=== PATIENT | male | born 1990 | race Caucasian/White ===

== ENCOUNTER 2021-10-02 22:54 | Inpatient (IN) | payer OTHER, SELFPAY ==
[2021-10-02 23:11] VITALS: BMI 27.4
--- NOTE | 2021-10-02 23:13 | ED_ITS ---
HPI - Psych General Chief Complaint: Psychiatric Symptoms <Soraida Nunez NP - Last Filed: 10/03/21 01:59> Stated Complaint: crisis/SI with plan <Soraida Nunez NP - Last Filed: 10/03/21 01:59> Time Seen by Provider: 10/03/21 07:53 <Soraida Nunez NP - Last Filed: 10/03/21 01:59> Source: patient <Soraida Nunez NP - Last Filed: 10/03/21 01:59> Mode of arrival: ambulatory <Soraida Nunez NP - Last Filed: 10/03/21 01:59> Limitations: altered mental status <Soraida Nunez NP - Last Filed: 10/03/21 01:59> History of Present Illness HPI Narrative: 31-year-old male presents for crisis evaluation. Patient is delusional, religiously preoccupied, and is not answering any questions appropriately. <Soraida Nunez NP - Last Filed: 10/03/21 01:59> MD complaint: other (Acute psychosis) <Soraida Nunez NP - Last Filed: 10/03/21 01:59> Onset (ago): unknown <Soraida Nunez NP - Last Filed: 10/03/21 01:59> History of same: Yes <Soraida Nunez NP - Last Filed: 10/03/21 01:59> Context: not taking psychiatric medications <Soraida Nunez NP - Last Filed: 09/08 12/28 01:59> Associated psychiatric symptoms: suicidal ideation, auditory hallucinations, visual hallucinations and delusions <Soradia Nunez NP - Last Filed: 10/03/21 01:59> Treatments prior to arrival: none <Soraida Nunez NP - Last Filed: 10/03/21 01:59> Related Data Home Medications: Home Medications Medication Instructions Recorded Confirmed atenolol 100 mg tablet 1 tab PO DAILY 10/03/21 10/03/21 <Soraida Nunez NP - Last Filed: 10/03/21 01:59> Allergies/Adverse Reactions: Allergies Allergy/AdvReac Type Severity Reaction Status Date / Time Sulfa (Sulfonamide Allergy Unknown RASH Verified 10/03/21 06:12 Antibiotics) tomato [TOMATO] Allergy Unknown MIGRAINS Verified 10/03/21 06:13 <Soraida Nunez NP - Last Filed: 10/03/21 01:59> Review of Systems Review of Systems: Yes Unobtainable due to mental status <Soraida Nunez NP - Last Filed: 10/03/21 01:59> [facility] Past Medical History Attestation statement: The following information was validated with the patient. <Soraida Nunez NP - Last Filed: 10/03/21 01:59> Source: old records reviewed <Soraida Nunez NP - Last Filed: 10/03/21 01:59> Social History Social History: Social History Advance Directives: No Healthcare Proxy: No Guardian: No <Soraida Nunez NP - Last Filed: 10/03/21 01:59> Physical Exam Vital Signs: Vital Signs: Last Vital Signs Temp 99.0 F 10/02/21 23:20 Pulse 79 10/03/21 02:05 Resp 16 10/03/21 02:05 BP 135/85 10/03/21 02:05 Pulse Ox 96 10/03/21 02:05 BMI result Body Mass Index 27.4 <Soraida Nunez NP - Last Filed: 10/03/21 01:59> Vital Signs: Last Vital Signs Temp 99.0 F 10/02/21 23:20 Pulse 79 10/03/21 02:05 Resp 16 10/03/21 02:05 BP 135/85 10/03/21 02:05 Pulse Ox 96 10/03/21 02:05 BMI result Body Mass Index 27.4 <SARAI Chew - Last Filed: 10/03/21 09:26> Appearance: Alert. Severe emotional distress. Paranoid. Eyes: Pupils equal, round and reactive to light. Sclera nonicteric. ENT: Pharynx normal. Neck: Normal inspection. Neck supple. CVS: Normal heart rate and rhythm. Pulses normal. Respiratory: No respiratory distress. Breath sounds normal. Abdomen: Soft and nontender. Skin: Skin warm and dry. Normal skin color. Normal skin turgor. Extremities: Feet are braced and excoriated, discoloration due to the dye in his shoes. Neuro: No motor deficit. No sensory deficit. <Soraida Nunez NP - Last Filed: 10/03/21 01:59> Course Course Course Narrative: 31-year-old male, acutely psychotic, not able to answer any questions appropriately. Stated that he is trying to keep ?a badness inside?. Patient is screaming, jumping on his bed trying to punch people in the face. Patient is non redirectable. Chemical and physical restraints required to keep this patient safe. Feet were noted to be black due to the dye in his shoes, has multiple abrasions to his toes and soles of his feet. Will update Tdap vaccine at this time. Section 12. Patient has not picked up any psychiatric medications since December of 2020. 23:58 patient continues to pull at his restraints, yelling, not making any l ogical statements. 00:15 restraints removed, patient asleep, brisk circulation to all extremities. Tox screen positive for marijuana. observation started at this time. <Soraida Nunez NP - Last Filed: 10/03/21 01:59> Reevaluation(s) Reevaluation #1: Physician observation continued. Patient is an inpatient bed search. Speech not making sense at times, exhibiting paranoia and psychosis. Atenolol only medication on med rec. BP 130/80 today, will continue atenolol and add zypr exa 5 mg BID PRN for now. Will continue to monitor. <SARAI Chew - Last Filed: 10/03/21 09:26> MDM - Psych MDM Narrative Medical decision making narrative: <Soraida Nunez NP - Last Filed: 10/03/21 01:59> Differential Diagnosis Differential diagnosis: Likely acute psychosis, suicidal ideation, bipolar disorder, depression and drug-induced psychotic disorder <Soraida Nunez NP - Last Filed: 10/03/21 01:59> Medical Records Attestation: I reviewed the patient's medical records. <JULIAN Low Last Filed: 10/03/21 01:59> Lab Data Attestation: I reviewed the patient's lab results. <Soraida Nunez NP - Last Filed: 10/03/21 01:59> Result diagrams: : 10/02/21 23:32 10/02/21 23:32 <Franchescashelly Enrique [employer]ER - Last Filed: 10/03/21 01:59> Labs: Lab Results 10/02/21 10/02/21 10/02/21 Range/Units 23:32 23:32 23:32 WBC 14.5 H (4.8-10.8) X10*3/uL RBC 4.95 (4.60-5.80) X10*6/uL Hgb 15.6 (14.0-18.0) g/dl Hct 44.4 (42.0-52.0) % MCV 89.7 (80.0-98.0) fL MCH 31.5 (27.0-33.0) pg MCHC 35.1 (31.0-36.0) g/dl RDW 13.0 (11.0-16.0) % Plt Count 292 (160-400) X10*3/uL MPV 11.4 (9.4-12.4) fL Immature Gran % (Auto) 0.3 (0.0-0.4) % Neut % (Auto) 56.9 (45-73) % Lymph % (Auto) 32.6 (20-40) % Gulf % (Auto) 8.4 (2-11) % Eos % (Auto) 1.4 (0-4) % Baso % (Auto) 0.4 (0-2) % Lymph # (Auto) 4.7 (1.2-4.9) X10*3/uL Gulf # (Auto) 1.2 (0.1-1.2) X10*3/uL Eos # (Auto) 0.2 (0.0-0.4) X10*3/uL Baso # (Auto) 0.1 (0.0-0.2) X10*3/uL Abs Immat Gran (auto) 0.05 H (0.00-0.03) X10*3/uL Absolute Neuts (auto) 8.2 (2.0-8.3) x10*3/uL Absolute Nucleated RBC 0.000 (0.0-0.012) X10*3/uL Nucleated RBC % (auto) 0.0 (0.0-0.2) /100WBC Sodium 140 (135-145) mmol/L Potassium 3.3 (3.3-5.1) mmol/L Chloride 104 (96-108) mmol/L Carbon Dioxide 17 L (22-29) mmol/L Anion Gap 22 H (12-20) BUN 10 (9-16) mg/dL Creatinine 1.33 (0.5-1.4) mg/dL Estim Creat Clear Calc 79.4 Estimated GFR > 60 Random Glucose 123 H (60-115) mg/dL Calcium 9.9 (8.4-10.2) mg/dL Total Bilirubin 0.4 (0.0-1.0) mg/dL AST 59 H (5-37) U/L ALT 43 H (0-40) U/L Alkaline Phosphatase 85 (39-117) U/L Total Protein 7.5 (6.5-8.0) g/dL Albumin 4.7 (3.5-5.0) g/dL Urine Color Urine Appearance Urine pH (5.0-8.0) Ur Specific Kelley (1.005-1.025) Urine Protein (NEG-TRACE) MG/DL Urine Glucose (UA) (NEG) MG/DL Urine Ketones (NEG) MG/DL Urine Blood (NEG) Urine Nitrite (NEG) Ur Leukocyte Esterase (NEG) Salicylates 18.5 (15-30) mg/dL Urine Opiates Screen (Not Detect) Urine Fentanyl Screen (Not Detect) Acetaminophen 21 (<30) mcg/mL Ur Barbiturates Screen (Not Detect) Ur Phencyclidine Scrn (Not Detect) Ur Amphetamines Screen (Not Detect) U Benzodiazepines Scrn (Not Detect) Urine Cocaine Screen (Not Detect) U Marijuana (THC) Screen (Not Detect) Ethyl Alcohol mg/dL COVID-19 (CORY) Negative (Negative) COVID-19 Clin Com See Note 10/02/21 10/02/21 10/02/21 Range/Units 23:32 23:32 23:36 WBC (4.8-10.8) X10*3/uL RBC (4.60-5.80) X10*6/uL Hgb (14.0-18.0) g/dl Hct (42.0-52.0) % MCV (80.0-98.0) fL MCH (27.0-33.0) pg MCHC (31.0-36.0) g/dl RDW (11.0-16.0) % Plt Count (160-400) X10*3/uL MPV (9.4-12.4) fL Immature Gran % (Auto) (0.0-0.4) % Neut % (Auto) (45-73) % Lymph % (Auto) (20-40) % Gulf % (Auto) (2-11) % Eos % (Auto) (0-4) % Baso % (Auto) (0-2) % Lymph # (Auto) (1.2-4.9) X10*3/uL Gulf # (Auto) (0.1-1.2) X10*3/uL Eos # (Auto) (0.0-0.4) X10*3/uL Baso # (Auto) (0.0-0.2) X10*3/uL Abs Immat Gran (auto) (0.00-0.03) X10*3/uL Absolute Neuts (auto) (2.0-8.3) x10*3/uL Absolute Nucleated RBC (0.0-0.012) X10*3/uL Nucleated RBC % (auto) (0.0-0.2) /100WBC Sodium (135-145) mmol/L Potassium (3.3-5.1) mmol/L Chloride (96-108) mmol/L Carbon Dioxide (22-29) mmol/L Anion Gap (12-20) BUN (9-16) mg/dL Creatinine (0.5-1.4) mg/dL Estim Creat Clear Calc Estimated GFR Random Glucose (60-115) mg/dL Calcium (8.4-10.2) mg/dL Total Bilirubin (0.0-1.0) mg/dL AST (5-37) U/L ALT (0-40) U/L Alkaline Phosphatase (39-117) U/L Total Protein (6.5-8.0) g/dL Albumin (3.5-5.0) g/dL Urine Color YELLOW Urine Appearance CLEAR Urine pH 6.0 (5.0-8.0) Ur Specific Kelley 1.020 (1.005-1.025) Urine Protein NEG (NEG-TRACE) MG/DL Urine Glucose (UA) NEG (NEG) MG/DL Urine Ketones 5 (NEG) MG/DL Urine Blood NEG (NEG) Urine Nitrite NEG (NEG) Ur Leukocyte Esterase NEG (NEG) Salicylates (15-30) mg/dL Urine Opiates Screen Not Detected (Not Detect) Urine Fentanyl Screen Not Detected (Not Detect) Acetaminophen (<30) mcg/mL Ur Barbiturates Screen Not Detected (Not Detect) Ur Phencyclidine Scrn Not Detected (Not Detect) Ur Amphetamines Screen Not Detected (Not Detect) U Benzodiazepines Scrn Not Detected (Not Detect) Urine Cocaine Screen Not Detected (Not Detect) U Marijuana (THC) Screen POSITIVE H (Not Detect) Ethyl Alcohol < 10 mg/dL COVID-19 (CORY) (Negative) COVID-19 Clin Com <Soraida Nunez NP - Last Filed: 10/03/21 01:59> Lab Results 10/02/21 10/02/21 10/02/21 Range/Units 23:32 23:32 23:32 WBC 14.5 H (4.8-10.8) X10*3/uL RBC 4.95 (4.60-5.80) X10*6/uL Hgb 15.6 (14.0-18.0) g/dl Hct 44.4 (42.0-52.0) % MCV 89.7 (80.0-98.0) fL MCH 31.5 (27.0-33.0) pg MCHC 35.1 (31.0-36.0) g/dl RDW 13.0 (11.0-16.0) % Plt Count 292 (160-400) X10*3/uL MPV 11.4 (9.4-12.4) fL Immature Gran % (Auto) 0.3 (0.0-0.4) % Neut % (Auto) 56.9 (45-73) % Lymph % (Auto) 32.6 (20-40) % Gulf % (Auto) 8.4 (2-11) % Eos % (Auto) 1.4 (0-4) % Baso % (Auto) 0.4 (0-2) % Lymph # (Auto) 4.7 (1.2-4.9) X10*3/uL Gulf # (Auto) 1.2 (0.1-1.2) X10*3/uL Eos # (Auto) 0.2 (0.0-0.4) X10*3/uL Baso # (Auto) 0.1 (0.0-0.2) X10*3/uL Abs Immat Gran (auto) 0.05 H (0.00-0.03) X10*3/uL Absolute Neuts (auto) 8.2 (2.0-8.3) x10*3/uL Absolute Nucleated RBC 0.000 (0.0-0.012) X10*3/uL Nucleated RBC % (auto) 0.0 (0.0-0.2) /100WBC Sodium 140 (135-145) mmol/L Potassium 3.3 (3.3-5.1) mmol/L Chloride 104 (96-108) mmol/L Carbon Dioxide 17 L (22-29) mmol/L Anion Gap 22 H (12-20) BUN 10 (9-16) mg/dL Creatinine 1.33 (0.5-1.4) mg/dL Estim Creat Clear Calc 79.4 Estimated GFR > 60 Random Glucose 123 H (60-115) mg/dL Calcium 9.9 (8.4-10.2) mg/dL Total Bilirubin 0.4 (0.0-1.0) mg/dL AST 59 H (5-37) U/L ALT 43 H (0-40) U/L Alkaline Phosphatase 85 (39-117) U/L Total Protein 7.5 (6.5-8.0) g/dL Albumin 4.7 (3.5-5.0) g/dL Urine Color Urine Appearance Urine pH (5.0-8.0) Ur Specific Kelley (1.005-1.025) Urine Protein (NEG-TRACE) MG/DL Urine Glucose (UA) (NEG) MG/DL Urine Ketones (NEG) MG/DL Urine Blood (NEG) Urine Nitrite (NEG) Ur Leukocyte Esterase (NEG) Salicylates 18.5 (15-30) mg/dL Urine Opiates Screen (Not Detect) Urine Fentanyl Screen (Not Detect) Acetaminophen 21 (<30) mcg/mL Ur Barbiturates Screen (Not Detect) Ur Phencyclidine Scrn (Not Detect) Ur Amphetamines Screen (Not Detect) U Benzodiazepines Scrn (Not Detect) Urine Cocaine Screen (Not Detect) U Marijuana (THC) Screen (Not Detect) Ethyl Alcohol mg/dL COVID-19 (CORY) Negative (Negative) COVID-19 Clin Com See Note 10/02/21 10/02/21 10/02/21 Range/Units 23:32 23:32 23:36 WBC (4.8-10.8) X10*3/uL RBC (4.60-5.80) X10*6/uL Hgb (14.0-18.0) g/dl Hct (42.0-52.0) % MCV (80.0-98.0) fL MCH (27.0-33.0) pg MCHC (31.0-36.0) g/dl RDW (11.0-16.0) % Plt Count (160-400) X10*3/uL MPV (9.4-12.4) fL Immature Gran % (Auto) (0.0-0.4) % Neut % (Auto) (45-73) % Lymph % (Auto) (20-40) % Gulf % (Auto) (2-11) % Eos % (Auto) (0-4) % Baso % (Auto) (0-2) % Lymph # (Auto) (1.2-4.9) X10*3/uL Gulf # (Auto) (0.1-1.2) X10*3/uL Eos # (Auto) (0.0-0.4) X10*3/uL Baso # (Auto) (0.0-0.2) X10*3/uL Abs Immat Gran (auto) (0.00-0.03) X10*3/uL Absolute Neuts (auto) (2.0-8.3) x10*3/uL Absolute Nucleated RBC (0.0-0.012) X10*3/uL Nucleated RBC % (auto) (0.0-0.2) /100WBC Sodium (135-145) mmol/L Potassium (3.3-5.1) mmol/L Chloride (96-108) mmol/L Carbon Dioxide (22-29) mmol/L Anion Gap (12-20) BUN (9-16) mg/dL Creatinine (0.5-1.4) mg/dL Estim Creat Clear Calc Estimated GFR Random Glucose (60-115) mg/dL Calcium (8.4-10.2) mg/dL Total Bilirubin (0.0-1.0) mg/dL AST (5-37) U/L ALT (0-40) U/L Alkaline Phosphatase (39-117) U/L Total Protein (6.5-8.0) g/dL Albumin (3.5-5.0) g/dL Urine Color YELLOW Urine Appearance CLEAR Urine pH 6.0 (5.0-8.0) Ur Specific Kelley 1.020 (1.005-1.025) Urine Protein NEG (NEG-TRACE) MG/DL Urine Glucose (UA) NEG (NEG) MG/DL Urine Ketones 5 (NEG) MG/DL Urine Blood NEG (NEG) Urine Nitrite NEG (NEG) Ur Leukocyte Esterase NEG (NEG) Salicylates (15-30) mg/dL Urine Opiates Screen Not Detected (Not Detect) Urine Fentanyl Screen Not Detected (Not Detect) Acetaminophen (<30) mcg/mL Ur Barbiturates Screen Not Detected (Not Detect) Ur Phencyclidine Scrn Not Detected (Not Detect) Ur Amphetamines Screen Not Detected (Not Detect) U Benzodiazepines Scrn Not Detected (Not Detect) Urine Cocaine Screen Not Detected (Not Detect) U Marijuana (THC) Screen POSITIVE H (Not Detect) Ethyl Alcohol < 10 mg/dL COVID-19 (CORY) (Negative) COVID-19 Clin Com <SARAI Chew - Last Filed: 10/03/21 09:26> Discharge Plan Discharge Clinical Impression: Acute psychosis <Soraida Nunez NP - Last Filed: 10/03/21 01:59> Patient Disposition: Still a Patient <Soraida Nunez NP - Last Filed: 10/03/21 01:59> Prescriptions: No Action atenolol 100 mg tablet 1 tab PO DAILY 0RF <Soraida Nunez NP - Last Filed: 10/03/21 01:59>
[2021-10-02 23:20] VITALS: BP 141/96; PULSE 115; RESP 22; TEMP 37.2; O2SAT 98
[2021-10-02 23:30] VITALS: RESP 20
[2021-10-02] MEDS: diphenhydrAMINE HCL 50 MG/ML VIAL IM (23:30)
[2021-10-02] MEDS: LORazepam 2 MG/ML VIAL IM (23:30)
[2021-10-02] MEDS: Haloperidol Lactate 5 MG/ML VIAL IM (23:30)
[2021-10-02 23:45] VITALS: RESP 20
[2021-10-02 23:46] LABS: MANUAL DIFF FLAG NO
[2021-10-02 23:48] LABS: Appearance Urine CLEAR; Color Urine YELLOW; Glucose Urine UA NEG (NEG); Leukocyte Esterase Urine NEG (NEG); Nitrite Urine NEG (NEG); Urine Blood NEG (NEG); Urine Ketones 5 MG/DL (NEG); Urine Protein NEG (NEG-TRACE)
[2021-10-02 23:48] LABS: Basophils Absolute Auto 0.1 X10*3/uL (0.0-0.2); Basophils Percent Auto 0.4 % (0-2); Eosinophils Absolute Auto 0.2 X10*3/uL (0.0-0.4); Eosinophils Percent Auto 1.4 % (0-4); Hematocrit 44.4 % (42.0-52.0); Hemoglobin 15.6 g/dl (14.0-18.0); Imm Gran Abs Auto 0.05 X10*3/uL (0.00-0.03); Imm Gran Pct Auto 0.3 % (0.0-0.4); Lymphocytes Absolute Auto 4.7 X10*3/uL (1.2-4.9); Lymphocytes Percent Auto 32.6 % (20-40); Mean Corpuscular HGB Conc 35.1 g/dl (31.0-36.0); Mean Corpuscular Hemoglobin 31.5 pg (27.0-33.0); Mean Corpuscular Volume 89.7 fL (80.0-98.0); Mean Platelet Volume 11.4 fL (9.4-12.4); Monocytes Absolute Auto 1.2 X10*3/uL (0.1-1.2); Monocytes Percent Auto 8.4 % (2-11); Neutrophils Absolute Auto 8.2 x10*3/uL (2.0-8.3); Neutrophils Percent Auto 56.9 % (45-73); Platelet Count 292 X10*3/uL (160-400); Red Blood Count 4.95 X10*6/uL (4.60-5.80); White Blood Count 14.5 X10*3/uL (4.8-10.8)
[2021-10-02] MEDS: Diphth,Pertus(ACell),Tet Adult 0.5 ML SYRINGE IM (23:48)
[2021-10-03] VITALS (7 sets, daily range): BP systolic 114–135; BP diastolic 63–85; PULSE 51–79; RESP 16–20; TEMP 37.2; O2SAT 96–99
--- NOTE | 2021-10-03 | ECG_ITS ---
Test Reason : cp Blood Pressure : / mmHG Vent. Rate : 051 BPM Atrial Rate : 051 BPM P-R Int : 138 ms QRS Dur : 096 ms QT Int : 432 ms P-R-T Axes : 025 058 043 degrees QTc Int : 398 ms Sinus bradycardia with sinus arrhythmia Otherwise normal ECG When compared with ECG of 15-OCT-2017 21:03, Vent. rate has decreased BY 38 BPM QT has shortened Referred By: Yesica Douglass Electronically Signed By:BEATRIZ LOWE
[2021-10-03 00:04] LABS: Amphetamine Screen Urine Not Detected (Not Detect); Barbiturates, Urine Not Detected (Not Detect); Benzodiazepines Screen Urine Not Detected (Not Detect); Cannabinoid Screen Urine POSITIVE (Not Detect); Cocaine Screen Urine Not Detected (Not Detect); Fentanyl, urine Not Detected (Not Detect); Opiate Screen Urine Not Detected (Not Detect); Phencyclidine Screen Urine Not Detected (Not Detect)
[2021-10-03 00:10] LABS: COVID-19 Test Negative (Negative); Ethanol < 10 mg/dL; IDNOW Serial# 55D5AD1C
[2021-10-03 00:16] LABS: Alanine Aminotransferase 43 U/L (0-40); Albumin Level 4.7 g/dL (3.5-5.0); Alkaline Phosphatase 85 U/L (39-117); Anion Gap 22 (12-20); Aspartate Amino Transferase 59 U/L (5-37); Bilirubin Total 0.4 mg/dL (0.0-1.0); Blood Urea Nitrogen 10 mg/dL (9-16); Calcium 9.9 mg/dL (8.4-10.2); Carbon Dioxide 17 mmol/L (22-29); Chloride 104 mmol/L (96-108); Creatinine Clr Calc Pharmacy 79.4; Estimated Glomerular Filt Rate > 60; Glucose Random 123 mg/dL (60-115); Potassium 3.3 mmol/L (3.3-5.1); Sodium 140 mmol/L (135-145); Total Protein 7.5 g/dL (6.5-8.0)
--- NOTE | 2021-10-03 00:40 | PC.NURSE ---
Patient was extremely psychotic, loud and disruptive, when security tried to intervene patient stood up on his bed and made defensive posture, verbally abusive towards staff member and threatening, unable to redirect, no safety awareness, become combative towards staff member, provider ordered mechanical and chemical restrain at 2330, Ativan 2 mg IM + Haldol 5 mg IM + Benadryl 50 mg administered at 2330 as ordered, Tdap was administered for sore on bilateral feet from excessive walking as reported by the patient, Mechanical restraint was discontinued at 0015, ROM intact, one to one observation discontinued at 0030, patient is currently in bed appears sleeping, will continue to monitor.
[2021-10-03 00:59] LABS: Acetaminophen LAB 21 mcg/mL (<30); Salicylate 18.5 mg/dL (15-30)
--- NOTE | 2021-10-03 06:32 | PC.NURSE ---
Patient is s/p restraint, slept through the night, [facility] referral completed/confirmed/pending ETA, care team made aware, patient's thought content is delusional and paranoid, religiously preoccupied, behavior unpredictable, VSS, patient is off his medication since 2020, patient's feet requires attention when awake, will continue to monitor.
--- NOTE | 2021-10-03 07:05 | PC.NURSE ---
patient appears to remain asleep at present respirations are even and unlabored patient appears in no distress
[2021-10-03] MEDS: OLANZapine 5 MG TABLET PO ×2 (10:50→22:00)
[2021-10-03] MEDS: Ibuprofen 600 MG TABLET PO ×2 (10:50→22:07)
[2021-10-03] MEDS: atenoloL 100 MG TABLET PO (10:50)
[2021-10-04] MEDS: traZODone HCL 100 MG TABLET PO ×2 (00:25→21:25)
[2021-10-04] MEDS: LORazepam 1 MG TABLET PO ×3 (00:25→21:20)
[2021-10-04] MEDS: risperiDONE 1 MG TABLET PO ×3 (00:26→20:23)
--- NOTE | 2021-10-04 01:45 | PC.ADMIT ---
Nnamdi is a 31 year old male, Japanese speaking who presented to [facility] ED with SI with a plan to slit his throat. Patient was demonstrating bizarre behavior, amish preoccupation and delusion thoughts. Patient was placed in 4 point restraints and given IM medication in the ED pod for threatening behavior. On arrival to [facility], patient was polite and cooperative with admission process. Patient stated elevated anxiety and depression. Patient currently denies SI/HI. Patient reports AH but states its not really voices I hear but more of thoughts being directly implanted into my mind . Patient has a hx of hypertension and asthma. Patient has contracted for safety on the unit. UTOX + for marijuana. Covid - Patient has some wounds on the bottom of his feet from walking lomg distances. He wished to go to bed and asked if he could show them to this nurse and the MD in the morning.
[2021-10-04 07:00] VITALS: BMI 27.4
[2021-10-04 08:00] VITALS: BP 131/101; PULSE 100; RESP 17; TEMP 36.4; O2SAT 98
[2021-10-04] MEDS: atenoloL 100 MG TABLET PO (08:31)
[2021-10-04 08:55] LABS: MANUAL DIFF FLAG NO
[2021-10-04] MEDS: Nicotine 21 MG PATCH.TD24 TRANSDERMA (08:55)
[2021-10-04 09:12] LABS: Estimated Average Glucose 103 mg/dL; Hemoglobin A1c % 5.2 %
[2021-10-04 09:13] LABS: Basophils Percent Auto 0.3 % (0-2); Eosinophils Absolute Auto 0.3 X10*3/uL (0.0-0.4); Eosinophils Percent Auto 4.5 % (0-4); Hematocrit 46.5 % (42.0-52.0); Hemoglobin 15.6 g/dl (14.0-18.0); Imm Gran Abs Auto 0.02 X10*3/uL (0.00-0.03); Imm Gran Pct Auto 0.3 % (0.0-0.4); Lymphocytes Absolute Auto 2.9 X10*3/uL (1.2-4.9); Lymphocytes Percent Auto 42.1 % (20-40); Mean Corpuscular HGB Conc 33.5 g/dl (31.0-36.0); Mean Corpuscular Hemoglobin 31.1 pg (27.0-33.0); Mean Corpuscular Volume 92.8 fL (80.0-98.0); Mean Platelet Volume 11.7 fL (9.4-12.4); Monocytes Absolute Auto 0.6 X10*3/uL (0.1-1.2); Neutrophils Absolute Auto 3.1 x10*3/uL (2.0-8.3); Neutrophils Percent Auto 44.8 % (45-73); Platelet Count 257 X10*3/uL (160-400); Red Blood Count 5.01 X10*6/uL (4.60-5.80); Red Cell Distribution Width 13.4 % (11.0-16.0); White Blood Count 6.9 X10*3/uL (4.8-10.8)
[2021-10-04] MEDS: Ibuprofen 600 MG TABLET PO ×2 (09:14→20:33)
[2021-10-04 10:15] LABS: Folate 8.4 ng/mL (> or = 4.0); Vitamin B12 552 pg/mL (200-900)
[2021-10-04 10:33] LABS: Alanine Aminotransferase 32 U/L (0-40); Albumin Level 4.2 g/dL (3.5-5.0); Alkaline Phosphatase 85 U/L (39-117); Anion Gap 12 (12-20); Aspartate Amino Transferase 40 U/L (5-37); Bilirubin Total 0.4 mg/dL (0.0-1.0); Blood Urea Nitrogen 15 mg/dL (9-16); Calcium 9.7 mg/dL (8.4-10.2); Carbon Dioxide 27 mmol/L (22-29); Chloride 104 mmol/L (96-108); Cholesterol 173 mg/dL; Estimated Glomerular Filt Rate > 60; Glucose Fasting 108 mg/dL (60-99); HDL Cholesterol 55 mg/dL; LDL Cholesterol Calculated 83 mg/dl; Potassium 4.4 mmol/L (3.3-5.1); Sodium 139 mmol/L (135-145); Total Protein 6.7 g/dL (6.5-8.0); Triglycerides 175 mg/dL
[2021-10-04 10:36] LABS: Thyroid Stimulating Hormone 1.31 uIU/mL (0.32-4.0)
[2021-10-04] MEDS: carBAMazepine ER 200 MG TAB.ER.12H PO ×2 (12:27→20:23)
--- NOTE | 2021-10-04 14:38 | HO.PSYADMNOT ---
HPI Date of Service: 10/04/21 Chief Complaint: psychosis HPI Narrative: pt self-presented to the ED with c/o SI with plan to slit his throat. he was noted to display prominent psychotic symptoms including bizarre behavior, disorganization, mormon preoccupation, delusions, and labile mood. he was reported to be homeless and not taking psychiatric medications. on interview with psych MD, pt was pleasant and cooperative, if pressured and somewhat disorganized. described a bad experience with [facility] in [place], feeling not well-served by them. they would only see him virtually and he wanted F2F mtgs, so he stopped attending sessions and then his scripts lapsed. he had been staying at a sober house at the time, but then left after he got off of his medications. he is eager to restart meds, asking to remain on risperidone at the moment. asks for ativan, MD agrees to give him 1 BID for now with taper prior to discharge. MD also suggests sisi and that he should take mood stabilizer. pt declines lithium or VPA but agrees to take tegretol, which he has been on in the past. Past Psychiatric History: h/o numerous psych hosps including one on [facility] in 2011 (pt estimates 8 or 9 admissions). Dx of bipolar D/O. h/o care through [facility] and [facility]. h/o SI and SA via overdose. h/o superficial cutting and punching lewis during adolescence. Medical Evaluation Reviewed: Yes PMFSH Family History: maternal side: anxiety, depression, alcohol dependence paternal side: schizoaffective disorder Social History: pt has one older brother and a younger brother and younger sister. all children have h/o having been removed from home by DCF at some point and having lived in foster care. relationship with family members described as strained. 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 h/o CSS/TSS sober living programs. he states he has not used barbiturates for 6 years and benzos or opioids for 4 years. he states he drank alcohol 1 day only about 2 days ago, but does not drink regularly. he reports regular use of cannabis, and his tox screen was positive for cannabis only. Trauma History: none noted Diagnostics Vital Signs (24Hr): Vital Signs - 24 hr 10/03/21 16:12 10/04/21 08:00 Temperature 98.9 F 97.6 F Pulse Rate 51 100 Respiratory Rate 16 17 Blood Pressure 114/63 131/101 H Pulse Oximetry 99 98 BMI result Body Mass Index 27.4 Labs Results: 10/04/21 08:45 10/04/21 08:45 Labs: Laboratory Results - last 48 hr 10/02/21 10/02/21 10/02/21 23:32 23:32 23:32 WBC 14.5 H RBC 4.95 Hgb 15.6 Hct 44.4 MCV 89.7 MCH 31.5 MCHC 35.1 RDW 13.0 Plt Count 292 MPV 11.4 Immature Gran % (Auto) 0.3 Neut % (Auto) 56.9 Lymph % (Auto) 32.6 [place] % (Auto) 8.4 Eos % (Auto) 1.4 Baso % (Auto) 0.4 Lymph # (Auto) 4.7 [place] # (Auto) 1.2 Eos # (Auto) 0.2 Baso # (Auto) 0.1 Abs Immat Gran (auto) 0.05 H Absolute Neuts (auto) 8.2 Absolute Nucleated RBC 0.000 Nucleated RBC % (auto) 0.0 Sodium 140 Potassium 3.3 Chloride 104 Carbon Dioxide 17 L Anion Gap 22 H BUN 10 Creatinine 1.33 Estim Creat Clear Calc 79.4 Estimated GFR > 60 Random Glucose 123 H Fasting Glucose Estimat Average Glucose Hemoglobin A1c % Calcium 9.9 Total Bilirubin 0.4 AST 59 H ALT 43 H Alkaline Phosphatase 85 Total Protein 7.5 Albumin 4.7 Triglycerides Cholesterol LDL Cholesterol, Calc HDL Cholesterol Vitamin B12 Folate TSH Urine Color Urine Appearance Urine pH Ur Specific [place] Urine Protein Urine Glucose (UA) Urine Ketones Urine Blood Urine Nitrite Ur Leukocyte Esterase Salicylates 18.5 Urine Opiates Screen Urine Fentanyl Screen Acetaminophen 21 Ur Barbiturates Screen Ur Phencyclidine Scrn Ur Amphetamines Screen U Benzodiazepines Scrn Urine Cocaine Screen U Marijuana (THC) Screen Ethyl Alcohol COVID-19 (CORY) Negative COVID-19 Clin Com See Note 10/02/21 10/02/21 10/02/21 23:32 23:32 23:36 WBC RBC Hgb Hct MCV MCH MCHC RDW Plt Count MPV Immature Gran % (Auto) Neut % (Auto) Lymph % (Auto) [place] % (Auto) Eos % (Auto) Baso % (Auto) Lymph # (Auto) [place] # (Auto) Eos # (Auto) Baso # (Auto) Abs Immat Gran (auto) Absolute Neuts (auto) Absolute Nucleated RBC Nucleated RBC % (auto) Sodium Potassium Chloride Carbon Dioxide Anion Gap BUN Creatinine Estim Creat Clear Calc Estimated GFR Random Glucose Fasting Glucose Estimat Average Glucose Hemoglobin A1c % Calcium Total Bilirubin AST ALT Alkaline Phosphatase Total Protein Albumin Triglycerides Cholesterol LDL Cholesterol, Calc HDL Cholesterol Vitamin B12 Folate TSH Urine Color YELLOW Urine Appearance CLEAR Urine pH 6.0 Ur Specific [place] 1.020 Urine Protein NEG Urine Glucose (UA) NEG Urine Ketones 5 Urine Blood NEG Urine Nitrite NEG Ur Leukocyte Esterase NEG Salicylates Urine Opiates Screen Not Detected Urine Fentanyl Screen Not Detected Acetaminophen Ur Barbiturates Screen Not Detected Ur Phencyclidine Scrn Not Detected Ur Amphetamines Screen Not Detected U Benzodiazepines Scrn Not Detected Urine Cocaine Screen Not Detected U Marijuana (THC) Screen POSITIVE H Ethyl Alcohol < 10 COVID-19 (CORY) COVID-19 Why Not Give Back 10/04/21 10/04/21 10/04/21 08:45 08:45 08:45 WBC RBC Hgb Hct MCV MCH MCHC RDW Plt Count MPV Immature Gran % (Auto) Neut % (Auto) Lymph % (Auto) [place] % (Auto) Eos % (Auto) Baso % (Auto) Lymph # (Auto) [place] # (Auto) Eos # (Auto) Baso # (Auto) Abs Immat Gran (auto) Absolute Neuts (auto) Absolute Nucleated RBC Nucleated RBC % (auto) Sodium 139 Potassium 4.4 D Chloride 104 Carbon Dioxide 27 Anion Gap 12 BUN 15 Creatinine 1.20 Estim Creat Clear Calc 88.0 Estimated GFR > 60 Random Glucose Fasting Glucose 108 H Estimat Average Glucose 103 Hemoglobin A1c % 5.2 Calcium 9.7 Total Bilirubin 0.4 AST 40 H ALT 32 Alkaline Phosphatase 85 Total Protein 6.7 Albumin 4.2 Triglycerides 175 Cholesterol 173 LDL Cholesterol, Calc 83 HDL Cholesterol 55 Vitamin B12 552 Folate 8.4 TSH 1.31 Urine Color Urine Appearance Urine pH Ur Specific [place] Urine Protein Urine Glucose (UA) Urine Ketones Urine Blood Urine Nitrite Ur Leukocyte Esterase Salicylates Urine Opiates Screen Urine Fentanyl Screen Acetaminophen Ur Barbiturates Screen Ur Phencyclidine Scrn Ur Amphetamines Screen U Benzodiazepines Scrn Urine Cocaine Screen U Marijuana (THC) Screen Ethyl Alcohol COVID-19 (CORY) COVID-19 [employer] Com 10/04/21 08:45 WBC 6.9 RBC 5.01 Hgb 15.6 Hct 46.5 MCV 92.8 MCH 31.1 MCHC 33.5 RDW 13.4 Plt Count 257 MPV 11.7 Immature Gran % (Auto) 0.3 Neut % (Auto) 44.8 L Lymph % (Auto) 42.1 H [place] % (Auto) 8.0 Eos % (Auto) 4.5 H Baso % (Auto) 0.3 Lymph # (Auto) 2.9 [place] # (Auto) 0.6 Eos # (Auto) 0.3 Baso # (Auto) 0.0 Abs Immat Gran (auto) 0.02 Absolute Neuts (auto) 3.1 Absolute Nucleated RBC 0.000 Nucleated RBC % (auto) 0.0 Sodium Potassium Chloride Carbon Dioxide Anion Gap BUN Creatinine Estim Creat Clear Calc Estimated GFR Random Glucose Fasting Glucose Estimat Average Glucose Hemoglobin A1c % Calcium Total Bilirubin AST ALT Alkaline Phosphatase Total Protein Albumin Triglycerides Cholesterol LDL Cholesterol, Calc HDL Cholesterol Vitamin B12 Folate TSH Urine Color Urine Appearance Urine pH Ur Specific [place] Urine Protein Urine Glucose (UA) Urine Ketones Urine Blood Urine Nitrite Ur Leukocyte Esterase Salicylates Urine Opiates Screen Urine Fentanyl Screen Acetaminophen Ur Barbiturates Screen Ur Phencyclidine Scrn Ur Amphetamines Screen U Benzodiazepines Scrn Urine Cocaine Screen U Marijuana (THC) Screen Ethyl Alcohol COVID-19 (CORY) COVID-19 Clin Com Meds/Allergies Meds Home Medications Acetaminophen (Acetaminophen 325 Mg Tablet) 650 mg PO Q6H PRN PRN Reason: Headache/Pain Mild Scale (1-3) Al Hydroxide/Mg Hydroxide (Magnesium Hydrox/Alum Hydrox 30 Ml Oral.Susp) 30 ml PO Q6H PRN PRN Reason: Heartburn/Nausea Atenolol (Atenolol 100 Mg Tablet) 100 mg PO DAILY [facility]; Protocol Last Admin: 10/04/21 08:31 Dose: 100 mg Documented by: Carbamazepine (Carbamazepine Er 200 Mg Tab.Er.12h) 200 mg PO BID [facility] Last Admin: 10/04/21 12:27 Dose: 200 mg Documented by: Hydroxyzine HCl (Hydroxyzine Hcl 50 Mg Tablet) 50 mg PO Q6H PRN PRN Reason: Anxiety Ibuprofen (Ibuprofen 600 Mg Tablet) 600 mg PO Q8H PRN PRN Reason: moderate pain Last Admin: 10/04/21 09:14 Dose: 600 mg Documented by: Lorazepam (Lorazepam 1 Mg Tablet) 1 mg PO Q4H PRN PRN Reason: anxiety/agitation Last Admin: 10/04/21 00:25 Dose: 1 mg Documented by: Lorazepam (Lorazepam 1 Mg Tablet) 1 mg PO BID [facility] Last Admin: 10/04/21 12:27 Dose: 1 mg Documented by: Magnesium Hydroxide (Milk Of Magnesia 30 Ml Oral.Susp) 30 ml PO DAILY PRN PRN Reason: Constipation Nicotine (Nicotine 21 Mg Patch.Td24) 21 mg TRANSDERMA DAILY [facility] Last Admin: 10/04/21 08:55 Dose: 21 mg Documented by: Nicotine Polacrilex (Nicotine Polacrilex 2 Mg Gum) 2 mg BUCCAL Q1H PRN PRN Reason: Nicotine Cravings Olanzapine (Olanzapine Odt 10 Mg Tab.Rapdis) 10 mg TRANSLINGU Q6H PRN PRN Reason: agitation Risperidone (Risperidone 1 Mg Tablet) 1 mg PO BID [facility] Last Admin: 10/04/21 08:31 Dose: 1 mg Documented by: Trazodone HCl (Trazodone Hcl 100 Mg Tablet) 100 mg PO BEDTIME PRN PRN Reason: Insomnia Last Admin: 10/04/21 00:25 Dose: 100 mg Documented by: Allergies Allergies Allergy/AdvReac Type Severity Reaction Status Date / Time Sulfa (Sulfonamide Allergy Unknown RASH Verified 10/03/21 06:12 Antibiotics) tomato [TOMATO] Allergy Unknown MIGRAINS Verified 10/03/21 06:13 Mental Status Exam Mental Status Exam Narrative: pt cooperative, pleasant. moderately pressured speech, wandering thoughts. appropriately dressed and groomed. mild PMA of switching positions and seats regularly. affect full range, hyper-intense, non-labile. mood downcast. sad. upset. mood not consistent with affect. denies SI currently, [facility]RE was in the ED yesterday. denies HI/AVH. Assessment & Plan Assessment & Plan (1) Bipolar I disorder with sisi: Status: Acute Code(s): F31.10 - Bipolar disorder, current episode manic without psychotic features, unspecified Plan start tegretol 200 BID. pt states he cannot take lithium or depakote. ativan 1 BID for now, taper prior to discharge. pt aware. continue risperidone 1 BID at pt request. Patient educated on: diagnosis, medication risk/benefits and substance abuse Reason for continued inpatient stay Substantial Risk for: inability to function
[2021-10-04] MEDS: OLANZapine ODT 10 MG TAB.RAPDIS TRANSLINGU (17:43)
[2021-10-04] MEDS: Acetaminophen 325 MG TABLET 650 MG PO (17:43)
[2021-10-04 20:34] VITALS: BP 128/74; PULSE 85; TEMP 36.4; O2SAT 95
--- NOTE | 2021-10-05 06:20 | PC.NURSE ---
FEET-patient OOB at 0620 and allowed for assessment. feet are blackened from dye of slippers worn in the rain. both plantar aspect of feet are red raw with a mix of tough skin. both large toes have small open areas from wear. allowed for petroleum based ointment to be applied. does endorse pain when walking.
[2021-10-05] MEDS: atenoloL 100 MG TABLET PO (08:08)
[2021-10-05] MEDS: carBAMazepine ER 200 MG TAB.ER.12H PO ×2 (08:08→20:22)
[2021-10-05] MEDS: LORazepam 1 MG TABLET PO ×2 (08:09→22:32)
[2021-10-05] MEDS: risperiDONE 1 MG TABLET PO (08:09)
[2021-10-05] MEDS: Nicotine 21 MG PATCH.TD24 TRANSDERMA (08:11)
[2021-10-05 08:17] VITALS: BP 131/87; PULSE 78; TEMP 36.4; O2SAT 99
[2021-10-05] MEDS: OLANZapine ODT 10 MG TAB.RAPDIS TRANSLINGU ×2 (12:40→20:23)
[2021-10-05] MEDS: Acetaminophen 325 MG TABLET 650 MG PO (12:40)
--- NOTE | 2021-10-05 13:48 | P.PNPSI_ITS ---
Subjective Subjective Date of Service: 10/05/21 Reason For Visit: psychosis Interim History: pt found at nursing station chatting with nurses. calm, cooperative, well- related. disorganized and delusional, but appears to trust MD's judgment. he reports the zyprexa 10 mg PRN he gets works very well for him and he would like to DC risperidone and use zyprexa exclusively. agrees to 10 BID and 5 PRN. also asks to DC ativan, as he believes it will help him get discharged sooner. per staff, religiously preoccupied and delusional. good appetite. pain in feet from excessive walking [employer]. Mental Status Exam Mental Status Exam Narrative: pt cooperative, pleasant. moderately pressured speech, wandering thoughts. appropriately dressed and groomed. mild PMA of switching positions and seats regularly. affect full range, hyper-intense, non-labile. mood not assessed. no SI/HI/AVH expressed. Diagnostics Vital Signs (24Hr): Vital Signs - 24 hr 10/04/21 20:34 10/05/21 08:17 Temperature 97.5 F 97.6 F Pulse Rate 85 78 Blood Pressure 128/74 131/87 Pulse Oximetry 95 99 BMI result Body Mass Index 27.4 Labs Results: 10/04/21 08:45 10/04/21 08:45 Labs: Laboratory Results - last 48 hr 10/04/21 10/04/21 10/04/21 08:45 08:45 08:45 WBC RBC Hgb Hct MCV MCH MCHC RDW Plt Count MPV Immature Gran % (Auto) Neut % (Auto) Lymph % (Auto) [place] % (Auto) Eos % (Auto) Baso % (Auto) Lymph # (Auto) [place] # (Auto) Eos # (Auto) Baso # (Auto) Abs Immat Gran (auto) Absolute Neuts (auto) Absolute Nucleated RBC Nucleated RBC % (auto) Sodium 139 Potassium 4.4 D Chloride 104 Carbon Dioxide 27 Anion Gap 12 BUN 15 Creatinine 1.20 Estim Creat Clear Calc 88.0 Estimated GFR > 60 Fasting Glucose 108 H Estimat Average Glucose 103 Hemoglobin A1c % 5.2 Calcium 9.7 Total Bilirubin 0.4 AST 40 H ALT 32 Alkaline Phosphatase 85 Total Protein 6.7 Albumin 4.2 Triglycerides 175 Cholesterol 173 LDL Cholesterol, Calc 83 HDL Cholesterol 55 Vitamin B12 552 Folate 8.4 TSH 1.31 10/04/21 08:45 WBC 6.9 RBC 5.01 Hgb 15.6 Hct 46.5 MCV 92.8 MCH 31.1 MCHC 33.5 RDW 13.4 Plt Count 257 MPV 11.7 Immature Gran % (Auto) 0.3 Neut % (Auto) 44.8 L Lymph % (Auto) 42.1 H [place] % (Auto) 8.0 Eos % (Auto) 4.5 H Baso % (Auto) 0.3 Lymph # (Auto) 2.9 [place] # (Auto) 0.6 Eos # (Auto) 0.3 Baso # (Auto) 0.0 Abs Immat Gran (auto) 0.02 Absolute Neuts (auto) 3.1 Absolute Nucleated RBC 0.000 Nucleated RBC % (auto) 0.0 Sodium Potassium Chloride Carbon Dioxide Anion Gap BUN Creatinine Estim Creat Clear Calc Estimated GFR Fasting Glucose Estimat Average Glucose Hemoglobin A1c % Calcium Total Bilirubin AST ALT Alkaline Phosphatase Total Protein Albumin Triglycerides Cholesterol LDL Cholesterol, Calc HDL Cholesterol Vitamin B12 Folate TSH Medications Medications Current Medications Acetaminophen (Acetaminophen 325 Mg Tablet) 650 mg PO Q6H PRN PRN Reason: Headache/Pain Mild Scale (1-3) Last Admin: 10/05/21 12:40 Dose: 650 mg Documented by: Al Hydroxide/Mg Hydroxide (Magnesium Hydrox/Alum Hydrox 30 Ml Oral.Susp) 30 ml PO Q6H PRN PRN Reason: Heartburn/Nausea Albuterol Sulfate (Albuterol Sulfate 90 Mcg 8 Gm Inhaler) 2 puff INHALE RQ6H PRN PRN Reason: Shortness of Breath Atenolol (Atenolol 100 Mg Tablet) 100 mg PO DAILY [facility]; Protocol Last Admin: 10/05/21 08:08 Dose: 100 mg Documented by: Bacitracin (Bacitracin Oint 14 Gm Tube) 1 appl TOPICAL BID [facility]; Protocol Carbamazepine (Carbamazepine Er 200 Mg Tab.Er.12h) 200 mg PO BID [facility] Last Admin: 10/05/21 08:08 Dose: 200 mg Documented by: Hydroxyzine HCl (Hydroxyzine Hcl 50 Mg Tablet) 50 mg PO Q6H PRN PRN Reason: Anxiety Ibuprofen (Ibuprofen 600 Mg Tablet) 600 mg PO Q8H PRN PRN Reason: moderate pain Last Admin: 10/04/21 20:33 Dose: 600 mg Documented by: Lorazepam (Lorazepam 1 Mg Tablet) 1 mg PO Q4H PRN PRN Reason: anxiety/agitation Last Admin: 10/04/21 00:25 Dose: 1 mg Documented by: Magnesium Hydroxide (Milk Of Magnesia 30 Ml Oral.Susp) 30 ml PO DAILY PRN PRN Reason: Constipation Nicotine (Nicotine 21 Mg Patch.Td24) 21 mg TRANSDERMA DAILY [facility] Last Admin: 10/05/21 08:11 Dose: 21 mg Documented by: Nicotine Polacrilex (Nicotine Polacrilex 2 Mg Gum) 2 mg BUCCAL Q1H PRN PRN Reason: Nicotine Cravings Olanzapine (Olanzapine Odt 10 Mg Tab.Rapdis) 10 mg TRANSLINGU Q6H PRN PRN Reason: agitation Last Admin: 10/05/21 12:40 Dose: 10 mg Documented by: Risperidone (Risperidone 1 Mg Tablet) 1 mg PO BID [facility] Last Admin: 10/05/21 08:09 Dose: 1 mg Documented by: Trazodone HCl (Trazodone Hcl 100 Mg Tablet) 100 mg PO BEDTIME PRN PRN Reason: Insomnia Last Admin: 10/04/21 21:25 Dose: 100 mg Documented by: Allergies Allergies Allergy/AdvReac Type Severity Reaction Status Date / Time Sulfa (Sulfonamide Allergy Unknown RASH Verified 10/03/21 06:12 Antibiotics) tomato [TOMATO] Allergy Unknown MIGRAINS Verified 10/03/21 06:13 Assessment & Plan Assessment & Plan (1) Bipolar I disorder with sisi: Status: Acute Code(s): F31.10 - Bipolar disorder, current episode manic without psychotic features, unspecified Plan started tegretol 200 BID 10/04. pt states he cannot take lithium or depakote. scheduled ativan DCed 10/05 at pt request. DC risperidone 1 BID at pt request 10/05 and start zyprexa 10 BID and 5 mg PRNs. I spent ___25___ minutes with the patient and/or on the patient floor today, greater than?50% of which was spent counseling/coordinating care. Reason for contiued inpatient stay Substantial Risk for: inability to function and rapid decompensation
[2021-10-05 20:20] VITALS: BP 137/86; PULSE 77; RESP 18; TEMP 36.7; O2SAT 97
[2021-10-05] MEDS: traZODone HCL 100 MG TABLET PO ×2 (20:22→21:59)
[2021-10-05] MEDS: Ibuprofen 600 MG TABLET PO (20:22)
[2021-10-05] MEDS: hydrOXYzine HCL 50 MG TABLET PO (21:59)
[2021-10-06] MEDS: LORazepam 1 MG TABLET PO ×3 (03:26→20:50)
[2021-10-06] MEDS: OLANZapine ODT 10 MG TAB.RAPDIS 5 MG TRANSLINGU ×3 (04:43→20:49)
[2021-10-06] MEDS: Acetaminophen 325 MG TABLET 650 MG PO ×3 (04:44→18:19)
[2021-10-06] MEDS: hydrOXYzine HCL 50 MG TABLET PO ×2 (05:50→18:19)
[2021-10-06 06:00] VITALS: BP 127/73; PULSE 74; RESP 18; TEMP 36.7; O2SAT 97
[2021-10-06] MEDS: Ibuprofen 600 MG TABLET PO ×2 (07:28→20:52)
[2021-10-06] MEDS: Nicotine 21 MG PATCH.TD24 TRANSDERMA (08:41)
[2021-10-06] MEDS: atenoloL 100 MG TABLET PO (08:42)
[2021-10-06] MEDS: carBAMazepine ER 200 MG TAB.ER.12H PO ×2 (08:43→20:49)
[2021-10-06] MEDS: Bacitracin Oint 14 GM TUBE 1 APPL TOPICAL (11:26)
--- NOTE | 2021-10-06 14:38 | HO.PSYCHPN ---
Subjective Subjective Date of Service: 10/06/21 Reason For Visit: psychosis Subjective Notes: Conditional Voluntary Interim History: met with patient. Discussed with nursing. Has been largely noncompliant with medications. Hyper shinto. Today was talking about the blood of the devil being in people's shoes. Was making many shinto references, talking about hell and heaven, talking about exultation and being [employer]. Wanted to pray for employees and then talked about having hallucinations of the [place]- Unclear if these recurrent or when he was younger and difficulty to clarify. Was ambivalent around medications. Reports his sleep and appetite are okay. Denies feeling depressed or suicidal. Medication Compliance: No Side effects from medications: No Attending Groups: No Review of Systems Acute medical concerns: No Review of Systems Review of Systems unremarkable Mental Status Exam Mental Status Exam Narrative: casually dressed. Fair hygiene. Intense affect at times and does appear to be internally preoccupied at times. Guarded. Denies depression. No SI. No HI. Hyper shinto. Does appear internally preoccupied. Insight judgment poor Diagnostics Vital Signs (24Hr): Vital Signs - 24 hr 10/05/21 20:20 10/06/21 06:00 Temperature 98.0 F 98.1 F Pulse Rate 77 74 Respiratory Rate 18 18 Blood Pressure 137/86 127/73 Pulse Oximetry 97 97 BMI result Body Mass Index 27.4 Labs Results: 10/04/21 08:45 10/04/21 08:45 Medications Medications Current Medications Acetaminophen (Acetaminophen 325 Mg Tablet) 650 mg PO Q6H PRN PRN Reason: Headache/Pain Mild Scale (1-3) Last Admin: 10/06/21 13:12 Dose: 650 mg Documented by: Al Hydroxide/Mg Hydroxide (Magnesium Hydrox/Alum Hydrox 30 Ml Oral.Susp) 30 ml PO Q6H PRN PRN Reason: Heartburn/Nausea Albuterol Sulfate (Albuterol Sulfate 90 Mcg 8 Gm Inhaler) 2 puff INHALE RQ6H PRN PRN Reason: Shortness of Breath Atenolol (Atenolol 100 Mg Tablet) 100 mg PO DAILY [facility]; Protocol Last Admin: 10/06/21 08:42 Dose: 100 mg Documented by: Bacitracin (Bacitracin Oint 14 Gm Tube) 1 appl TOPICAL BID [facility]; Protocol Last Admin: 10/06/21 11:26 Dose: 1 appl Documented by: Carbamazepine (Carbamazepine Er 200 Mg Tab.Er.12h) 200 mg PO BID [facility] Last Admin: 10/06/21 08:43 Dose: 200 mg Documented by: Hydroxyzine HCl (Hydroxyzine Hcl 50 Mg Tablet) 50 mg PO Q6H PRN PRN Reason: Anxiety Last Admin: 10/06/21 05:50 Dose: 50 mg Documented by: Ibuprofen (Ibuprofen 600 Mg Tablet) 600 mg PO Q8H PRN PRN Reason: moderate pain Last Admin: 10/06/21 07:28 Dose: 600 mg Documented by: Lorazepam (Lorazepam 1 Mg Tablet) 1 mg PO Q4H PRN PRN Reason: anxiety/agitation Last Admin: 10/06/21 13:13 Dose: 1 mg Documented by: Magnesium Hydroxide (Milk Of Magnesia 30 Ml Oral.Susp) 30 ml PO DAILY PRN PRN Reason: Constipation Nicotine (Nicotine 21 Mg Patch.Td24) 21 mg TRANSDERMA DAILY [facility] Last Admin: 10/06/21 08:41 Dose: 21 mg Documented by: Nicotine Polacrilex (Nicotine Polacrilex 2 Mg Gum) 2 mg BUCCAL Q1H PRN PRN Reason: Nicotine Cravings Olanzapine (Olanzapine Odt 10 Mg Tab.Rapdis) 5 mg TRANSLINGU Q4H PRN PRN Reason: agitation Last Admin: 10/06/21 04:43 Dose: 5 mg Documented by: Olanzapine (Olanzapine Odt 10 Mg Tab.Rapdis) 10 mg TRANSLINGU BID [facility] Last Admin: 10/06/21 08:56 Dose: Not Given Documented by: Trazodone HCl (Trazodone Hcl 100 Mg Tablet) 100 mg PO BEDTIME PRN PRN Reason: Insomnia Last Admin: 10/05/21 21:59 Dose: 100 mg Documented by: Allergies Allergies Allergy/AdvReac Type Severity Reaction Status Date / Time Sulfa (Sulfonamide Allergy Unknown RASH Verified 10/03/21 06:12 Antibiotics) tomato [TOMATO] Allergy Unknown MIGRAINS Verified 10/03/21 06:13 Assessment & Plan Assessment & Plan (1) Bipolar I disorder with sisi: Status: Acute Code(s): F31.10 - Bipolar disorder, current episode manic without psychotic features, unspecified Plan started tegretol 200 BID 10/04. pt states he cannot take lithium or depakote. scheduled ativan DCed 10/05 at pt request. DC risperidone 1 BID at pt request 10/05 and start zyprexa 10 BID and 5 mg PRNs. 10/06/2021: Continue to encourage medication as per primary team's recommendations I spent minutes with the patient and/or on the patient floor today, greater than?50% of which was spent counseling/coordinating care. Reason for contiued inpatient stay Substantial Risk for: inability to function and rapid decompensation
[2021-10-06] MEDS: OLANZapine ODT 10 MG TAB.RAPDIS TRANSLINGU ×2 (20:49→23:18)
[2021-10-06] MEDS: Nicotine Polacrilex 2 MG GUM BUCCAL (21:02)
[2021-10-06 21:33] VITALS: BP 126/77; PULSE 70; RESP 18; TEMP 36.6; O2SAT 99
[2021-10-06] MEDS: traZODone HCL 100 MG TABLET PO (22:54)
[2021-10-07] MEDS: hydrOXYzine HCL 50 MG TABLET PO ×3 (00:19→16:01)
[2021-10-07] MEDS: LORazepam 1 MG TABLET PO ×4 (00:47→21:55)
[2021-10-07] MEDS: traZODone HCL 100 MG TABLET PO ×3 (00:47→21:55)
[2021-10-07 08:30] VITALS: BP 131/75; PULSE 80; RESP 16; TEMP 36.7; O2SAT 97
[2021-10-07] MEDS: Nicotine 21 MG PATCH.TD24 TRANSDERMA (08:34)
[2021-10-07] MEDS: OLANZapine ODT 10 MG TAB.RAPDIS TRANSLINGU (08:35)
[2021-10-07] MEDS: carBAMazepine ER 200 MG TAB.ER.12H PO ×2 (08:35→21:55)
[2021-10-07] MEDS: atenoloL 100 MG TABLET PO (08:35)
[2021-10-07] MEDS: Nicotine Polacrilex 2 MG GUM BUCCAL ×3 (08:58→17:26)
[2021-10-07] MEDS: Acetaminophen 325 MG TABLET 650 MG PO ×2 (09:14→16:01)
[2021-10-07] MEDS: Albuterol Sulfate 90 MCG 8 GM INHALER 2 PUFF INHALE (09:47)
[2021-10-07] MEDS: OLANZapine ODT 10 MG TAB.RAPDIS 5 MG TRANSLINGU ×2 (12:03→17:28)
[2021-10-07] MEDS: Ibuprofen 600 MG TABLET PO ×2 (12:07→21:55)
--- NOTE | 2021-10-07 12:25 | P.PNPSI_ITS ---
Subjective Subjective Date of Service: 10/07/21 Reason For Visit: psychosis Interim History: Met with patient. Discussed with nursing. Frusrtared and paranoid yesterday- calling police, security provided support, delusional and paranoid. Better med adherence. Sleep poor. Remains Hyper alevism. Paranoid and internally preoccupied. Was ambivalent around medications but open to ativan and trazodone being scheduled as he has been using as needed. Denies feeling depressed or suicidal. Medication Compliance: Yes Side effects from medications: No Attending Groups: No Review of Systems Acute medical concerns: No Review of Systems Review of Systems unremarkable Mental Status Exam Mental Status Exam Narrative: casually dressed. Fair hygiene. Intense affect at times and does appear to be internally preoccupied at times. Guarded. Denies depression. No SI. No HI. Hyper alevism. Does appear internally preoccupied. Insight judgment poor Diagnostics Vital Signs (24Hr): Vital Signs - 24 hr 10/06/21 21:33 10/07/21 08:30 Temperature 97.8 F 98.0 F Pulse Rate 70 80 Respiratory Rate 18 16 Blood Pressure 126/77 131/75 Pulse Oximetry 99 97 BMI result Body Mass Index 27.4 Labs Results: 10/04/21 08:45 10/04/21 08:45 Medications Medications Current Medications Acetaminophen (Acetaminophen 325 Mg Tablet) 650 mg PO Q6H PRN PRN Reason: Headache/Pain Mild Scale (1-3) Last Admin: 10/07/21 09:14 Dose: 650 mg Documented by: Al Hydroxide/Mg Hydroxide (Magnesium Hydrox/Alum Hydrox 30 Ml Oral.Susp) 30 ml PO Q6H PRN PRN Reason: Heartburn/Nausea Albuterol Sulfate (Albuterol Sulfate 90 Mcg 8 Gm Inhaler) 2 puff INHALE Q6H PRN PRN Reason: Shortness of Breath Last Admin: 10/07/21 09:47 Dose: 2 puff Documented by: Atenolol (Atenolol 100 Mg Tablet) 100 mg PO DAILY [facility]; Protocol Last Admin: 10/07/21 08:35 Dose: 100 mg Documented by: Bacitracin (Bacitracin Oint 14 Gm Tube) 1 appl TOPICAL BID [facility]; Protocol Last Admin: 10/07/21 06:47 Dose: Not Given Documented by: Carbamazepine (Carbamazepine Er 200 Mg Tab.Er.12h) 200 mg PO BID [facility] Last Admin: 10/07/21 08:35 Dose: 200 mg Documented by: Hydroxyzine HCl (Hydroxyzine Hcl 50 Mg Tablet) 50 mg PO Q6H PRN PRN Reason: Anxiety Last Admin: 10/07/21 08:35 Dose: 50 mg Documented by: Ibuprofen (Ibuprofen 600 Mg Tablet) 600 mg PO Q8H PRN PRN Reason: moderate pain Last Admin: 10/07/21 12:07 Dose: 600 mg Documented by: Lorazepam (Lorazepam 1 Mg Tablet) 1 mg PO Q4H PRN PRN Reason: anxiety/agitation Last Admin: 10/07/21 10:21 Dose: 1 mg Documented by: Magnesium Hydroxide (Milk Of Magnesia 30 Ml Oral.Susp) 30 ml PO DAILY PRN PRN Reason: Constipation Nicotine (Nicotine 21 Mg Patch.Td24) 21 mg TRANSDERMA DAILY [facility] Last Admin: 10/07/21 08:34 Dose: 21 mg Documented by: Nicotine Polacrilex (Nicotine Polacrilex 2 Mg Gum) 2 mg BUCCAL Q1H PRN PRN Reason: Nicotine Cravings Last Admin: 10/07/21 12:09 Dose: 2 mg Documented by: Olanzapine (Olanzapine Odt 10 Mg Tab.Rapdis) 5 mg TRANSLINGU Q4H PRN PRN Reason: agitation Last Admin: 10/07/21 12:03 Dose: 5 mg Documented by: Olanzapine (Olanzapine Odt 10 Mg Tab.Rapdis) 20 mg TRANSLINGU BEDTIME DEE DEE Olanzapine (Olanzapine Odt 10 Mg Tab.Rapdis) 10 mg TRANSLINGU DAILY [facility] Last Admin: 10/07/21 08:35 Dose: 10 mg Documented by: Trazodone HCl (Trazodone Hcl 100 Mg Tablet) 100 mg PO BEDTIME PRN PRN Reason: Insomnia Last Admin: 10/07/21 00:47 Dose: 100 mg Documented by: Allergies Allergies Allergy/AdvReac Type Severity Reaction Status Date / Time Sulfa (Sulfonamide Allergy Unknown RASH Verified 10/03/21 06:12 Antibiotics) tomato [TOMATO] Allergy Unknown MIGRAINS Verified 10/03/21 06:13 Assessment & Plan Assessment & Plan (1) Bipolar I disorder with sisi: Status: Acute Code(s): F31.10 - Bipolar disorder, current episode manic without psychotic features, unspecified Plan started tegretol 200 BID 10/04. pt states he cannot take lithium or depakote. scheduled ativan DCed 10/05 at pt request. DC risperidone 1 BID at pt request 10/05 and start zyprexa 10 BID and 5 mg PRNs. 10/07/2021: Increase olanzapine to 10 am and 20 hs. Schedule ativan and trazodone ie using prn consistently. I spent minutes with the patient and/or on the patient floor today, greater than?50% of which was spent counseling/coordinating care. Reason for contiued inpatient stay Substantial Risk for: inability to function
[2021-10-07] MEDS: Bacitracin Oint 14 GM TUBE 1 APPL TOPICAL (13:23)
[2021-10-07 18:00] VITALS: BP 130/74; PULSE 65; RESP 18; TEMP 36.7; O2SAT 97
[2021-10-07] MEDS: OLANZapine ODT 10 MG TAB.RAPDIS 20 MG TRANSLINGU (21:55)
[2021-10-08 07:54] VITALS: BP 115/62; PULSE 81; RESP 16; TEMP 36.6; O2SAT 97
[2021-10-08] MEDS: LORazepam 1 MG TABLET PO ×3 (08:04→20:24)
[2021-10-08] MEDS: atenoloL 100 MG TABLET PO (08:04)
[2021-10-08] MEDS: OLANZapine ODT 10 MG TAB.RAPDIS TRANSLINGU (08:05)
[2021-10-08] MEDS: carBAMazepine ER 200 MG TAB.ER.12H PO ×2 (08:05→09:49)
[2021-10-08] MEDS: Nicotine 21 MG PATCH.TD24 TRANSDERMA (08:06)
[2021-10-08] MEDS: Ibuprofen 600 MG TABLET PO (09:49)
[2021-10-08] MEDS: OLANZapine ODT 10 MG TAB.RAPDIS 5 MG TRANSLINGU ×2 (09:49→15:16)
[2021-10-08] MEDS: Nicotine Polacrilex 2 MG GUM BUCCAL ×3 (10:02→20:39)
[2021-10-08] MEDS: hydrOXYzine HCL 50 MG TABLET PO ×2 (10:02→18:06)
--- NOTE | 2021-10-08 10:30 | P.PNPSI_ITS ---
Subjective Subjective Date of Service: 10/08/21 Reason For Visit: psychosis Interim History: pt seen chatting with operations staff specialist security at RN station. amenable to interview. somewhat labile and disorganized. states he does not really wish to discharge and he has only bee saying he does out of fear. wants to stay for stabilization. agreeable to increase tegretol dosing to 400 BID. no other complaints or requests. per staff, alert, pacing, delusional. verbal altercations x2 with manic peer. hugging another, had to be reminded of boundarties. hyper- gnosticist, labile, tearful, agitated. Mental Status Exam Mental Status Exam Narrative: pt cooperative, pleasant. less pressured speech, wandering/disorganized thoughts. appropriately dressed and groomed. no PMA/PMR. affect full range, hyper-intense, mod-labile. mood anxious. no SI/HI/AVH expressed. Diagnostics Vital Signs (24Hr): Vital Signs - 24 hr 10/07/21 18:00 10/08/21 07:54 Temperature 98.0 F 98 F Pulse Rate 65 81 Respiratory Rate 18 16 Blood Pressure 130/74 115/62 Pulse Oximetry 97 97 BMI result Body Mass Index 27.4 Labs Results: 10/04/21 08:45 10/04/21 08:45 Medications Medications Current Medications Acetaminophen (Acetaminophen 325 Mg Tablet) 650 mg PO Q6H PRN PRN Reason: Headache/Pain Mild Scale (1-3) Last Admin: 10/07/21 16:01 Dose: 650 mg Documented by: Al Hydroxide/Mg Hydroxide (Magnesium Hydrox/Alum Hydrox 30 Ml Oral.Susp) 30 ml PO Q6H PRN PRN Reason: Heartburn/Nausea Albuterol Sulfate (Albuterol Sulfate 90 Mcg 8 Gm Inhaler) 2 puff INHALE Q6H PRN PRN Reason: Shortness of Breath Last Admin: 10/07/21 09:47 Dose: 2 puff Documented by: Atenolol (Atenolol 100 Mg Tablet) 100 mg PO DAILY [facility]; Protocol Last Admin: 10/08/21 08:04 Dose: 100 mg Documented by: Bacitracin (Bacitracin Oint 14 Gm Tube) 1 appl TOPICAL BID [facility]; Protocol Last Admin: 10/08/21 08:13 Dose: Not Given Documented by: Carbamazepine (Carbamazepine Er 200 Mg Tab.Er.12h) 400 mg PO BID DEE DEE Hydroxyzine HCl (Hydroxyzine Hcl 50 Mg Tablet) 50 mg PO Q6H PRN PRN Reason: Anxiety Last Admin: 10/08/21 10:02 Dose: 50 mg Documented by: Ibuprofen (Ibuprofen 600 Mg Tablet) 600 mg PO Q8H PRN PRN Reason: moderate pain Last Admin: 10/08/21 09:49 Dose: 600 mg Documented by: Lorazepam (Lorazepam 1 Mg Tablet) 1 mg PO Q4H PRN PRN Reason: anxiety/agitation Last Admin: 10/07/21 10:21 Dose: 1 mg Documented by: Lorazepam (Lorazepam 1 Mg Tablet) 1 mg PO TID [facility] Last Admin: 10/08/21 08:04 Dose: 1 mg Documented by: Magnesium Hydroxide (Milk Of Magnesia 30 Ml Oral.Susp) 30 ml PO DAILY PRN PRN Reason: Constipation Nicotine (Nicotine 21 Mg Patch.Td24) 21 mg TRANSDERMA DAILY [facility] Last Admin: 10/08/21 08:06 Dose: 21 mg Documented by: Nicotine Polacrilex (Nicotine Polacrilex 2 Mg Gum) 2 mg BUCCAL Q1H PRN PRN Reason: Nicotine Cravings Last Admin: 10/08/21 10:02 Dose: 2 mg Documented by: Olanzapine (Olanzapine Odt 10 Mg Tab.Rapdis) 5 mg TRANSLINGU Q4H PRN PRN Reason: agitation Last Admin: 10/08/21 09:49 Dose: 5 mg Documented by: Olanzapine (Olanzapine Odt 10 Mg Tab.Rapdis) 20 mg TRANSLINGU BEDTIME [facility] Last Admin: 10/07/21 21:55 Dose: 20 mg Documented by: Olanzapine (Olanzapine Odt 10 Mg Tab.Rapdis) 10 mg TRANSLINGU DAILY [facility] Last Admin: 10/08/21 08:05 Dose: 10 mg Documented by: Trazodone HCl (Trazodone Hcl 100 Mg Tablet) 100 mg PO BEDTIME PRN PRN Reason: Insomnia Last Admin: 10/07/21 21:55 Dose: 100 mg Documented by: Trazodone HCl (Trazodone Hcl 100 Mg Tablet) 100 mg PO BEDTIME [facility] Last Admin: 10/07/21 21:55 Dose: 100 mg Documented by: Allergies Allergies Allergy/AdvReac Type Severity Reaction Status Date / Time Sulfa (Sulfonamide Allergy Unknown RASH Verified 10/03/21 06:12 Antibiotics) tomato [TOMATO] Allergy Unknown MIGRAINS Verified 10/03/21 06:13 Assessment & Plan Assessment & Plan (1) Bipolar I disorder with sisi: Status: Acute Code(s): F31.10 - Bipolar disorder, current episode manic without psychotic features, unspecified Plan started tegretol 200 BID 10/04. pt states he cannot take lithium or depakote. scheduled ativan DCed 10/05 at pt request. DC risperidone 1 BID at pt request 10/05 and start zyprexa 10 BID and 5 mg PRNs. 10/07/2021: Increase olanzapine to 10 am and 20 hs. Schedule ativan and trazodone ie using prn consistently. 10/08: increase tegretol from 200 BID to 400 BID. remains labile and disorganized. I spent __25____ minutes with the patient and/or on the patient floor today, greater than?50% of which was spent counseling/coordinating care. Reason for contiued inpatient stay Substantial Risk for: inability to function and rapid decompensation
[2021-10-08] MEDS: Acetaminophen 325 MG TABLET 650 MG PO ×2 (12:53→22:00)
[2021-10-08] MEDS: Albuterol Sulfate 90 MCG 8 GM INHALER 2 PUFF INHALE (15:16)
[2021-10-08 18:00] VITALS: BP 125/72; PULSE 77; RESP 18; TEMP 36.6; O2SAT 98
[2021-10-08] MEDS: Bacitracin Oint 14 GM TUBE 1 APPL TOPICAL (20:24)
[2021-10-08] MEDS: OLANZapine ODT 10 MG TAB.RAPDIS 20 MG TRANSLINGU (20:24)
[2021-10-08] MEDS: carBAMazepine ER 200 MG TAB.ER.12H 400 MG PO (20:24)
[2021-10-08] MEDS: traZODone HCL 100 MG TABLET PO (21:59)
[2021-10-09] MEDS: carBAMazepine ER 200 MG TAB.ER.12H 400 MG PO (08:37)
[2021-10-09] MEDS: OLANZapine ODT 10 MG TAB.RAPDIS TRANSLINGU (08:37)
[2021-10-09] MEDS: atenoloL 100 MG TABLET PO (08:37)
[2021-10-09] MEDS: Nicotine 21 MG PATCH.TD24 TRANSDERMA (08:41)
[2021-10-09 08:54] VITALS: BP 112/67; PULSE 66; RESP 16; TEMP 36.6; O2SAT 98
[2021-10-09] MEDS: Acetaminophen 325 MG TABLET 650 MG PO (09:18)
[2021-10-09] MEDS: LORazepam 1 MG TABLET PO (09:18)
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
== END 2021-10-09 11:55 | disposition home or self-care (01) | DRG 753 ==
LOC: HO.ED 10-03 15:52 → HO.PADLT16 10-03 23:44
PROVIDERS: Nurse Practitioner Family; Admitting Provider Social Worker; Emergency Provider Internal Medicine; Visit Provider Psychiatry & Neurology Psychiatry
DX: F31.10 Bipolar disorder, current episode manic without psychotic features, unspecified (principal); R45.851 Suicidal ideations; F17.210 Nicotine dependence, cigarettes, uncomplicated; Z59.02 Unsheltered homelessness; Z71.6 Tobacco abuse counseling; Z88.2 Allergy status to sulfonamides; Z79.899 Other long term (current) drug therapy
CPT/HCPCS: 36415; 80053; 80061; 80143; 80179; 80307; 81003; 82077; 82607; 82746; 83036; 84443; 85025; 87635; 90715; 93005; 99285; J1200; J2060

== ENCOUNTER 2021-10-09 20:21 | Emergency (ER) | payer OTHER, SELFPAY ==
[2021-10-09 20:34] VITALS: BP 118/68; PULSE 100; RESP 18; TEMP 36.9; O2SAT 96; BMI 26.6
== END 2021-10-09 21:11 | disposition left against medical advice (07) ==
PROVIDERS: Emergency Provider Emergency Medicine
DX: Z76.0 Encounter for issue of repeat prescription (principal)
CPT/HCPCS: 99282

== ENCOUNTER 2021-10-10 00:24 | Inpatient (IN) | payer OTHER, SELFPAY ==
--- NOTE | ~2021-10-10 | CT_ITS ---
EXAMINATION: CT HEAD WITHOUT CONTRAST CLINICAL INFORMATION: Psychosis COMPARISON: 10/15/2017 TECHNIQUE: Contiguous axial imaging was performed from the skull base to vertex without intravenous administration of contrast. This CT examination was performed using dose optimization techniques as appropriate, variously including the following: *Automated exposure control *Adjustment of mA and/or kV according to patient size (this includes techniques or standardized protocols for targeted exams where dose is matched to indication/reason for exam; i.e. extremities or head) *Use of iterative reconstruction technique DLP: 687 mGy-cm FINDINGS: There is no evidence of acute intracranial hemorrhage or territorial infarction. No abnormal mass effect or midline shift is seen. Ortiz to white matter differentiation is well preserved. No extra-axial fluid collections are identified. The ventricles are normal in size. There is no abnormal attenuation within the brain parenchyma. The osseous structures and soft tissues are normal. The mastoid air cells and visualized portions of the paranasal sinuses are well aerated. CT/CT head/brain wo con IMPRESSION: No acute intracranial pathology.
[2021-10-10 00:44] VITALS: BP 100/69; PULSE 78; PULSE 79; RESP 16; TEMP 36.6; O2SAT 99; BMI 25.8
--- NOTE | 2021-10-10 00:51 | ED_ITS ---
HPI - Overdose General Chief Complaint: Overdose Stated Complaint: overdose Time Seen by Provider: 10/10/21 00:51 Source: patient Mode of arrival: EMS History of Present Illness HPI Narrative: 31-year-old male who is brought in by EMS when they were called for ?unresponsive sign on the sidewalk?. EMS states the patient had pinpoint pupils and received 4 mg of Narcan intranasal. Patient arrives and is answering questions but is still somewhat sleepy. Collateral information from the care team is that patient was discharged today and will likely need to be readmitted after a re-evaluation. Related Data Previous Rx's Medication Instructions Recorded albuterol sulfate 90 mcg/actuation 2 puff INHALATION Q4H PRN 30 Days 10/09/21 aerosol inhaler (ProAir HFA) #1 inhaler atenolol 100 mg tablet 100 mg PO DAILY 30 Days #30 tab 10/09/21 carbamazepine 200 mg 400 mg PO BID 30 Days #120 tab 10/09/21 tablet,extended release,12 hr nicotine (polacrilex) 2 mg gum 4 mg BUCCAL Q1H PRN 30 Days #180 ea 10/09/21 nicotine 21 mg/24 hr daily 21 mg TRANSDERMAL DAILY 28 Days 10/09/21 transdermal patch #28 ea olanzapine 10 mg tablet (Zyprexa) 10 mg PO DAILY 30 Days #30 tab 10/09/21 olanzapine 20 mg tablet (Zyprexa) 20 mg PO BEDTIME 30 Days #30 tab 10/09/21 trazodone 100 mg tablet 100 mg PO BEDTIME 30 Days #30 tab 10/09/21 Allergies Allergy/AdvReac Type Severity Reaction Status Date / Time Sulfa (Sulfonamide Allergy Unknown RASH Verified 10/09/21 20:33 Antibiotics) tomato [TOMATO] Allergy Unknown MIGRAINS Verified 10/09/21 20:33 Review of Systems Review of Systems: Pertinent positives and negatives as stated in HPI. PENDING SALE TO [facility] Past Medical History Source: nursing notes reviewed Social History Social History Household Members: None Housing: Homeless Do you presently have visiting nurse or other home services: No Patient Tobacco Use Status: Current everyday Tobacco user Tobacco use type: Cigarette Cigarette Packs Per Day: 0.5 Cigarettes Per Day: 10.0 e-Cigarette/Vaping Use: Never Used Second Hand Smoke Exposure: Yes Substance Use Type: Marijuana Advance Directives: No service: No Sexual orientation: Did not discuss. Physical Exam Vital Signs: Vital Signs: Last Vital Signs Temp 97.8 F 10/10/21 00:44 Pulse 79 10/10/21 00:44 Resp 16 10/10/21 00:44 BP 100/69 10/10/21 00:44 Pulse Ox 99 10/10/21 00:44 BMI result Body Mass Index 25.8 VITAL SIGNS: Reviewed. GENERAL: Well developed, well nourished, in no acute distress. HEAD: Normocephalic/atraumatic EYES: PERRLA, EOMI EARS: Ext canals without abnormality OROPHARYNX: no oral lesions noted, posterior pharynx clear LUNGS: Normal breath sounds. No adventitious sounds or accessory muscle use. SpO2<99> CARDIOVASCULAR: Regular rate and rhythm without noted murmurs ABDOMEN: Soft, non-tender, non-distended with bowel sounds. MUSCULOSKELETAL: No tenderness, deformities, or effusions noted on gross inspection. EXTREMITIES: No cyanosis, clubbing or edema. SKIN: Inspection of the skin reveals no rashes NEUROLOGIC: Easily aroused and oriented x 3. Strength and sensation to light touch were grossly intact x 4. Course Course Course Narrative: 31-year-old male with history and clinical presentation consistent with substance use and will keep under physician observation with valuation by the care team in the morning. Reevaluation(s) Reevaluation #1: Patient placed in physician observation because the patient needed more time for recovery from substance and evaluation by the care team. At the time observation was started the patient's vital signs were stable, patient is alert and oriented, neuro: Nonfocal, CV RRR, lungs clear Time: 02:30 MDM - Overdose Lab Data Labs: Lab Results 10/10/21 Range/Units 02:22 COVID-19 ([facility]) Negative (Negative) COVID-19 Clin Com See Note Discharge Plan Discharge Clinical Impression: Drug overdose, Bipolar I disorder with sisi Patient Disposition: Still a Patient Prescriptions: No Action nicotine (polacrilex) 2 mg Gum 4 mg buccal Q1H PRN (Reason: Nicotine Cravings) 30 Days Qty: 180 0RF trazodone 100 mg Tablet 100 mg PO BEDTIME 30 Days Qty: 30 0RF carbamazepine 200 mg Tablet Extended Release 12 Hr 400 mg PO BID 30 Days Qty: 120 0RF nicotine 21 mg/24 hr Patch 24 Hour 21 mg transdermal DAILY 28 Days Qty: 28 0RF olanzapine [Zyprexa] 20 mg tablet 20 mg PO BEDTIME 30 Days Qty: 30 0RF olanzapine [Zyprexa] 10 mg tablet 10 mg PO DAILY 30 Days Qty: 30 0RF atenolol 100 mg tablet 100 mg PO DAILY 30 Days Qty: 30 0RF albuterol sulfate [ProAir HFA] 90 mcg/actuation HFA aerosol inhaler 2 puff inhalation Q4H PRN (Reason: wheezing) 30 Days Qty: 1 0RF
[2021-10-10] MEDS: Naloxone HCl Nasal TAKE HOME 4 MG SPRAY NOSTRILALT (02:24)
[2021-10-10 02:41] LABS: COVID-19 Test Negative (Negative)
[2021-10-10 06:14] VITALS: BP 132/76; PULSE 66; RESP 16; O2SAT 99
--- NOTE | 2021-10-10 06:15 | PC.NURSE ---
I assumed nursing care of Nnamdi upon his arrival to the ED via EMS s/p unresponsiveness with Narcan administration and an increase in LOC. Since he arrived Nnamdi has been sleeping. he wakes to verbal stimuli. His respirations have remained non-labored, RR WNL, no cyanosis, room air sat's 95% or better. We have been wathcing Nnamdi throughout the night and will continue to do so until discharge.
--- NOTE | 2021-10-10 06:53 | MHC.CARE ---
[facility] smart sheet submitted
[2021-10-10 06:57] LABS: Amphetamine Screen Urine Not Detected (Not Detect); Barbiturates, Urine Not Detected (Not Detect); Benzodiazepines Screen Urine Not Detected (Not Detect); Cannabinoid Screen Urine POSITIVE (Not Detect); Cocaine Screen Urine Not Detected (Not Detect); Fentanyl, urine Not Detected (Not Detect); Opiate Screen Urine Not Detected (Not Detect); Phencyclidine Screen Urine Not Detected (Not Detect)
[2021-10-10 10:00] VITALS: RESP 18
[2021-10-10 10:00] LABS: MANUAL DIFF FLAG NO
[2021-10-10 10:04] LABS: Basophils Percent Auto 0.3 % (0-2); Eosinophils Absolute Auto 0.1 X10*3/uL (0.0-0.4); Eosinophils Percent Auto 1.5 % (0-4); Hematocrit 45.1 % (42.0-52.0); Hemoglobin 15.5 g/dl (14.0-18.0); Imm Gran Abs Auto 0.03 X10*3/uL (0.00-0.03); Imm Gran Pct Auto 0.3 % (0.0-0.4); Lymphocytes Percent Auto 21.2 % (20-40); Mean Corpuscular HGB Conc 34.4 g/dl (31.0-36.0); Mean Corpuscular Hemoglobin 31.6 pg (27.0-33.0); Monocytes Absolute Auto 0.7 X10*3/uL (0.1-1.2); Monocytes Percent Auto 6.9 % (2-11); Neutrophils Absolute Auto 6.7 x10*3/uL (2.0-8.3); Neutrophils Percent Auto 69.8 % (45-73); Platelet Count 277 X10*3/uL (160-400); White Blood Count 9.5 X10*3/uL (4.8-10.8)
[2021-10-10 10:20] LABS: Alanine Aminotransferase 27 U/L (0-40); Albumin Level 4.3 g/dL (3.5-5.0); Alkaline Phosphatase 79 U/L (39-117); Anion Gap 14 (12-20); Aspartate Amino Transferase 20 U/L (5-37); Bilirubin Direct < 0.2 mg/dL (0.0-0.5); Bilirubin Total 0.3 mg/dL (0.0-1.0); Blood Urea Nitrogen 19 mg/dL (9-16); Calcium 9.3 mg/dL (8.4-10.2); Carbon Dioxide 22 mmol/L (22-29); Chloride 108 mmol/L (96-108); Creatinine Clr Calc Pharmacy 96.7; Estimated Glomerular Filt Rate > 60; Glucose Random 151 mg/dL (60-115); Sodium 140 mmol/L (135-145)
--- NOTE | 2021-10-10 13:10 | PHA.MEDREC ---
Pharmacy Consult ? Medication Reconciliation Pharmacy has completed the medication reconciliation. Pt discharged yesterday, medications from discharge summary. Whit RodriguezD
[2021-10-10] MEDS: OLANZapine 10 MG TABLET PO (14:07)
[2021-10-10] MEDS: Nicotine 21 MG PATCH.TD24 TRANSDERMA (14:07)
--- NOTE | 2021-10-10 15:01 | ECG_ITS ---
Test Reason : MED CLEAREANCE Blood Pressure : / mmHG Vent. Rate : 068 BPM Atrial Rate : 068 BPM P-R Int : 152 ms QRS Dur : 092 ms QT Int : 376 ms P-R-T Axes : 059 058 042 degrees QTc Int : 399 ms Normal sinus rhythm Normal ECG When compared with ECG of 03-OCT-2021 23:45, No significant change was found Referred By: Linda Martin Electronically Signed By:LLUVIA MCKINNEY MD
[2021-10-10 15:55] LABS: Carbamazepine Tegretol 6.4 mcg/mL (5.0-12.0)
[2021-10-10] MEDS: OLANZapine ODT 10 MG TAB.RAPDIS 5 MG TRANSLINGU (18:59)
[2021-10-10] MEDS: hydrOXYzine HCL 50 MG TABLET PO (19:00)
--- NOTE | 2021-10-10 19:03 | PC.NURSE ---
Nnamdi Dawkins is readmitted to M3 today on CV from [facility] [place] pod for exacerbation of psychosis. He was discharged from yesterday on a 3 day notice. He reports that he went to [facility] to picker packer his prescriptions. He was told his prescriptions were transferred to [facility]. When [facility] arrived at [facility] they told him they only had 3 scripts and the rest must be at [facility] In fact, [facility] only had three of his meds in stock and the rest were on order. Patient described walking back and forth between pharmacies 4 times (no cell phone) trying to get his prescriptions filled.He said that [facility] closed the gate on him and then he remembers beginning to panic. He bought 2 nips at the [employer] store next door. He believes he had a panic attack and remembers nothing until he was in the POD. Per Crisis Eval patient was found unconscious on the sidewalk. He was Narcan'd and brought to ED. [facility] and both confirm patient's story. On admission Ayaz is calm. He has asked for a room change and used a racial slur regarding his roommate. He displays paranoia, hyperreligiosity and delusions. He denies ideation, plan or intent to harm self or others. He denies current physical complaint.
[2021-10-10 20:40] VITALS: BP 126/79; PULSE 82; RESP 18; TEMP 36.4; O2SAT 99
[2021-10-10] MEDS: carBAMazepine ER 200 MG TAB.ER.12H 400 MG PO (20:40)
[2021-10-10] MEDS: OLANZapine 10 MG TABLET 20 MG PO (20:41)
[2021-10-10] MEDS: traZODone HCL 100 MG TABLET PO (20:41)
[2021-10-11] MEDS: Nicotine Polacrilex 2 MG GUM 4 MG BUCCAL ×3 (06:39→16:37)
[2021-10-11 07:00] VITALS: BMI 26.9
[2021-10-11] MEDS: Nicotine 21 MG PATCH.TD24 TRANSDERMA (08:16)
[2021-10-11] MEDS: atenoloL 100 MG TABLET PO (08:17)
[2021-10-11] MEDS: carBAMazepine ER 200 MG TAB.ER.12H 400 MG PO ×2 (08:17→21:47)
[2021-10-11] MEDS: OLANZapine 10 MG TABLET PO (08:17)
[2021-10-11] MEDS: hydrOXYzine HCL 50 MG TABLET PO ×2 (08:57→17:27)
[2021-10-11 09:00] VITALS: BP 118/71; PULSE 91; RESP 16; TEMP 36.6; O2SAT 97
[2021-10-11] MEDS: Acetaminophen 325 MG TABLET 650 MG PO (09:39)
[2021-10-11] MEDS: OLANZapine ODT 10 MG TAB.RAPDIS 5 MG TRANSLINGU (11:19)
[2021-10-11] MEDS: LORazepam 1 MG TABLET PO (11:21)
[2021-10-11] MEDS: Ibuprofen 600 MG TABLET PO (12:58)
--- NOTE | 2021-10-11 14:46 | P.HPPS_ITS ---
HPI Date of Service: 10/11/21 Chief Complaint: Psychosis HPI Subjective Notes: Thomas Warning Narrative: pt left the hospital 2 days ago, had difficulty obtaining his prescriptions from the pharmacy, coped by buying some nips and magnesium supplement, then was found lying on the sidewalk in front of the pharmacy with no recollection of what had happened to get him there. meds restarted at admission to the hospital. pt appears to be in roughly the same clinical state as he was at discharge. Past Psychiatric History: h/o numerous psych hosps including one on M[facility] in 2011, M3 until 2 days [facility] (pt estimates 9 or 10 admissions). Dx of bipolar D/O. h/o care through [facility]. h/o SI and SA via overdose. h/o superficial cutting and punching lewis during adolescence. Medical Evaluation Reviewed: Yes [facility] Family History: maternal side: anxiety, depression, alcohol dependence paternal side: schizoaffective disorder Social History: pt has one older brother and a younger brother and younger sister. all children have h/o having been removed from home by DCF at some point and having lived in foster care. relationship with family members described as strained. 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 h/o CSS/TSS sober living programs. he states he has not used barbiturates for 6 years and benzos or opioids for 4 years. he states he drank alcohol 1 day only about 2 days ago as well as the day [facility], but does not drink regularly. he reports regular use of cannabis, and his tox screen was positive for cannabis only. Trauma History: none noted Diagnostics Vital Signs (24Hr): Vital Signs - 24 hr 10/10/21 20:40 10/11/21 09:00 Temperature 97.6 F 97.8 F Pulse Rate 82 91 Respiratory Rate 18 16 Blood Pressure 126/79 118/71 Pulse Oximetry 99 97 BMI result Body Mass Index 25.8 Labs Results: 10/10/21 09:53 10/10/21 09:53 Labs: Laboratory Results - last 48 hr 10/10/21 10/10/21 10/10/21 02:22 06:37 09:53 WBC 9.5 RBC 4.90 Hgb 15.5 Hct 45.1 MCV 92.0 MCH 31.6 MCHC 34.4 RDW 13.0 Plt Count 277 MPV 11.0 Immature Gran % (Auto) 0.3 Neut % (Auto) 69.8 Lymph % (Auto) 21.2 [place]ac[place] % (Auto) 6.9 Eos % (Auto) 1.5 Baso % (Auto) 0.3 Lymph # (Auto) 2.0 [place] # (Auto) 0.7 Eos # (Auto) 0.1 Baso # (Auto) 0.0 Abs Immat Gran (auto) 0.03 Absolute Neuts (auto) 6.7 Absolute Nucleated RBC 0.000 Nucleated RBC % (auto) 0.0 Sodium Potassium Chloride Carbon Dioxide Anion Gap BUN Creatinine Estim Creat Clear Calc Estimated GFR Random Glucose Calcium Total Bilirubin Direct Bilirubin AST ALT Alkaline Phosphatase Total Protein Albumin Urine Opiates Screen Not Detected Urine Fentanyl Screen Not Detected Ur Barbiturates Screen Not Detected Carbamazepine Ur Phencyclidine Scrn Not Detected Ur Amphetamines Screen Not Detected U Benzodiazepines Scrn Not Detected Urine Cocaine Screen Not Detected U Marijuana (THC) Screen POSITIVE H COVID-19 ([facility]) Negative COVID-19 Clin Com See Note 10/10/21 10/10/21 09:53 15:23 WBC RBC Hgb Hct MCV MCH MCHC RDW Plt Count MPV Immature Gran % (Auto) Neut % (Auto) Lymph % (Auto) [place] % (Auto) Eos % (Auto) Baso % (Auto) Lymph # (Auto) [place] # (Auto) Eos # (Auto) Baso # (Auto) Abs Immat Gran (auto) Absolute Neuts (auto) Absolute Nucleated RBC Nucleated RBC % (auto) Sodium 140 Potassium 4.0 Chloride 108 Carbon Dioxide 22 Anion Gap 14 BUN 19 H Creatinine 1.08 Estim Creat Clear Calc 96.7 Estimated GFR > 60 Random Glucose 151 H Calcium 9.3 Total Bilirubin 0.3 Direct Bilirubin < 0.2 AST 20 D ALT 27 Alkaline Phosphatase 79 Total Protein 7.0 Albumin 4.3 Urine Opiates Screen Urine Fentanyl Screen Ur Barbiturates Screen Carbamazepine 6.4 Ur Phencyclidine Scrn Ur Amphetamines Screen U Benzodiazepines Scrn Urine Cocaine Screen U Marijuana (THC) Screen COVID-19 ([facility]) COVID-19 Clin Com Imaging Radiology Impressions: ITS Impressions Head CT 10/10/21 15:55 IMPRESSION: No acute intracranial pathology. Meds/Allergies Meds Home Medications Acetaminophen (Acetaminophen 325 Mg Tablet) 650 mg PO Q6H PRN PRN Reason: Headache/Pain Mild Scale (1-3) Last Admin: 10/11/21 09:39 Dose: 650 mg Documented by: Al Hydroxide/Mg Hydroxide (Magnesium Hydrox/Alum Hydrox 30 Ml Oral.Susp) 30 ml PO Q6H PRN PRN Reason: Heartburn/Nausea Albuterol Sulfate (Albuterol Sulfate 90 Mcg 8 Gm Inhaler) 2 puff INHALE Q4H PRN PRN Reason: wheezing Atenolol (Atenolol 100 Mg Tablet) 100 mg PO DAILY [facility]; Protocol Last Admin: 10/11/21 08:17 Dose: 100 mg Documented by: Carbamazepine (Carbamazepine Er 200 Mg Tab.Er.12h) 400 mg PO BID [facility] Last Admin: 10/11/21 08:17 Dose: 400 mg Documented by: Hydroxyzine HCl (Hydroxyzine Hcl 50 Mg Tablet) 50 mg PO Q6H PRN PRN Reason: Anxiety Last Admin: 10/11/21 08:57 Dose: 50 mg Documented by: Magnesium Hydroxide (Milk Of Magnesia 30 Ml Oral.Susp) 30 ml PO DAILY PRN PRN Reason: Constipation Nicotine (Nicotine 21 Mg Patch.Td24) 21 mg TRANSDERMA DAILY [facility] Last Admin: 10/11/21 08:16 Dose: 21 mg Documented by: Nicotine Polacrilex (Nicotine Polacrilex 2 Mg Gum) 4 mg BUCCAL Q1H PRN PRN Reason: Nicotine Cravings Last Admin: 10/11/21 11:05 Dose: 4 mg Documented by: Olanzapine (Olanzapine 10 Mg Tablet) 10 mg PO DAILY [facility] Last Admin: 10/11/21 08:17 Dose: 10 mg Documented by: Olanzapine (Olanzapine 10 Mg Tablet) 20 mg PO BEDTIME [facility] Last Admin: 10/10/21 20:41 Dose: 20 mg Documented by: Olanzapine (Olanzapine Odt 10 Mg Tab.Rapdis) 5 mg TRANSLINGU DAILY PRN PRN Reason: Psychosis Last Admin: 10/11/21 11:19 Dose: 5 mg Documented by: Trazodone HCl (Trazodone Hcl 100 Mg Tablet) 100 mg PO BEDTIME [facility] Last Admin: 10/10/21 20:41 Dose: 100 mg Documented by: Trazodone HCl (Trazodone Hcl 50 Mg Tablet) 50 mg PO BEDTIME PRN PRN Reason: Insomnia Allergies Allergies Allergy/AdvReac Type Severity Reaction Status Date / Time Sulfa (Sulfonamide Allergy Unknown RASH Verified 10/09/21 20:33 Antibiotics) tomato [TOMATO] Allergy Unknown MIGRAINS Verified 10/09/21 20:33 Mental Status Exam Mental Status Exam Narrative: pt cooperative, pleasant. non-pressured speech, fairly organized thoughts. appropriately dressed and groomed. no PMA/PMR. affect constricted, normo- intense, non-labile. mood not assessed. no SI/HI/AVH expressed. Assessment & Plan Assessment & Plan (1) Bipolar I disorder with sisi: Status: Acute Code(s): F31.10 - Bipolar disorder, current episode manic without psychotic features, unspecified Plan started tegretol 200 BID 10/04.? pt states he cannot take lithium or depakote. scheduled ativan DCed 10/05 at pt request. DCed risperidone 1 BID at pt request 10/05 and started zyprexa 10 BID and 5 mg PRNs. 10/07/2021: Increased olanzapine to 10 am and 20 hs. 10/08: increased tegretol from 200 BID to 400 BID.? remains labile and disorganized. 10/11: meds restated/continued. observe for stabilization. Patient educated on: diagnosis and medication risk/benefits Reason for continued inpatient stay Substantial Risk for: harm to self, inability to function and rapid decompensation
[2021-10-11] MEDS: OLANZapine 10 MG TABLET 20 MG PO (21:46)
[2021-10-11 21:47] VITALS: BP 105/57; PULSE 85; RESP 18; TEMP 36.7; O2SAT 97
[2021-10-11] MEDS: traZODone HCL 50 MG TABLET PO (21:47)
[2021-10-11] MEDS: traZODone HCL 100 MG TABLET PO (21:47)
[2021-10-11] MEDS: Albuterol Sulfate 90 MCG 8 GM INHALER 2 PUFF INHALE (22:26)
[2021-10-12] MEDS: Nicotine Polacrilex 2 MG GUM 4 MG BUCCAL ×2 (03:36→10:33)
[2021-10-12 08:11] VITALS: BP 130/69; PULSE 79; RESP 16; O2SAT 97
[2021-10-12] MEDS: carBAMazepine ER 200 MG TAB.ER.12H 400 MG PO ×2 (08:16→20:26)
[2021-10-12] MEDS: OLANZapine 10 MG TABLET PO (08:18)
[2021-10-12] MEDS: atenoloL 100 MG TABLET PO (08:19)
[2021-10-12] MEDS: Nicotine 21 MG PATCH.TD24 TRANSDERMA (09:05)
--- NOTE | 2021-10-12 12:07 | HO.PSYCHPN ---
Subjective Subjective Date of Service: 10/12/21 Reason For Visit: Psychosis Interim History: pt more calm and less labile than in recent memory. sits through interview, no crying or intense facial expressions. reports he is feeling less sedated, more settled, less labile. states he is getting feedback from brother and female friend on the phone to the same effect. per staff, disruptive, irritable early on in the day yesterday. eating and sleeping well. attended art therapy. up at 0250, satanists are up at this hour. i'm beating them to it. Mental Status Exam Mental Status Exam Narrative: pt cooperative, pleasant. non-pressured speech, organized thoughts. appropriately dressed and groomed. no PMA/PMR. affect constricted, normo-intense, non-labile. mood not assessed. no SI/HI/AVH expressed. Diagnostics Vital Signs (24Hr): Vital Signs - 24 hr 10/11/21 21:47 10/12/21 08:11 Temperature 98.0 F Pulse Rate 85 79 Respiratory Rate 18 16 Blood Pressure 105/57 L 130/69 Pulse Oximetry 97 97 BMI result Body Mass Index 26.9 Labs Results: 10/10/21 09:53 10/10/21 09:53 Labs: Laboratory Results - last 48 hr 10/10/21 15:23 Carbamazepine 6.4 Imaging Radiology Impressions: ITS Impressions Head CT 10/10/21 15:55 IMPRESSION: No acute intracranial pathology. Medications Medications Current Medications Acetaminophen (Acetaminophen 325 Mg Tablet) 650 mg PO Q6H PRN PRN Reason: Headache/Pain Mild Scale (1-3) Last Admin: 10/11/21 09:39 Dose: 650 mg Documented by: Al Hydroxide/Mg Hydroxide (Magnesium Hydrox/Alum Hydrox 30 Ml Oral.Susp) 30 ml PO Q6H PRN PRN Reason: Heartburn/Nausea Albuterol Sulfate (Albuterol Sulfate 90 Mcg 8 Gm Inhaler) 2 puff INHALE Q4H PRN PRN Reason: wheezing Last Admin: 10/11/21 22:26 Dose: 2 puff Documented by: Atenolol (Atenolol 100 Mg Tablet) 100 mg PO DAILY [facility]EE [facility]EE; Protocol Last Admin: 10/12/21 08:19 Dose: 100 mg Documented by: Carbamazepine (Carbamazepine Er 200 Mg Tab.Er.12h) 400 mg PO BID DEE DEE Last Admin: 10/12/21 08:16 Dose: 400 mg Documented by: Hydroxyzine HCl (Hydroxyzine Hcl 50 Mg Tablet) 50 mg PO Q6H PRN PRN Reason: Anxiety Last Admin: 10/11/21 17:27 Dose: 50 mg Documented by: Magnesium Hydroxide (Milk Of Magnesia 30 Ml Oral.Susp) 30 ml PO DAILY PRN PRN Reason: Constipation Nicotine (Nicotine 21 Mg Patch.Td24) 21 mg TRANSDERMA DAILY [facility] Last Admin: 10/12/21 09:05 Dose: 21 mg Documented by: Nicotine Polacrilex (Nicotine Polacrilex 2 Mg Gum) 4 mg BUCCAL Q1H PRN PRN Reason: Nicotine Cravings Last Admin: 10/12/21 10:33 Dose: 4 mg Documented by: Olanzapine (Olanzapine 10 Mg Tablet) 10 mg PO DAILY [facility] Last Admin: 10/12/21 08:18 Dose: 10 mg Documented by: Olanzapine (Olanzapine 10 Mg Tablet) 20 mg PO BEDTIME [facility] Last Admin: 10/11/21 21:46 Dose: 20 mg Documented by: Olanzapine (Olanzapine Odt 10 Mg Tab.Rapdis) 5 mg TRANSLINGU DAILY PRN PRN Reason: Psychosis Last Admin: 10/11/21 11:19 Dose: 5 mg Documented by: Trazodone HCl (Trazodone Hcl 100 Mg Tablet) 100 mg PO BEDTIME [facility] Last Admin: 10/11/21 21:47 Dose: 100 mg Documented by: Trazodone HCl (Trazodone Hcl 50 Mg Tablet) 50 mg PO BEDTIME PRN PRN Reason: Insomnia Last Admin: 10/11/21 21:47 Dose: 50 mg Documented by: Allergies Allergies Allergy/AdvReac Type Severity Reaction Status Date / Time Sulfa (Sulfonamide Allergy Unknown RASH Verified 10/09/21 20:33 Antibiotics) tomato [TOMATO] Allergy Unknown MIGRAINS Verified 10/09/21 20:33 Assessment & Plan Assessment & Plan (1) Bipolar I disorder with sisi: Status: Acute Code(s): F31.10 - Bipolar disorder, current episode manic without psychotic features, unspecified Plan started tegretol 200 BID 10/04.? pt states he cannot take lithium or depakote. scheduled ativan DCed 10/05 at pt request. DCed risperidone 1 BID at pt request 10/05 and started zyprexa 10 BID and 5 mg PRNs. 10/07/2021: Increased olanzapine to 10 am and 20 hs. 10/08: increased tegretol from 200 BID to 400 BID.? remains labile and disorganized. discharged 10/09 on 30-day notice, readmitted 10/10 after being found unconscious on sidewalk in front of pharmacy where he had been unable to get his medications. 10/11: meds restated/continued. observe for stabilization. 10/12: appears more settled, less labile. I spent ___25___ minutes with the patient and/or on the patient floor today, greater than?50% of which was spent counseling/coordinating care. Reason for contiued inpatient stay Substantial Risk for: inability to function and rapid decompensation
[2021-10-12] MEDS: hydrOXYzine HCL 50 MG TABLET PO ×2 (12:25→23:43)
[2021-10-12] MEDS: Acetaminophen 325 MG TABLET 650 MG PO ×2 (12:25→23:43)
[2021-10-12] MEDS: OLANZapine ODT 10 MG TAB.RAPDIS 5 MG TRANSLINGU (13:30)
[2021-10-12] MEDS: Ibuprofen 600 MG TABLET PO (16:03)
[2021-10-12 18:00] VITALS: BP 136/82; PULSE 81; RESP 16; TEMP 36.7; O2SAT 96
[2021-10-12] MEDS: OLANZapine 10 MG TABLET 20 MG PO (20:26)
[2021-10-12] MEDS: traZODone HCL 100 MG TABLET PO (20:27)
[2021-10-12] MEDS: traZODone HCL 50 MG TABLET PO (20:27)
[2021-10-13] MEDS: Nicotine Polacrilex 2 MG GUM 4 MG BUCCAL ×2 (04:38→19:31)
[2021-10-13 08:22] VITALS: BP 117/75; PULSE 85; TEMP 36.6; O2SAT 97
[2021-10-13] MEDS: OLANZapine 10 MG TABLET PO (08:25)
[2021-10-13] MEDS: carBAMazepine ER 200 MG TAB.ER.12H 400 MG PO ×2 (08:25→20:21)
[2021-10-13] MEDS: Nicotine 21 MG PATCH.TD24 TRANSDERMA (08:26)
[2021-10-13] MEDS: atenoloL 100 MG TABLET PO (08:26)
[2021-10-13] MEDS: OLANZapine ODT 10 MG TAB.RAPDIS 5 MG TRANSLINGU (11:41)
[2021-10-13] MEDS: Acetaminophen 325 MG TABLET 650 MG PO ×2 (11:41→19:55)
[2021-10-13] MEDS: hydrOXYzine HCL 50 MG TABLET PO (14:21)
[2021-10-13] MEDS: Ibuprofen 600 MG TABLET PO (16:36)
[2021-10-13 20:07] VITALS: BP 128/63; PULSE 76; RESP 16; TEMP 36.3; O2SAT 97
[2021-10-13] MEDS: traZODone HCL 100 MG TABLET PO (20:21)
[2021-10-13] MEDS: OLANZapine 10 MG TABLET 20 MG PO (20:21)
--- NOTE | 2021-10-13 20:50 | P.PNPSI_ITS ---
Subjective Subjective Date of Service: 10/13/21 Reason For Visit: Psychosis Interim History: pt more calm and less labile than in recent memory. He reports he feels improved. He is starting to process how he went off his medications causing his girlfriend saw the part that isn't me . He seems regretful about that. Patient is not manic. He denies SI. Says that he didn't hear voices before but rather those were thoughts Adherent to meds. Review of Systems Review of Systems Pertinent positives and negatives as stated in HPI. Mental Status Exam Mental Status Exam Narrative: pt cooperative, pleasant. non-pressured speech, organized thoughts. appropriately dressed and groomed. no PMA/PMR. affect constricted, normo- intense, non-labile. mood not assessed. no SI/HI/AVH expressed. Diagnostics Vital Signs (24Hr): Vital Signs - 24 hr 10/13/21 08:22 10/13/21 20:07 Temperature 97.8 F 97.3 F Pulse Rate 85 76 Respiratory Rate 16 Blood Pressure 117/75 128/63 Pulse Oximetry 97 97 BMI result Body Mass Index 26.9 Labs Results: 10/10/21 09:53 10/10/21 09:53 Imaging Radiology Impressions: ITS Impressions Head CT 10/10/21 15:55 IMPRESSION: No acute intracranial pathology. Medications Medications Current Medications Acetaminophen (Acetaminophen 325 Mg Tablet) 650 mg PO Q6H PRN PRN Reason: Headache/Pain Mild Scale (1-3) Last Admin: 10/13/21 19:55 Dose: 650 mg Documented by: Al Hydroxide/Mg Hydroxide (Magnesium Hydrox/Alum Hydrox 30 Ml Oral.Susp) 30 ml PO Q6H PRN PRN Reason: Heartburn/Nausea Albuterol Sulfate (Albuterol Sulfate 90 Mcg 8 Gm Inhaler) 2 puff INHALE Q4H PRN PRN Reason: wheezing Last Admin: 10/11/21 22:26 Dose: 2 puff Documented by: Atenolol (Atenolol 100 Mg Tablet) 100 mg PO DAILY DEE DEE; Protocol Last Admin: 10/13/21 08:26 Dose: 100 mg Documented by: Carbamazepine (Carbamazepine Er 200 Mg Tab.Er.12h) 400 mg PO BID DEE DEE Last Admin: 10/13/21 20:21 Dose: 400 mg Documented by: Hydroxyzine HCl (Hydroxyzine Hcl 50 Mg Tablet) 50 mg PO Q6H PRN PRN Reason: Anxiety Last Admin: 10/13/21 14:21 Dose: 50 mg Documented by: Ibuprofen (Ibuprofen 600 Mg Tablet) 600 mg PO Q6H PRN PRN Reason: Pain, Moderate (Pain Scale 4-6 Last Admin: 10/13/21 16:36 Dose: 600 mg Documented by: Magnesium Hydroxide (Milk Of Magnesia 30 Ml Oral.Susp) 30 ml PO DAILY PRN PRN Reason: Constipation Nicotine (Nicotine 21 Mg Patch.Td24) 21 mg TRANSDERMA DAILY [facility] Last Admin: 10/13/21 08:26 Dose: 21 mg Documented by: Nicotine Polacrilex (Nicotine Polacrilex 2 Mg Gum) 4 mg BUCCAL Q1H PRN PRN Reason: Nicotine Cravings Last Admin: 10/13/21 19:31 Dose: 4 mg Documented by: Olanzapine (Olanzapine 10 Mg Tablet) 10 mg PO DAILY [facility] Last Admin: 10/13/21 08:25 Dose: 10 mg Documented by: Olanzapine (Olanzapine 10 Mg Tablet) 20 mg PO BEDTIME [facility] Last Admin: 10/13/21 20:21 Dose: 20 mg Documented by: Olanzapine (Olanzapine Odt 10 Mg Tab.Rapdis) 5 mg TRANSLINGU DAILY PRN PRN Reason: Psychosis Last Admin: 10/13/21 11:41 Dose: 5 mg Documented by: Trazodone HCl (Trazodone Hcl 100 Mg Tablet) 100 mg PO BEDTIME [facility] Last Admin: 10/13/21 20:21 Dose: 100 mg Documented by: Trazodone HCl (Trazodone Hcl 50 Mg Tablet) 50 mg PO BEDTIME PRN PRN Reason: Insomnia Last Admin: 10/12/21 20:27 Dose: 50 mg Documented by: Allergies Allergies Allergy/AdvReac Type Severity Reaction Status Date / Time Sulfa (Sulfonamide Allergy Unknown RASH Verified 10/09/21 20:33 Antibiotics) tomato [TOMATO] Allergy Unknown MIGRAINS Verified 10/09/21 20:33 Assessment & Plan Assessment & Plan (1) Bipolar I disorder with sisi: Status: Acute Code(s): F31.10 - Bipolar disorder, current episode manic without psychotic features, u nspecified Plan started tegretol 200 BID 10/04.? pt states he cannot take lithium or depakote. scheduled ativan DCed 10/05 at pt request. DCed risperidone 1 BID at pt request 10/05 and started zyprexa 10 BID and 5 mg PRNs. 10/07/2021: Increased olanzapine to 10 am and 20 hs. 10/08: increased tegretol from 200 BID to 400 BID.? remains labile and disorganized. discharged 10/09 on 30-day notice, readmitted 10/10 after being found unconscious on sidewalk in front of pharmacy where he had been unable to get his medications. 10/11: meds restated/continued. observe for stabilization. 10/12: appears more settled, less labile. 10/13 No change in medications I spent minutes with the patient and/or on the patient floor today, greater than?50% of which was spent counseling/coordinating care. Reason for contiued inpatient stay Substantial Risk for: harm to others and rapid decompensation
[2021-10-14] MEDS: traZODone HCL 50 MG TABLET PO ×3 (02:25→23:34)
[2021-10-14] MEDS: Ibuprofen 600 MG TABLET PO (02:25)
[2021-10-14] MEDS: Nicotine Polacrilex 2 MG GUM 4 MG BUCCAL (06:05)
[2021-10-14 07:44] VITALS: BP 120/82; PULSE 80; RESP 16; TEMP 36.6; O2SAT 97
[2021-10-14] MEDS: atenoloL 100 MG TABLET PO (08:24)
[2021-10-14] MEDS: carBAMazepine ER 200 MG TAB.ER.12H 400 MG PO ×2 (08:24→20:07)
[2021-10-14] MEDS: Nicotine 21 MG PATCH.TD24 TRANSDERMA (08:26)
[2021-10-14] MEDS: Acetaminophen 325 MG TABLET 650 MG PO ×2 (09:41→15:39)
[2021-10-14] MEDS: Ibuprofen 800 MG TABLET PO (11:01)
[2021-10-14] MEDS: hydrOXYzine HCL 50 MG TABLET PO ×2 (12:27→20:07)
[2021-10-14] MEDS: OLANZapine ODT 10 MG TAB.RAPDIS 5 MG TRANSLINGU (13:05)
[2021-10-14 18:00] VITALS: BP 120/76; PULSE 73; RESP 16; TEMP 36.6; O2SAT 98
--- NOTE | 2021-10-14 18:36 | HO.PSYCHPN ---
Subjective Subjective Date of Service: 10/14/21 Reason For Visit: Psychosis Interim History: pt more calm and less labile. Refused AM Zyprexa because he felt it made him tired. He agrees to switch the dose to HS. Says he thinks only tegretol is needed for his treatment. Educated about synergistic effects of both. He reports he feels improved. He says he won't be homeless and has his brother. He is also eager to start a job in [employer]. 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 Patient is not manic. He denies SI. CO sciatica pain Review of Systems Review of Systems Pertinent positives and negatives as stated in HPI. Mental Status Exam Mental Status Exam Narrative: pt cooperative, pleasant. non-pressured speech, organized thoughts. appropriately dressed and groomed. no PMA/PMR. affect constricted, normo-intense, non-labile. mood not assessed. no SI/HI/AVH expressed. Diagnostics Vital Signs (24Hr): Vital Signs - 24 hr 10/13/21 20:07 10/14/21 07:44 Temperature 97.3 F 97.9 F Pulse Rate 76 80 Respiratory Rate 16 16 Blood Pressure 128/63 120/82 Pulse Oximetry 97 97 BMI result Body Mass Index 26.9 Labs Results: 10/10/21 09:53 10/10/21 09:53 Imaging Radiology Impressions: ITS Impressions Head CT 10/10/21 15:55 IMPRESSION: No acute intracranial pathology. Medications Medications Current Medications Acetaminophen (Acetaminophen 325 Mg Tablet) 650 mg PO Q6H PRN PRN Reason: Headache/Pain Mild Scale (1-3) Last Admin: 10/14/21 15:39 Dose: 650 mg Documented by: Al Hydroxide/Mg Hydroxide (Magnesium Hydrox/Alum Hydrox 30 Ml Oral.Susp) 30 ml PO Q6H PRN PRN Reason: Heartburn/Nausea Albuterol Sulfate (Albuterol Sulfate 90 Mcg 8 Gm Inhaler) 2 puff INHALE Q4H PRN PRN Reason: wheezing Last Admin: 10/11/21 22:26 Dose: 2 puff Documented by: Atenolol (Atenolol 100 Mg Tablet) 100 mg PO DAILY DEE DEE; Protocol Last Admin: 10/14/21 08:24 Dose: 100 mg Documented by: Carbamazepine (Carbamazepine Er 200 Mg Tab.Er.12h) 400 mg PO BID ON LICENSE OF [facility] Last Admin: 10/14/21 08:24 Dose: 400 mg Documented by: Hydroxyzine HCl (Hydroxyzine Hcl 50 Mg Tablet) 50 mg PO Q6H PRN PRN Reason: Anxiety Last Admin: 10/14/21 12:27 Dose: 50 mg Documented by: Ibuprofen (Ibuprofen 800 Mg Tablet) 800 mg PO Q6H PRN PRN Reason: Pain, Moderate (Pain Scale 4-6 Last Admin: 10/14/21 11:01 Dose: 800 mg Documented by: Magnesium Hydroxide (Milk Of Magnesia 30 Ml Oral.Susp) 30 ml PO DAILY PRN PRN Reason: Constipation Nicotine (Nicotine 21 Mg Patch.Td24) 21 mg TRANSDERMA DAILY ON LICENSE OF [facility] Last Admin: 10/14/21 08:26 Dose: 21 mg Documented by: Nicotine Polacrilex (Nicotine Polacrilex 2 Mg Gum) 4 mg BUCCAL Q1H PRN PRN Reason: Nicotine Cravings Last Admin: 10/14/21 06:05 Dose: 4 mg Documented by: Olanzapine (Olanzapine Odt 10 Mg Tab.Rapdis) 5 mg TRANSLINGU DAILY PRN PRN Reason: Psychosis Last Admin: 10/14/21 13:05 Dose: 5 mg Documented by: Olanzapine (Olanzapine 10 Mg Tablet) 30 mg PO BEDTIME ON LICENSE OF [facility] Trazodone HCl (Trazodone Hcl 100 Mg Tablet) 100 mg PO BEDTIME ON LICENSE OF [facility] Last Admin: 10/13/21 20:21 Dose: 100 mg Documented by: Trazodone HCl (Trazodone Hcl 50 Mg Tablet) 50 mg PO BEDTIME PRN PRN Reason: Insomnia Last Admin: 10/14/21 02:25 Dose: 50 mg Documented by: Allergies Allergies Allergy/AdvReac Type Severity Reaction Status Date / Time Sulfa (Sulfonamide Allergy Unknown RASH Verified 10/09/21 20:33 Antibiotics) tomato [TOMATO] Allergy Unknown MIGRAINS Verified 10/09/21 20:33 Assessment & Plan Assessment & Plan (1) Bipolar I disorder with sisi: Status: Acute Code(s): F31.10 - Bipolar disorder, current episode manic without psychotic features, unspecified Plan started tegretol 200 BID 10/04.? pt states he cannot take lithium or depakote. scheduled ativan DCed 10/05 at pt request. DCed risperidone 1 BID at pt request 10/05 and started zyprexa 10 BID and 5 mg PRNs. 10/07/2021: Increased olanzapine to 10 am and 20 hs. 10/08: increased tegretol from 200 BID to 400 BID.? remains labile and disorganized. discharged 10/09 on 30-day notice, readmitted 10/10 after being found unconscious on sidewalk in front of pharmacy where he had been unable to get his medications. 10/11: meds restated/continued. observe for stabilization. 10/12: appears more settled, less labile. 10/13 No change in medications 10/14 Switch Zyprexa to HS 30 mg. Increase Ibuprofen to 800 mg PRN for sciatica I spent minutes with the patient and/or on the patient floor today, greater than?50% of which was spent counseling/coordinating care. Reason for contiued inpatient stay Substantial Risk for: inability to function and rapid decompensation
[2021-10-14] MEDS: traZODone HCL 100 MG TABLET PO (20:06)
[2021-10-14] MEDS: OLANZapine 10 MG TABLET 30 MG PO (20:07)
[2021-10-15] MEDS: Nicotine Polacrilex 2 MG GUM 4 MG BUCCAL (04:55)
[2021-10-15] MEDS: Ibuprofen 800 MG TABLET PO ×2 (05:33→16:15)
[2021-10-15] MEDS: OLANZapine ODT 10 MG TAB.RAPDIS 5 MG TRANSLINGU (05:54)
[2021-10-15] MEDS: Acetaminophen 325 MG TABLET 650 MG PO ×2 (05:54→20:18)
[2021-10-15 08:15] VITALS: BP 127/68; PULSE 65; RESP 16; TEMP 36.6; O2SAT 96
[2021-10-15] MEDS: Nicotine 21 MG PATCH.TD24 TRANSDERMA (08:20)
[2021-10-15] MEDS: carBAMazepine ER 200 MG TAB.ER.12H 400 MG PO ×2 (08:21→20:07)
[2021-10-15] MEDS: atenoloL 100 MG TABLET PO (08:22)
[2021-10-15] MEDS: hydrOXYzine HCL 50 MG TABLET PO (10:47)
--- NOTE | 2021-10-15 14:44 | HO.PSYCHPN ---
Subjective Subjective Date of Service: 10/15/21 Reason For Visit: Psychosis Interim History: pt seen twice. first time pt demanding discharge, then second time pt finds MD and tells him he would like to stay. he observes his brother also told him he should stay, even if he doesn't like it. he reports it was his boss who was telling him he needed to discharge today or he wouldn't be able to work the [employer] gig he had been promised. per staff, refused morning zyprexa yesterday only to take the PRN dose in early afternoon. denying AVH. pacing. poor sleep. slept about 6 hours overnight. agreeable to have labs drawn . Mental Status Exam Mental Status Exam Narrative: pt cooperative, pleasant. non-pressured speech, fairly organized thoughts. appropriately dressed and groomed. no PMA/PMR. affect constricted, normo-intense, non-labile. mood not assessed. no SI/HI/AVH expressed. Diagnostics Vital Signs (24Hr): Vital Signs - 24 hr 10/14/21 18:00 10/15/21 08:15 Temperature 97.9 F 97.8 F Pulse Rate 73 65 Respiratory Rate 16 16 Blood Pressure 120/76 127/68 Pulse Oximetry 98 96 BMI result Body Mass Index 26.9 Labs Results: 10/10/21 09:53 10/10/21 09:53 Imaging Radiology Impressions: ITS Impressions Head CT 10/10/21 15:55 IMPRESSION: No acute intracranial pathology. Medications Medications Current Medications Acetaminophen (Acetaminophen 325 Mg Tablet) 650 mg PO Q6H PRN PRN Reason: Headache/Pain Mild Scale (1-3) Last Admin: 10/15/21 05:54 Dose: 650 mg Documented by: Al Hydroxide/Mg Hydroxide (Magnesium Hydrox/Alum Hydrox 30 Ml Oral.Susp) 30 ml PO Q6H PRN PRN Reason: Heartburn/Nausea Albuterol Sulfate (Albuterol Sulfate 90 Mcg 8 Gm Inhaler) 2 puff INHALE Q4H PRN PRN Reason: wheezing Last Admin: 10/11/21 22:26 Dose: 2 puff Documented by: Atenolol (Atenolol 100 Mg Tablet) 100 mg PO DAILY DEE DEE; Protocol Last Admin: 10/15/21 08:22 Dose: 100 mg Documented by: Carbamazepine (Carbamazepine Er 200 Mg Tab.Er.12h) 400 mg PO BID COUNT [facility]CLUD[facility] Last Admin: 10/15/21 08:21 Dose: 400 mg Documented by: Hydroxyzine HCl (Hydroxyzine Hcl 50 Mg Tablet) 50 mg PO Q6H PRN PRN Reason: Anxiety Last Admin: 10/15/21 10:47 Dose: 50 mg Documented by: Ibuprofen (Ibuprofen 800 Mg Tablet) 800 mg PO Q6H PRN PRN Reason: Pain, Moderate (Pain Scale 4-6 Last Admin: 10/15/21 05:33 Dose: 800 mg Documented by: Magnesium Hydroxide (Milk Of Magnesia 30 Ml Oral.Susp) 30 ml PO DAILY PRN PRN Reason: Constipation Nicotine (Nicotine 21 Mg Patch.Td24) 21 mg TRANSDERMA DAILY [facility] Last Admin: 10/15/21 08:20 Dose: 21 mg Documented by: Nicotine Polacrilex (Nicotine Polacrilex 2 Mg Gum) 4 mg BUCCAL Q1H PRN PRN Reason: Nicotine Cravings Last Admin: 10/15/21 04:55 Dose: 4 mg Documented by: Olanzapine (Olanzapine Odt 10 Mg Tab.Rapdis) 5 mg TRANSLINGU DAILY PRN PRN Reason: Psychosis Last Admin: 10/15/21 05:54 Dose: 5 mg Documented by: Olanzapine (Olanzapine 10 Mg Tablet) 30 mg PO BEDTIME [facility] Last Admin: 10/14/21 20:07 Dose: 30 mg Documented by: Trazodone HCl (Trazodone Hcl 100 Mg Tablet) 100 mg PO BEDTIME [facility]CLUD[facility] Last Admin: 10/14/21 20:06 Dose: 100 mg Documented by: Trazodone HCl (Trazodone Hcl 50 Mg Tablet) 50 mg PO BEDTIME PRN PRN Reason: Insomnia Last Admin: 10/14/21 23:34 Dose: 50 mg Documented by: Allergies Allergies Allergy/AdvReac Type Severity Reaction Status Date / Time Sulfa (Sulfonamide Allergy Unknown RASH Verified 10/09/21 20:33 Antibiotics) tomato [TOMATO] Allergy Unknown MIGRAINS Verified 10/09/21 20:33 Assessment & Plan Assessment & Plan (1) Bipolar I disorder with sisi: Status: Acute Code(s): F31.10 - Bipolar disorder, current episode manic without psychotic features, unspecified Plan started tegretol 200 BID 10/04.? pt states he cannot take lithium or depakote. scheduled ativan DCed 10/05 at pt request. DCed risperidone 1 BID at pt request 10/05 and started zyprexa 10 BID and 5 mg PRNs. 10/07/2021: Increased olanzapine to 10 am and 20 hs. 10/08: increased tegretol from 200 BID to 400 BID.? remains labile and disorganized. discharged 10/09 on 30-day notice, readmitted 10/10 after being found unconscious on sidewalk in front of pharmacy where he had been unable to get his medications. 10/11: meds restarted/continued. observe for stabilization. 10/12: appears more settled, less labile. 10/13 No change in medications 10/14 Switch Zyprexa to HS 30 mg. Increase Ibuprofen to 800 mg PRN for sciatica 10/15: no change. labs ordered for 10/17. I spent ___35___ minutes with the patient and/or on the patient floor today, greater than?50% of which was spent counseling/coordinating care. Reason for contiued inpatient stay Substantial Risk for: inability to function and rapid decompensation
[2021-10-15 18:00] VITALS: BP 109/65; PULSE 77; RESP 18; TEMP 36.7; O2SAT 98
[2021-10-15] MEDS: OLANZapine 10 MG TABLET 30 MG PO (20:07)
[2021-10-15] MEDS: traZODone HCL 100 MG TABLET PO (20:07)
[2021-10-15] MEDS: traZODone HCL 50 MG TABLET PO (21:17)
[2021-10-16] MEDS: Ibuprofen 800 MG TABLET PO ×3 (03:58→20:59)
[2021-10-16 08:35] VITALS: BP 129/59; PULSE 70; RESP 16; TEMP 36.4; O2SAT 96
[2021-10-16] MEDS: Nicotine 21 MG PATCH.TD24 TRANSDERMA (08:37)
[2021-10-16] MEDS: carBAMazepine ER 200 MG TAB.ER.12H 400 MG PO (08:37)
[2021-10-16] MEDS: atenoloL 100 MG TABLET PO (08:37)
[2021-10-16] MEDS: Nicotine Polacrilex 2 MG GUM 4 MG BUCCAL (08:52)
[2021-10-16] MEDS: OLANZapine ODT 10 MG TAB.RAPDIS 5 MG TRANSLINGU (09:56)
[2021-10-16] MEDS: OLANZapine 5 MG TABLET PO ×2 (10:46→17:24)
[2021-10-16] MEDS: Acetaminophen 325 MG TABLET 650 MG PO ×2 (11:13→17:57)
[2021-10-16] MEDS: Multivitamin TABLET 1 TAB PO (14:57)
--- NOTE | 2021-10-16 15:21 | P.PNPSI_ITS ---
Subjective Subjective Date of Service: 10/16/21 Reason For Visit: Psychosis Interim History: pt calm and cooperative. states he does not wish to leave even though he has a 3-day notice that matures that day. feels more medication would be helpful for him, agrees to increase both tegretol and zyprexa. got extra dose of zyprexa this morning and reports it helped with his mood/anxiety quite considerably. per staff, 3-day up on . c/o AH. 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 no groups. pacing, anxious, grandiose, hyper-sabianism. eating and sleeping well. Mental Status Exam Mental Status Exam Narrative: pt cooperative, pleasant. non-pressured speech, organized thoughts. approp riately dressed and groomed. no PMA/PMR. affect constricted, normo-intense, min-labile. mood anxious. no SI/HI/AVH expressed. Diagnostics Vital Signs (24Hr): Vital Signs - 24 hr 10/15/21 18:00 10/16/21 08:35 Temperature 98.1 F 97.6 F Pulse Rate 77 70 Respiratory Rate 18 16 Blood Pressure 109/65 129/59 L Pulse Oximetry 98 96 BMI result Body Mass Index 26.9 Labs Results: 10/10/21 09:53 10/10/21 09:53 Imaging Radiology Impressions: ITS Impressions Head CT 10/10/21 15:55 IMPRESSION: No acute intracranial pathology. Medications Medications Current Medications Acetaminophen (Acetaminophen 325 Mg Tablet) 650 mg PO Q6H PRN PRN Reason: Headache/Pain Mild Scale (1-3) Last Admin: 10/16/21 11:13 Dose: 650 mg Documented by: Al Hydroxide/Mg Hydroxide (Magnesium Hydrox/Alum Hydrox 30 Ml Oral.Susp) 30 ml PO Q6H PRN PRN Reason: Heartburn/Nausea Albuterol Sulfate (Albuterol Sulfate 90 Mcg 8 Gm Inhaler) 2 puff INHALE Q4H PRN PRN Reason: wheezing Last Admin: 10/11/21 22:26 Dose: 2 puff Documented by: Atenolol (Atenolol 100 Mg Tablet) 100 mg PO DAILY DEE DEE; Protocol Last Admin: 10/16/21 08:37 Dose: 100 mg Documented by: Carbamazepine (Carbamazepine Er 200 Mg Tab.Er.12h) 400 mg PO DAILY DEE DEE Carbamazepine (Carbamazepine Er 200 Mg Tab.Er.12h) 600 mg PO BEDTIME DEE DEE Hydroxyzine HCl (Hydroxyzine Hcl 50 Mg Tablet) 50 mg PO Q6H PRN PRN Reason: Anxiety Last Admin: 10/15/21 10:47 Dose: 50 mg Documented by: Ibuprofen (Ibuprofen 800 Mg Tablet) 800 mg PO Q6H PRN PRN Reason: Pain, Moderate (Pain Scale 4-6 Last Admin: 10/16/21 12:37 Dose: 800 mg Documented by: Magnesium Hydroxide (Milk Of Magnesia 30 Ml Oral.Susp) 30 ml PO DAILY PRN PRN Reason: Constipation Multivitamins/Vitamin C (Multivitamin Tablet) 1 tab PO DAILY [facility] Last Admin: 10/16/21 14:57 Dose: 1 tab Documented by: Nicotine (Nicotine 21 Mg Patch.Td24) 21 mg TRANSDERMA DAILY [facility] Last Admin: 10/16/21 08:37 Dose: 21 mg Documented by: Nicotine Polacrilex (Nicotine Polacrilex 2 Mg Gum) 4 mg BUCCAL Q1H PRN PRN Reason: Nicotine Cravings Last Admin: 10/16/21 08:52 Dose: 4 mg Documented by: Olanzapine (Olanzapine Odt 10 Mg Tab.Rapdis) 5 mg TRANSLINGU DAILY PRN PRN Reason: Psychosis Last Admin: 10/16/21 09:56 Dose: 5 mg Documented by: Olanzapine (Olanzapine 10 Mg Tablet) 30 mg PO BEDTIME [facility] Last Admin: 10/15/21 20:07 Dose: 30 mg Documented by: Olanzapine (Olanzapine 10 Mg Tablet) 10 mg PO DAILY [facility] Trazodone HCl (Trazodone Hcl 100 Mg Tablet) 100 mg PO BEDTIME [facility] Last Admin: 10/15/21 20:07 Dose: 100 mg Documented by: Trazodone HCl (Trazodone Hcl 50 Mg Tablet) 50 mg PO BEDTIME PRN PRN Reason: Insomnia Last Admin: 10/15/21 21:17 Dose: 50 mg Documented by: Allergies Allergies Allergy/AdvReac Type Severity Reaction Status Date / Time Sulfa (Sulfonamide Allergy Unknown RASH Verified 10/09/21 20:33 Antibiotics) tomato [TOMATO] Allergy Unknown MIGRAINS Verified 10/09/21 20:33 Assessment & Plan Assessment & Plan (1) Bipolar I disorder with sisi: Status: Acute Code(s): F31.10 - Bipolar disorder, current episode manic without psychotic features, unspecified Plan started tegretol 200 BID 10/04.? pt states he cannot take lithium or depakote. scheduled ativan DCed 10/05 at pt request. DCed risperidone 1 BID at pt request 10/05 and started zyprexa 10 BID and 5 mg PRNs. 10/07/2021: Increased olanzapine to 10 am and 20 hs. 10/08: increased tegretol from 200 BID to 400 BID.? remains labile and disorganized. discharged 10/09 on 30-day notice, readmitted 10/10 after being found unconscious on sidewalk in front of pharmacy where he had been unable to get his medications. 10/11: meds restarted/continued. observe for stabilization. 10/12: appears more settled, less labile. 10/13 No change in medications 10/14 Switch Zyprexa to HS 30 mg. Increase Ibuprofen to 800 mg PRN for sciatica 10/15: no change. labs ordered for 10/17. 10/16: increase tegretol to 400/600 and zyprexa to 04/07. I spent ___25___ minutes with the patient and/or on the patient floor today, greater than?50% of which was spent counseling/coordinating care. Reason for contiued inpatient stay Substantial Risk for: inability to function and rapid decompensation
[2021-10-16 18:00] VITALS: BP 108/55; PULSE 76; RESP 18; TEMP 36.6; O2SAT 96
[2021-10-16] MEDS: traZODone HCL 100 MG TABLET PO (20:56)
[2021-10-16] MEDS: carBAMazepine ER 200 MG TAB.ER.12H 600 MG PO (20:56)
[2021-10-16] MEDS: OLANZapine 10 MG TABLET 30 MG PO (20:56)
[2021-10-16] MEDS: hydrOXYzine HCL 50 MG TABLET PO (23:42)
[2021-10-16] MEDS: traZODone HCL 50 MG TABLET PO (23:42)
[2021-10-17] MEDS: Multivitamin TABLET 1 TAB PO (08:15)
[2021-10-17] MEDS: atenoloL 100 MG TABLET PO (08:15)
[2021-10-17] MEDS: carBAMazepine ER 200 MG TAB.ER.12H 400 MG PO (08:15)
[2021-10-17] MEDS: OLANZapine 10 MG TABLET PO (08:15)
[2021-10-17] MEDS: Nicotine 21 MG PATCH.TD24 TRANSDERMA (08:16)
[2021-10-17] MEDS: Acetaminophen 325 MG TABLET 650 MG PO (08:20)
[2021-10-17 08:35] VITALS: BP 121/77; PULSE 76; RESP 16; TEMP 36.6; O2SAT 96
[2021-10-17 08:54] LABS: MANUAL DIFF FLAG NO
[2021-10-17] MEDS: Magnesium Hydrox/Alum Hydrox 30 ML ORAL.SUSP PO (08:55)
[2021-10-17 08:57] LABS: Basophils Percent Auto 0.6 % (0-2); Eosinophils Absolute Auto 0.2 X10*3/uL (0.0-0.4); Eosinophils Percent Auto 2.5 % (0-4); Hematocrit 42.6 % (42.0-52.0); Hemoglobin 14.3 g/dl (14.0-18.0); Imm Gran Abs Auto 0.03 X10*3/uL (0.00-0.03); Imm Gran Pct Auto 0.5 % (0.0-0.4); Lymphocytes Absolute Auto 2.3 X10*3/uL (1.2-4.9); Lymphocytes Percent Auto 35.7 % (20-40); Mean Corpuscular HGB Conc 33.6 g/dl (31.0-36.0); Mean Corpuscular Volume 92.4 fL (80.0-98.0); Mean Platelet Volume 10.4 fL (9.4-12.4); Monocytes Absolute Auto 0.6 X10*3/uL (0.1-1.2); Monocytes Percent Auto 9.2 % (2-11); Neutrophils Absolute Auto 3.3 x10*3/uL (2.0-8.3); Neutrophils Percent Auto 51.5 % (45-73); Platelet Count 238 X10*3/uL (160-400); Red Blood Count 4.61 X10*6/uL (4.60-5.80); Red Cell Distribution Width 12.7 % (11.0-16.0); White Blood Count 6.5 X10*3/uL (4.8-10.8)
[2021-10-17 09:35] LABS: Alanine Aminotransferase 27 U/L (0-40); Albumin Level 4.2 g/dL (3.5-5.0); Alkaline Phosphatase 65 U/L (39-117); Anion Gap 13 (12-20); Aspartate Amino Transferase 21 U/L (5-37); Bilirubin Direct < 0.2 mg/dL (0.0-0.5); Bilirubin Total < 0.2 mg/dL (0.0-1.0); Blood Urea Nitrogen 20 mg/dL (9-16); Calcium 9.3 mg/dL (8.4-10.2); Carbon Dioxide 26 mmol/L (22-29); Chloride 103 mmol/L (96-108); Creatinine Clr Calc Pharmacy 106.6; Estimated Glomerular Filt Rate > 60; Glucose Random 104 mg/dL (60-115); Potassium 5.6 mmol/L (3.3-5.1); Sodium 136 mmol/L (135-145); Total Protein 6.9 g/dL (6.5-8.0)
[2021-10-17 10:23] LABS: Carbamazepine Tegretol 11.1 mcg/mL (5.0-12.0)
[2021-10-17] MEDS: OLANZapine ODT 10 MG TAB.RAPDIS 5 MG TRANSLINGU (10:28)
[2021-10-17] MEDS: hydrOXYzine HCL 50 MG TABLET PO ×2 (11:24→17:14)
[2021-10-17] MEDS: Ibuprofen 800 MG TABLET PO ×2 (11:47→20:22)
[2021-10-17] MEDS: LORazepam 1 MG TABLET PO ×2 (13:58→20:14)
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
[2021-10-17] MEDS: carBAMazepine ER 200 MG TAB.ER.12H 600 MG PO (20:14)
[2021-10-17] MEDS: OLANZapine 10 MG TABLET 30 MG PO (20:14)
[2021-10-17] MEDS: traZODone HCL 100 MG TABLET PO (20:15)
[2021-10-17] MEDS: Nicotine Polacrilex 2 MG GUM 4 MG BUCCAL (20:15)
[2021-10-17 20:30] VITALS: BP 149/79; PULSE 102; RESP 18; TEMP 36.3; O2SAT 96
[2021-10-17] MEDS: traZODone HCL 50 MG TABLET PO (22:45)
[2021-10-18] MEDS: traZODone HCL 50 MG TABLET PO (00:31)
[2021-10-18] MEDS: hydrOXYzine HCL 50 MG TABLET PO (06:26)
[2021-10-18 07:00] VITALS: BMI 27.8
[2021-10-18 08:12] VITALS: BP 130/67; PULSE 74; RESP 16; TEMP 36.3; O2SAT 97
[2021-10-18] MEDS: Nicotine 21 MG PATCH.TD24 TRANSDERMA (08:43)
[2021-10-18] MEDS: carBAMazepine ER 200 MG TAB.ER.12H 400 MG PO (08:45)
[2021-10-18] MEDS: Multivitamin TABLET 1 TAB PO (08:45)
[2021-10-18] MEDS: Ibuprofen 800 MG TABLET PO ×2 (08:45→15:50)
[2021-10-18] MEDS: OLANZapine 10 MG TABLET PO (08:45)
[2021-10-18] MEDS: atenoloL 100 MG TABLET PO (08:45)
[2021-10-18 09:06] LABS: Anion Gap 11 (12-20); Blood Urea Nitrogen 23 mg/dL (9-16); Calcium 9.8 mg/dL (8.4-10.2); Carbon Dioxide 24 mmol/L (22-29); Chloride 104 mmol/L (96-108); Estimated Glomerular Filt Rate > 60; Glucose Random 112 mg/dL (60-115); Potassium 5.2 mmol/L (3.3-5.1); Sodium 134 mmol/L (135-145)
[2021-10-18] MEDS: Acetaminophen 325 MG TABLET 650 MG PO (10:19)
[2021-10-18] MEDS: LORazepam 1 MG TABLET PO ×3 (11:08→20:36)
[2021-10-18] MEDS: OLANZapine ODT 10 MG TAB.RAPDIS 5 MG TRANSLINGU (12:13)
--- NOTE | 2021-10-18 13:07 | HO.PSYCHPN ---
Subjective Subjective Date of Service: 10/18/21 Reason For Visit: Psychosis Interim History: pt seen with MARGO Loredo. calm, cooperative. non-labile. somewhat paranoid about the reasons he might have been prescribed ativan - as a test of him by MD/Tx team somehow, of his addiction/character. MD reassured him it was meant only as a help but that MD was aware of his Hx and the concerns he has about that medication and that if he preferred not to take it that was fine. ultimately pt agreed to take it for now, as it was described as a bridge until tegretol working better and plan to DC the medication prior to discharge was explained. pt reports he feels slightly better still, better physically and therefore mentally in response. per staff, anxious, isolative, withdrawn. pacing, loose, grandiose. sleeping and eating well. having OCD thoughts in the afternoon, helped with ativan. angry outburst at peer whose behavior was deemed irritating. at that time was anxious, labile, tearful, yelling. had some insomnia last NOC and got trazodone twice. Mental Status Exam Mental Status Exam Narrative: pt cooperative, pleasant. non-pressured speech, organized thoughts. appropriately dressed and groomed. slight PMA of pacing the halls. affect moderately flexible, normo-intense, non-labile. mood anxious. no SI/HI/AVH expressed. Diagnostics Vital Signs (24Hr): Vital Signs - 24 hr 10/17/21 20:30 10/18/21 08:12 Temperature 97.4 F 97.4 F Pulse Rate 102 H 74 Respiratory Rate 18 16 Blood Pressure 149/79 H 130/67 Pulse Oximetry 96 97 BMI result Body Mass Index 27.8 Labs Results: 10/17/21 08:37 10/18/21 08:41 Labs: Laboratory Results - last 48 hr 10/17/21 10/17/21 10/18/21 08:37 08:37 08:41 WBC 6.5 RBC 4.61 Hgb 14.3 Hct 42.6 MCV 92.4 MCH 31.0 MCHC 33.6 RDW 12.7 Plt Count 238 MPV 10.4 Immature Gran % (Auto) 0.5 H Neut % (Auto) 51.5 Lymph % (Auto) 35.7 [place] % (Auto) 9.2 Eos % (Auto) 2.5 Baso % (Auto) 0.6 Lymph # (Auto) 2.3 [place] # (Auto) 0.6 Eos # (Auto) 0.2 Baso # (Auto) 0.0 Abs Immat Gran (auto) 0.03 Absolute Neuts (auto) 3.3 Absolute Nucleated RBC 0.000 Nucleated RBC % (auto) 0.0 Sodium 136 134 L Potassium 5.6 H D 5.2 H Chloride 103 104 Carbon Dioxide 26 24 Anion Gap 13 11 L BUN 20 H 23 H Creatinine 0.98 0.97 Estim Creat Clear Calc 106.6 117.0 Estimated GFR > 60 > 60 Random Glucose 104 112 Calcium 9.3 9.8 Total Bilirubin < 0.2 Direct Bilirubin < 0.2 AST 21 ALT 27 Alkaline Phosphatase 65 Total Protein 6.9 Albumin 4.2 Carbamazepine 11.1 Imaging Radiology Impressions: ITS Impressions Head CT 10/10/21 15:55 IMPRESSION: No acute intracranial pathology. Medications Medications Current Medications Acetaminophen (Acetaminophen 325 Mg Tablet) 650 mg PO Q6H PRN PRN Reason: Headache/Pain Mild Scale (1-3) Last Admin: 10/18/21 10:19 Dose: 650 mg Documented by: Al Hydroxide/Mg Hydroxide (Magnesium Hydrox/Alum Hydrox 30 Ml Oral.Susp) 30 ml PO Q6H PRN PRN Reason: Heartburn/Nausea Last Admin: 10/17/21 08:55 Dose: 30 ml Documented by: Albuterol Sulfate (Albuterol Sulfate 90 Mcg 8 Gm Inhaler) 2 puff INHALE Q4H PRN PRN Reason: wheezing Last Admin: 10/11/21 22:26 Dose: 2 puff Documented by: Atenolol (Atenolol 100 Mg Tablet) 100 mg PO DAILY [facility]; Protocol Last Admin: 10/18/21 08:45 Dose: 100 mg Documented by: Carbamazepine (Carbamazepine Er 200 Mg Tab.Er.12h) 400 mg PO DAILY [facility] Last Admin: 10/18/21 08:45 Dose: 400 mg Documented by: Carbamazepine (Carbamazepine Er 200 Mg Tab.Er.12h) 600 mg PO BEDTIME [facility] Last Admin: 10/17/21 20:14 Dose: 600 mg Documented by: Hydroxyzine HCl (Hydroxyzine Hcl 50 Mg Tablet) 50 mg PO Q6H PRN PRN Reason: Anxiety Last Admin: 10/18/21 06:26 Dose: 50 mg Documented by: Ibuprofen (Ibuprofen 800 Mg Tablet) 800 mg PO Q6H PRN PRN Reason: Pain, Moderate (Pain Scale 4-6 Last Admin: 10/18/21 08:45 Dose: 800 mg Documented by: Lorazepam (Lorazepam 1 Mg Tablet) 1 mg PO TID [facility] Last Admin: 10/18/21 08:47 Dose: Not Given Documented by: Magnesium Hydroxide (Milk Of Magnesia 30 Ml Oral.Susp) 30 ml PO DAILY PRN PRN Reason: Constipation Multivitamins/Vitamin C (Multivitamin Tablet) 1 tab PO DAILY [facility] Last Admin: 10/18/21 08:45 Dose: 1 tab Documented by: Nicotine (Nicotine 21 Mg Patch.Td24) 21 mg TRANSDERMA DAILY [facility] Last Admin: 10/18/21 08:43 Dose: 21 mg Documented by: Nicotine Polacrilex (Nicotine Polacrilex 2 Mg Gum) 4 mg BUCCAL Q1H PRN PRN Reason: Nicotine Cravings Last Admin: 10/17/21 20:15 Dose: 4 mg Documented by: Olanzapine (Olanzapine Odt 10 Mg Tab.Rapdis) 5 mg TRANSLINGU DAILY PRN PRN Reason: Psychosis Last Admin: 10/18/21 12:13 Dose: 5 mg Documented by: Olanzapine (Olanzapine 10 Mg Tablet) 30 mg PO BEDTIME [facility] Last Admin: 10/17/21 20:14 Dose: 30 mg Documented by: Olanzapine (Olanzapine 10 Mg Tablet) 10 mg PO DAILY [facility] Last Admin: 10/18/21 08:45 Dose: 10 mg Documented by: Trazodone HCl (Trazodone Hcl 100 Mg Tablet) 100 mg PO BEDTIME [facility] Last Admin: 10/17/21 20:15 Dose: 100 mg Documented by: Trazodone HCl (Trazodone Hcl 50 Mg Tablet) 50 mg PO BEDTIME PRN PRN Reason: Insomnia Last Admin: 10/18/21 00:31 Dose: 50 mg Documented by: Allergies Allergies Allergy/AdvReac Type Severity Reaction Status Date / Time Sulfa (Sulfonamide Allergy Unknown RASH Verified 10/09/21 20:33 Antibiotics) tomato [TOMATO] Allergy Unknown MIGRAINS Verified 10/09/21 20:33 Assessment & Plan Assessment & Plan (1) Bipolar I disorder with sisi: Status: Acute Code(s): F31.10 - Bipolar disorder, current episode manic without psychotic features, unspecified Plan started tegretol 200 BID 10/04.? pt states he cannot take lithium or depakote. scheduled ativan DCed 10/05 at pt request. DCed risperidone 1 BID at pt request 10/05 and started zyprexa 10 BID and 5 mg PRNs. 10/07/2021: Increased olanzapine to 10 am and 20 hs. 10/08: increased tegretol from 200 BID to 400 BID.? remains labile and disorganized. discharged 10/09 on 30-day notice, readmitted 10/10 after being found unconscious on sidewalk in front of pharmacy where he had been unable to get his medications. 10/11: meds restarted/continued. observe for stabilization. 10/12: appears more settled, less labile. 10/13 No change in medications 10/14 Switch Zyprexa to HS 30 mg. Increase Ibuprofen to 800 mg PRN for sciatica 10/15: no change. labs ordered for 10/17. 10/16: increase tegretol to 400/600 and zyprexa to 04/07. 10/17: labs nml aside from elevated K. recheck lytes tomorrow. started ativan 1 TID for now in hopes tegretol increase will bear fruit soon. 10/18: K trending down. continue current mgmt. I spent ___25___ minutes with the patient and/or on the patient floor today, greater than?50% of which was spent counseling/coordinating care. Reason for contiued inpatient stay Substantial Risk for: inability to function and rapid decompensation
[2021-10-18 20:15] VITALS: BP 121/59; PULSE 82; TEMP 36.6; O2SAT 96
[2021-10-18] MEDS: traZODone HCL 100 MG TABLET PO (20:36)
[2021-10-18] MEDS: OLANZapine 10 MG TABLET 30 MG PO (20:36)
[2021-10-18] MEDS: carBAMazepine ER 200 MG TAB.ER.12H 600 MG PO (20:36)
[2021-10-19] MEDS: hydrOXYzine HCL 50 MG TABLET PO ×3 (04:00→17:23)
[2021-10-19] MEDS: Ibuprofen 800 MG TABLET PO ×2 (04:00→17:23)
[2021-10-19] MEDS: Albuterol Sulfate 90 MCG 8 GM INHALER 2 PUFF INHALE (07:09)
[2021-10-19] MEDS: Milk of Magnesia 30 ML ORAL.SUSP PO (07:56)
[2021-10-19 08:43] VITALS: BP 122/71; PULSE 97; RESP 16; TEMP 36.3; O2SAT 97
[2021-10-19] MEDS: Multivitamin TABLET 1 TAB PO (09:29)
[2021-10-19] MEDS: carBAMazepine ER 200 MG TAB.ER.12H 400 MG PO (09:29)
[2021-10-19] MEDS: LORazepam 1 MG TABLET PO ×3 (09:29→23:04)
[2021-10-19] MEDS: atenoloL 100 MG TABLET PO (09:29)
[2021-10-19] MEDS: OLANZapine 10 MG TABLET PO (09:29)
[2021-10-19] MEDS: Nicotine 21 MG PATCH.TD24 TRANSDERMA (09:32)
[2021-10-19] MEDS: Acetaminophen 325 MG TABLET 650 MG PO (10:28)
[2021-10-19] MEDS: Butalb/Acetamin/Caff 50/325/40 TABLET 1 TAB PO (11:37)
[2021-10-19] MEDS: OLANZapine ODT 10 MG TAB.RAPDIS 5 MG TRANSLINGU (13:47)
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
[2021-10-19] MEDS: OLANZapine 10 MG TABLET 30 MG PO (23:04)
[2021-10-19] MEDS: carBAMazepine ER 200 MG TAB.ER.12H 600 MG PO (23:04)
[2021-10-19] MEDS: traZODone HCL 100 MG TABLET PO (23:05)
[2021-10-19 23:10] VITALS: BP 123/72; PULSE 74; RESP 16; TEMP 36.1; O2SAT 96
[2021-10-20] MEDS: Nicotine Polacrilex 2 MG GUM 4 MG BUCCAL ×2 (02:07→05:26)
[2021-10-20] MEDS: hydrOXYzine HCL 50 MG TABLET PO (02:27)
[2021-10-20] MEDS: traZODone HCL 50 MG TABLET PO (02:27)
[2021-10-20 06:00] VITALS: BP 120/63; PULSE 81; RESP 16; TEMP 36.6; O2SAT 94
[2021-10-20] MEDS: Ibuprofen 800 MG TABLET PO ×2 (06:09→10:17)
[2021-10-20] MEDS: Albuterol Sulfate 90 MCG 8 GM INHALER 2 PUFF INHALE (07:25)
[2021-10-20] MEDS: OLANZapine 10 MG TABLET PO (07:52)
[2021-10-20] MEDS: LORazepam 1 MG TABLET PO ×2 (07:52→14:51)
[2021-10-20] MEDS: Multivitamin TABLET 1 TAB PO (07:52)
[2021-10-20 07:53] LABS: Anion Gap 13 (12-20); Blood Urea Nitrogen 24 mg/dL (9-16); Calcium 9.6 mg/dL (8.4-10.2); Carbon Dioxide 24 mmol/L (22-29); Chloride 104 mmol/L (96-108); Creatinine Clr Calc Pharmacy 124.7; Estimated Glomerular Filt Rate > 60; Glucose Random 113 mg/dL (60-115); Potassium 5.5 mmol/L (3.3-5.1); Sodium 135 mmol/L (135-145)
[2021-10-20] MEDS: carBAMazepine ER 200 MG TAB.ER.12H 400 MG PO (07:53)
[2021-10-20] MEDS: atenoloL 100 MG TABLET PO (07:53)
[2021-10-20] MEDS: Acetaminophen 325 MG TABLET 650 MG PO ×2 (07:53→16:29)
[2021-10-20] MEDS: Nicotine 21 MG PATCH.TD24 TRANSDERMA (07:55)
[2021-10-20] MEDS: Milk of Magnesia 30 ML ORAL.SUSP PO (10:17)
--- NOTE | 2021-10-20 15:01 | HO.PSYCHPN ---
Subjective Subjective Date of Service: 10/20/21 Reason For Visit: Psychosis Interim History: pt pacing the halls reading aloud from the bible. calm, cooperative. states he has some trouble in the 3-8 pm interval, willing to continue with current regimen and use PRNs during that time for now. otherwise states he feels not too good due to some negative feedback from some peers re his pacing and recitation. per staff, moments of florid psychosis yesterday. agitated with peer yesterday. c/o migraine and got fiorocet, which was helpful. seeking medication of one sort or another from RN very frequently. calmer overnight, slept well. Mental Status Exam Mental Status Exam Narrative: pt cooperative, pleasant. non-pressured speech, organized thoughts. appropriately dressed and groomed. slight PMA of pacing the halls. affect constricted, normo-intense, non-labile. mood not too good. no SI/HI/AVH expressed. Diagnostics Vital Signs (24Hr): Vital Signs - 24 hr 10/19/21 23:10 10/20/21 06:00 Temperature 97.0 F 97.9 F Pulse Rate 74 81 Respiratory Rate 16 16 Blood Pressure 123/72 120/63 Pulse Oximetry 96 94 BMI result Body Mass Index 27.8 Labs Results: 10/17/21 08:37 10/20/21 07:20 Labs: Laboratory Results - last 48 hr 10/20/21 07:20 Sodium 135 Potassium 5.5 H Chloride 104 Carbon Dioxide 24 Anion Gap 13 BUN 24 H Creatinine 0.91 Estim Creat Clear Calc 124.7 Estimated GFR > 60 Random Glucose 113 Calcium 9.6 Imaging Radiology Impressions: ITS Impressions Head CT 10/10/21 15:55 IMPRESSION: No acute intracranial pathology. Medications Medications Current Medications Acetaminophen (Acetaminophen 325 Mg Tablet) 650 mg PO Q6H PRN PRN Reason: Headache/Pain Mild Scale (1-3) Last Admin: 10/20/21 07:53 Dose: 650 mg Documented by: Al Hydroxide/Mg Hydroxide (Magnesium Hydrox/Alum Hydrox 30 Ml Oral.Susp) 30 ml PO Q6H PRN PRN Reason: Heartburn/Nausea Last Admin: 10/17/21 08:55 Dose: 30 ml Documented by: Albuterol Sulfate (Albuterol Sulfate 90 Mcg 8 Gm Inhaler) 2 puff INHALE Q4H PRN PRN Reason: wheezing Last Admin: 10/20/21 07:25 Dose: 2 puff Documented by: Atenolol (Atenolol 100 Mg Tablet) 100 mg PO DAILY [facility]; Protocol Last Admin: 10/20/21 07:53 Dose: 100 mg Documented by: Carbamazepine (Carbamazepine Er 200 Mg Tab.Er.12h) 400 mg PO DAILY [facility] Last Admin: 10/20/21 07:53 Dose: 400 mg Documented by: Carbamazepine (Carbamazepine Er 200 Mg Tab.Er.12h) 600 mg PO BEDTIME [facility] Last Admin: 10/19/21 23:04 Dose: 600 mg Documented by: Hydroxyzine HCl (Hydroxyzine Hcl 50 Mg Tablet) 50 mg PO Q6H PRN PRN Reason: Anxiety Last Admin: 10/20/21 02:27 Dose: 50 mg Documented by: Ibuprofen (Ibuprofen 800 Mg Tablet) 800 mg PO Q6H PRN PRN Reason: Pain, Moderate (Pain Scale 4-6 Last Admin: 10/20/21 10:17 Dose: 800 mg Documented by: Lorazepam (Lorazepam 1 Mg Tablet) 1 mg PO TID [facility] Last Admin: 10/20/21 14:51 Dose: 1 mg Documented by: Magnesium Hydroxide (Milk Of Magnesia 30 Ml Oral.Susp) 30 ml PO DAILY PRN PRN Reason: Constipation Last Admin: 10/20/21 10:17 Dose: 30 ml Documented by: Multivitamins/Vitamin C (Multivitamin Tablet) 1 tab PO DAILY [facility] Last Admin: 10/20/21 07:52 Dose: 1 tab Documented by: Nicotine (Nicotine 21 Mg Patch.Td24) 21 mg TRANSDERMA DAILY [facility] Last Admin: 10/20/21 07:55 Dose: 21 mg Documented by: Nicotine Polacrilex (Nicotine Polacrilex 2 Mg Gum) 4 mg BUCCAL Q1H PRN PRN Reason: Nicotine Cravings Last Admin: 10/20/21 05:26 Dose: 4 mg Documented by: Olanzapine (Olanzapine Odt 10 Mg Tab.Rapdis) 5 mg TRANSLINGU DAILY PRN PRN Reason: Psychosis Last Admin: 10/19/21 13:47 Dose: 5 mg Documented by: Olanzapine (Olanzapine 10 Mg Tablet) 30 mg PO BEDTIME [facility] Last Admin: 10/19/21 23:04 Dose: 30 mg Documented by: Olanzapine (Olanzapine 10 Mg Tablet) 10 mg PO DAILY [facility] Last Admin: 10/20/21 07:52 Dose: 10 mg Documented by: Trazodone HCl (Trazodone Hcl 100 Mg Tablet) 100 mg PO BEDTIME [facility] Last Admin: 10/19/21 23:05 Dose: 100 mg Documented by: Trazodone HCl (Trazodone Hcl 50 Mg Tablet) 50 mg PO BEDTIME PRN PRN Reason: Insomnia Last Admin: 10/20/21 02:27 Dose: 50 mg Documented by: Allergies Allergies Allergy/AdvReac Type Severity Reaction Status Date / Time Sulfa (Sulfonamide Allergy Unknown RASH Verified 10/09/21 20:33 Antibiotics) tomato [TOMATO] Allergy Unknown MIGRAINS Verified 10/09/21 20:33 Assessment & Plan Assessment & Plan (1) Bipolar I disorder with sisi: Status: Acute Code(s): F31.10 - Bipolar disorder, current episode manic without psychotic features, unspecified Plan started tegretol 200 BID 10/04.? pt states he cannot take lithium or depakote. scheduled ativan DCed 10/05 at pt request. DCed risperidone 1 BID at pt request 10/05 and started zyprexa 10 BID and 5 mg PRNs. 10/07/2021: Increased olanzapine to 10 am and 20 hs. 10/08: increased tegretol from 200 BID to 400 BID.? remains labile and disorganized. discharged 10/09 on 30-day notice, readmitted 10/10 after being found unconscious on sidewalk in front of pharmacy where he had been unable to get his medications. 10/11: meds restarted/continued. observe for stabilization. 10/12: appears more settled, less labile. 10/13 No change in medications 10/14 Switch Zyprexa to HS 30 mg. Increase Ibuprofen to 800 mg PRN for sciatica 10/15: no change. labs ordered for 10/17. 10/16: increase tegretol to 400/600 and zyprexa to 04/07. 10/17: labs nml aside from elevated K. recheck lytes tomorrow. started ativan 1 TID for now in hopes tegretol increase will bear fruit soon. 10/18: K trending down. continue current mgmt. 10/19: check lytes tomorrow for down-trending potassium and up-trending BUN. concern tegretol is starting a hyponatremia. keep meds as they are pending repeat labs. 10/20: sodium normalized but potassium elevated. will recheck labs friday. stabilizing. I spent __25____ minutes with the patient and/or on the patient floor today, greater than?50% of which was spent counseling/coordinating care. Reason for contiued inpatient stay Substantial Risk for: inability to function and rapid decompensation
[2021-10-20] MEDS: OLANZapine ODT 10 MG TAB.RAPDIS 5 MG TRANSLINGU (16:28)
[2021-10-20 20:12] VITALS: BP 114/75; PULSE 88; RESP 16; TEMP 36.3; O2SAT 95
[2021-10-21] MEDS: OLANZapine 10 MG TABLET 30 MG PO ×2 (00:08→21:46)
[2021-10-21] MEDS: carBAMazepine ER 200 MG TAB.ER.12H 600 MG PO ×2 (00:08→21:46)
[2021-10-21] MEDS: traZODone HCL 100 MG TABLET PO ×2 (00:08→21:46)
[2021-10-21] MEDS: LORazepam 1 MG TABLET PO ×3 (00:08→21:47)
[2021-10-21] MEDS: Magnesium Hydrox/Alum Hydrox 30 ML ORAL.SUSP PO (06:39)
[2021-10-21 07:30] VITALS: BP 106/61; PULSE 97; RESP 16; TEMP 36.1; O2SAT 96
[2021-10-21] MEDS: atenoloL 100 MG TABLET PO (08:39)
[2021-10-21] MEDS: Multivitamin TABLET 1 TAB PO (08:39)
[2021-10-21] MEDS: carBAMazepine ER 200 MG TAB.ER.12H 400 MG PO (08:39)
[2021-10-21] MEDS: Nicotine 21 MG PATCH.TD24 TRANSDERMA (08:41)
[2021-10-21] MEDS: OLANZapine 10 MG TABLET PO (11:53)
[2021-10-21] MEDS: Nicotine Polacrilex 2 MG GUM 4 MG BUCCAL ×2 (11:54→17:27)
[2021-10-21] MEDS: Acetaminophen 325 MG TABLET 650 MG PO (12:16)
[2021-10-21] MEDS: hydrOXYzine HCL 50 MG TABLET PO (13:24)
[2021-10-21] MEDS: Ibuprofen 800 MG TABLET PO ×2 (13:24→22:15)
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
[2021-10-21] MEDS: Butalb/Acetamin/Caff 50/325/40 TABLET 1 TAB PO (14:10)
[2021-10-21 20:00] VITALS: BP 134/86; PULSE 89; RESP 18; TEMP 36.5; O2SAT 96
[2021-10-22] MEDS: Nicotine Polacrilex 2 MG GUM 4 MG BUCCAL ×2 (05:10→19:32)
[2021-10-22 08:00] VITALS: BP 125/74; PULSE 78; RESP 17; TEMP 36.6; O2SAT 97
[2021-10-22] MEDS: atenoloL 100 MG TABLET PO (08:10)
[2021-10-22] MEDS: Nicotine 21 MG PATCH.TD24 TRANSDERMA (08:11)
[2021-10-22] MEDS: carBAMazepine ER 200 MG TAB.ER.12H 400 MG PO (08:12)
[2021-10-22] MEDS: OLANZapine 10 MG TABLET PO (08:12)
[2021-10-22] MEDS: Multivitamin TABLET 1 TAB PO (08:12)
[2021-10-22] MEDS: LORazepam 1 MG TABLET PO ×3 (08:13→20:11)
[2021-10-22] MEDS: Albuterol Sulfate 90 MCG 8 GM INHALER 2 PUFF INHALE (10:37)
--- NOTE | 2021-10-22 11:02 | P.PNPSI_ITS ---
Subjective Subjective Date of Service: 10/22/21 Reason For Visit: Psychosis Subjective Notes: Conditional Voluntary Interim History: Pt reports doing better in that he is less depressed. He reports improved sleep. he denies VH/AH stating that has never been my problem, I usually have intrusive thoughts mostly positive ones. He describes mood as okay. He denies SI/HI. No behavioral concerns. Medication Compliance: Yes Side effects from medications: No Review of Systems Review of Systems Pertinent positives and negatives as stated in HPI. Mental Status Exam Mental Status Exam Narrative: pt cooperative, pleasant. non-pressured speech, organized thoughts. appropriately dressed and groomed. slight PMA of pacing the halls. Mood o hakan, affect congruent. no SI/HI/AVH expressed. Diagnostics Vital Signs (24Hr): Vital Signs - 24 hr 10/21/21 20:00 10/22/21 08:00 Temperature 97.7 F 97.8 F Pulse Rate 89 78 Respiratory Rate 18 17 Blood Pressure 134/86 125/74 Pulse Oximetry 96 97 BMI result Body Mass Index 27.8 Labs Results: 10/17/21 08:37 10/20/21 07:20 Imaging Radiology Impressions: ITS Impressions Head CT 10/10/21 15:55 IMPRESSION: No acute intracranial pathology. Medications Medications Current Medications Acetaminophen (Acetaminophen 325 Mg Tablet) 650 mg PO Q6H PRN PRN Reason: Headache/Pain Mild Scale (1-3) Last Admin: 10/21/21 12:16 Dose: 650 mg Documented by: Al Hydroxide/Mg Hydroxide (Magnesium Hydrox/Alum Hydrox 30 Ml Oral.Susp) 30 ml PO Q6H PRN PRN Reason: Heartburn/Nausea Last Admin: 10/21/21 06:39 Dose: 30 ml Documented by: Albuterol Sulfate (Albuterol Sulfate 90 Mcg 8 Gm Inhaler) 2 puff INHALE Q4H PRN PRN Reason: wheezing Last Admin: 10/22/21 10:37 Dose: 2 puff Documented by: Atenolol (Atenolol 100 Mg Tablet) 100 mg PO DAILY [facility]; Protocol Last Admin: 10/22/21 08:10 Dose: 100 mg Documented by: Carbamazepine (Carbamazepine Er 200 Mg Tab.Er.12h) 400 mg PO DAILY [facility] Last Admin: 10/22/21 08:12 Dose: 400 mg Documented by: Carbamazepine (Carbamazepine Er 200 Mg Tab.Er.12h) 600 mg PO BEDTIME [facility] Last Admin: 10/21/21 21:46 Dose: 600 mg Documented by: Hydroxyzine HCl (Hydroxyzine Hcl 50 Mg Tablet) 50 mg PO Q6H PRN PRN Reason: Anxiety Last Admin: 10/21/21 13:24 Dose: 50 mg Documented by: Ibuprofen (Ibuprofen 800 Mg Tablet) 800 mg PO Q6H PRN PRN Reason: Pain, Moderate (Pain Scale 4-6 Last Admin: 10/22/21 12:24 Dose: 800 mg Documented by: Lorazepam (Lorazepam 1 Mg Tablet) 1 mg PO TID [facility] Last Admin: 10/22/21 08:13 Dose: 1 mg Documented by: Magnesium Hydroxide (Milk Of Magnesia 30 Ml Oral.Susp) 30 ml PO DAILY PRN PRN Reason: Constipation Last Admin: 10/20/21 10:17 Dose: 30 ml Documented by: Multivitamins/Vitamin C (Multivitamin Tablet) 1 tab PO DAILY [facility] Last Admin: 10/22/21 08:12 Dose: 1 tab Documented by: Nicotine (Nicotine 21 Mg Patch.Td24) 21 mg TRANSDERMA DAILY [facility] Last Admin: 10/22/21 08:11 Dose: 21 mg Documented by: Nicotine Polacrilex (Nicotine Polacrilex 2 Mg Gum) 4 mg BUCCAL Q1H PRN PRN Reason: Nicotine Cravings Last Admin: 10/22/21 05:10 Dose: 4 mg Documented by: Olanzapine (Olanzapine Odt 10 Mg Tab.Rapdis) 5 mg TRANSLINGU DAILY PRN PRN Reason: Psychosis Last Admin: 10/22/21 12:24 Dose: 5 mg Documented by: Olanzapine (Olanzapine 10 Mg Tablet) 30 mg PO BEDTIME [facility] Last Admin: 10/21/21 21:46 Dose: 30 mg Documented by: Olanzapine (Olanzapine 10 Mg Tablet) 10 mg PO DAILY [facility] Last Admin: 10/22/21 08:12 Dose: 10 mg Documented by: Trazodone HCl (Trazodone Hcl 100 Mg Tablet) 100 mg PO BEDTIME [facility] Last Admin: 10/21/21 21:46 Dose: 100 mg Documented by: Trazodone HCl (Trazodone Hcl 50 Mg Tablet) 50 mg PO BEDTIME PRN PRN Reason: Insomnia Last Admin: 10/20/21 02:27 Dose: 50 mg Documented by: Allergies Allergies Allergy/AdvReac Type Severity Reaction Status Date / Time Sulfa (Sulfonamide Allergy Unknown RASH Verified 10/09/21 20:33 Antibiotics) tomato [TOMATO] Allergy Unknown MIGRAINS Verified 10/09/21 20:33 Assessment & Plan Assessment & Plan (1) Bipolar I disorder with sisi: Status: Acute Code(s): F31.10 - Bipolar disorder, current episode manic without psychotic features, unspecified Plan started tegretol 200 BID 10/04.? pt states he cannot take lithium or depakote. scheduled ativan DCed 10/05 at pt request. DCed risperidone 1 BID at pt request 10/05 and started zyprexa 10 BID and 5 mg PRNs. 10/07/2021: Increased olanzapine to 10 am and 20 hs. 10/08: increased tegretol from 200 BID to 400 BID.? remains labile and disorganized. discharged 10/09 on 30-day notice, readmitted 10/10 after being found unconscious on sidewalk in front of pharmacy where he had been unable to get his medications. 10/11: meds restarted/continued. observe for stabilization. 10/12: appears more settled, less labile. 10/13 No change in medications 10/14 Switch Zyprexa to HS 30 mg. Increase Ibuprofen to 800 mg PRN for sciatica 10/15: no change. labs ordered for 10/17. 10/16: increase tegretol to 400/600 and zyprexa to /30. 10/17: labs nml aside from elevated K. recheck lytes tomorrow. started ativan 1 TID for now in hopes tegretol increase will bear fruit soon. 10/18: K trending down. continue current mgmt. 10/19: check lytes tomorrow for down-trending potassium and up-trending BUN. concern tegretol is starting a hyponatremia. keep meds as they are pending repeat labs. 10/20: sodium normalized but potassium elevated. will recheck labs friday. stabilizing. 10/21: no change to regimen. 10/22 continue current medications. I spent ___25___ minutes with the patient and/or on the patient floor today, greater than?50% of which was spent counseling/coordinating care. Reason for contiued inpatient stay Substantial Risk for: harm to self and inability to function
[2021-10-22] MEDS: Ibuprofen 800 MG TABLET PO (12:24)
[2021-10-22] MEDS: OLANZapine ODT 10 MG TAB.RAPDIS 5 MG TRANSLINGU (12:24)
[2021-10-22] MEDS: Acetaminophen 325 MG TABLET 650 MG PO (19:32)
[2021-10-22 20:02] VITALS: BP 124/81; PULSE 98; RESP 16; TEMP 36.7; O2SAT 96
[2021-10-22] MEDS: OLANZapine 10 MG TABLET 30 MG PO (20:10)
[2021-10-22] MEDS: carBAMazepine ER 200 MG TAB.ER.12H 600 MG PO (20:11)
[2021-10-22] MEDS: traZODone HCL 100 MG TABLET PO (20:11)
[2021-10-23] MEDS: Nicotine Polacrilex 2 MG GUM 4 MG BUCCAL (05:20)
[2021-10-23] MEDS: Albuterol Sulfate 90 MCG 8 GM INHALER 2 PUFF INHALE (05:52)
[2021-10-23] MEDS: Ibuprofen 800 MG TABLET PO ×2 (08:17→21:58)
[2021-10-23] MEDS: carBAMazepine ER 200 MG TAB.ER.12H 400 MG PO (08:17)
[2021-10-23] MEDS: OLANZapine 10 MG TABLET PO (08:17)
[2021-10-23] MEDS: atenoloL 100 MG TABLET PO (08:18)
[2021-10-23] MEDS: Multivitamin TABLET 1 TAB PO (08:18)
[2021-10-23] MEDS: LORazepam 1 MG TABLET PO ×3 (08:18→21:37)
[2021-10-23 08:22] VITALS: BP 118/71; PULSE 78; RESP 17; TEMP 36.6; O2SAT 96
[2021-10-23] MEDS: Nicotine 21 MG PATCH.TD24 TRANSDERMA (10:28)
--- NOTE | 2021-10-23 10:39 | P.PNPSI_ITS ---
Subjective Subjective Date of Service: 10/23/21 Reason For Visit: Psychosis Interim History: Pt continues to report that medications are helping in that he feels less depressed, less intrusive thoughts. He denies SI/HI. He reports sleeping through the night. He denies VH/AH. Per nursing, pt visible in the unit, social with peers, reading bible at times. No behavioral concerns. Medication Compliance: Yes Side effects from medications: No Review of Systems Review of Systems Pertinent positives and negatives as stated in HPI. Mental Status Exam Mental Status Exam Narrative: pt cooperative, pleasant. non-pressured speech, organized thoughts. appropriately dressed and groomed. slight PMA of pacing the halls. Mood okay, affect congruent. no SI/HI/AVH expressed. Diagnostics Vital Signs (24Hr): Vital Signs - 24 hr 10/22/21 20:02 10/23/21 08:22 Temperature 98.1 F 97.8 F Pulse Rate 98 78 Respiratory Rate 16 17 Blood Pressure 124/81 118/71 Pulse Oximetry 96 96 BMI result Body Mass Index 27.8 Labs Results: 10/17/21 08:37 10/20/21 07:20 Imaging Radiology Impressions: ITS Impressions Head CT 10/10/21 15:55 IMPRESSION: No acute intracranial pathology. Medications Medications Current Medications Acetaminophen (Acetaminophen 325 Mg Tablet) 650 mg PO Q6H PRN PRN Reason: Headache/Pain Mild Scale (1-3) Last Admin: 10/22/21 19:32 Dose: 650 mg Documented by: Al Hydroxide/Mg Hydroxide (Magnesium Hydrox/Alum Hydrox 30 Ml Oral.Susp) 30 ml PO Q6H PRN PRN Reason: Heartburn/Nausea Last Admin: 10/21/21 06:39 Dose: 30 ml Documented by: Albuterol Sulfate (Albuterol Sulfate 90 Mcg 8 Gm Inhaler) 2 puff INHALE Q4H PRN PRN Reason: wheezing Last Admin: 10/23/21 05:52 Dose: 2 puff Documented by: Atenolol (Atenolol 100 Mg Tablet) 100 mg PO DAILY [facility]; Protocol Last Admin: 10/23/21 08:18 Dose: 100 mg Documented by: Carbamazepine (Carbamazepine Er 200 Mg Tab.Er.12h) 400 mg PO DAILY DEE DEE Last Admin: 10/23/21 08:17 Dose: 400 mg Documented by: Carbamazepine (Carbamazepine Er 200 Mg Tab.Er.12h) 600 mg PO BEDTIME [facility] Last Admin: 10/22/21 20:11 Dose: 600 mg Documented by: Hydroxyzine HCl (Hydroxyzine Hcl 50 Mg Tablet) 50 mg PO Q6H PRN PRN Reason: Anxiety Last Admin: 10/21/21 13:24 Dose: 50 mg Documented by: Ibuprofen (Ibuprofen 800 Mg Tablet) 800 mg PO Q6H PRN PRN Reason: Pain, Moderate (Pain Scale 4-6 Last Admin: 10/23/21 08:17 Dose: 800 mg Documented by: Lorazepam (Lorazepam 1 Mg Tablet) 1 mg PO TID [facility] Last Admin: 10/23/21 08:18 Dose: 1 mg Documented by: Magnesium Hydroxide (Milk Of Magnesia 30 Ml Oral.Susp) 30 ml PO DAILY PRN PRN Reason: Constipation Last Admin: 10/20/21 10:17 Dose: 30 ml Documented by: Multivitamins/Vitamin C (Multivitamin Tablet) 1 tab PO DAILY [facility] Last Admin: 10/23/21 08:18 Dose: 1 tab Documented by: Nicotine (Nicotine 21 Mg Patch.Td24) 21 mg TRANSDERMA DAILY [facility] Last Admin: 10/23/21 10:28 Dose: 21 mg Documented by: Nicotine Polacrilex (Nicotine Polacrilex 2 Mg Gum) 4 mg BUCCAL Q1H PRN PRN Reason: Nicotine Cravings Last Admin: 10/23/21 05:20 Dose: 4 mg Documented by: Olanzapine (Olanzapine Odt 10 Mg Tab.Rapdis) 5 mg TRANSLINGU DAILY PRN PRN Reason: Psychosis Last Admin: 10/22/21 12:24 Dose: 5 mg Documented by: Olanzapine (Olanzapine 10 Mg Tablet) 30 mg PO BEDTIME [facility] Last Admin: 10/22/21 20:10 Dose: 30 mg Documented by: Olanzapine (Olanzapine 10 Mg Tablet) 10 mg PO DAILY [facility] Last Admin: 10/23/21 08:17 Dose: 10 mg Documented by: Trazodone HCl (Trazodone Hcl 100 Mg Tablet) 100 mg PO BEDTIME [facility] Last Admin: 10/22/21 20:11 Dose: 100 mg Documented by: Trazodone HCl (Trazodone Hcl 50 Mg Tablet) 50 mg PO BEDTIME PRN PRN Reason: Insomnia Last Admin: 10/20/21 02:27 Dose: 50 mg Documented by: Allergies Allergies Allergy/AdvReac Type Severity Reaction Status Date / Time Sulfa (Sulfonamide Allergy Unknown RASH Verified 10/09/21 20:33 Antibiotics) tomato [TOMATO] Allergy Unknown MIGRAINS Verified 10/09/21 20:33 Assessment & Plan Assessment & Plan (1) Bipolar I disorder with ssii: Status: Acute Code(s): F31.10 - Bipolar disorder, current episode manic without psychotic features, unspecified Plan started tegretol 200 BID 10/04.? pt states he cannot take lithium or depakote. scheduled ativan DCed 10/05 at pt request. DCed risperidone 1 BID at pt request 10/05 and started zyprexa 10 BID and 5 mg OH Ns. 10/07/2021: Increased olanzapine to 10 am and 20 hs. 10/08: increased tegretol from 200 BID to 400 BID.? remains labile and disorganized. discharged 10/09 on 30-day notice, readmitted 10/10 after being found unconscious on sidewalk in front of pharmacy where he had been unable to get his medications. 10/11: meds restarted/continued. observe for stabilization. 10/12: appears more settled, less labile. 10/13 No change in medications 10/14 Switch Zyprexa to HS 30 mg. Increase Ibuprofen to 800 mg PRN for sciatica 10/15: no change. labs ordered for 10/17. 10/16: increase tegretol to 400/600 and zyprexa to /. 10/17: labs nml aside from elevated K. recheck lytes tomorrow. started ativan 1 TID for now in hopes tegretol increase will bear fruit soon. 10/18: K trending down. continue current mgmt. 10/19: check lytes tomorrow for down-trending potassium and up-trending BUN. concern tegretol is starting a hyponatremia. keep meds as they are pending repeat labs. 10/20: sodium normalized but potassium elevated. will recheck labs friday. stabilizing. 10/21: no change to regimen. 10/22 continue current medications. 10/23: continue current medications. I spent minutes with the patient and/or on the patient floor today, greater than?50% of which was spent counseling/coordinating care. Reason for contiued inpatient stay Substantial Risk for: harm to self
[2021-10-23] MEDS: carBAMazepine ER 200 MG TAB.ER.12H 600 MG PO (21:36)
[2021-10-23] MEDS: OLANZapine 10 MG TABLET 30 MG PO (21:36)
[2021-10-23 21:41] VITALS: PULSE 79; TEMP 36.6; O2SAT 94
[2021-10-23] MEDS: traZODone HCL 100 MG TABLET PO (22:37)
[2021-10-24] MEDS: Nicotine Polacrilex 2 MG GUM 4 MG BUCCAL (05:36)
[2021-10-24 08:00] VITALS: BP 131/72; PULSE 76; RESP 16; TEMP 36.7; O2SAT 99
[2021-10-24] MEDS: OLANZapine 10 MG TABLET PO (08:41)
[2021-10-24] MEDS: LORazepam 1 MG TABLET PO ×2 (08:41→15:07)
[2021-10-24] MEDS: atenoloL 100 MG TABLET PO (08:41)
[2021-10-24] MEDS: Multivitamin TABLET 1 TAB PO (08:41)
[2021-10-24] MEDS: carBAMazepine ER 200 MG TAB.ER.12H 400 MG PO (08:41)
[2021-10-24] MEDS: Nicotine 21 MG PATCH.TD24 TRANSDERMA (08:50)
[2021-10-24 10:55] LABS: MANUAL DIFF FLAG NO
[2021-10-24 11:01] LABS: Basophils Percent Auto 0.5 % (0-2); Eosinophils Absolute Auto 0.2 X10*3/uL (0.0-0.4); Eosinophils Percent Auto 2.8 % (0-4); Hematocrit 43.2 % (42.0-52.0); Imm Gran Abs Auto 0.05 X10*3/uL (0.00-0.03); Imm Gran Pct Auto 0.8 % (0.0-0.4); Lymphocytes Absolute Auto 2.3 X10*3/uL (1.2-4.9); Lymphocytes Percent Auto 35.3 % (20-40); Mean Corpuscular HGB Conc 34.7 g/dl (31.0-36.0); Mean Corpuscular Hemoglobin 31.6 pg (27.0-33.0); Mean Corpuscular Volume 90.9 fL (80.0-98.0); Mean Platelet Volume 10.4 fL (9.4-12.4); Monocytes Absolute Auto 0.6 X10*3/uL (0.1-1.2); Monocytes Percent Auto 8.5 % (2-11); Neutrophils Absolute Auto 3.4 x10*3/uL (2.0-8.3); Neutrophils Percent Auto 52.1 % (45-73); Platelet Count 279 X10*3/uL (160-400); Red Blood Count 4.75 X10*6/uL (4.60-5.80); Red Cell Distribution Width 12.5 % (11.0-16.0); White Blood Count 6.5 X10*3/uL (4.8-10.8)
[2021-10-24] MEDS: hydrOXYzine HCL 50 MG TABLET PO (11:39)
--- NOTE | 2021-10-24 11:39 | PM.PSYDC ---
DS: Providers Provider Date of Service: 10/24/21 Date of admission: 10/10/21 17:14 Primary care physician: Unknown Physician DS: Diagnosis Discharge Diagnosis (1) Bipolar I disorder with sisi: Status: Acute DS: Medications Discharge Medications Home Medications: Previous Rx's Medication Instructions Recorded albuterol sulfate 90 mcg/actuation 2 puff INHALATION Q4H PRN 30 Days 10/24/21 aerosol inhaler (ProAir HFA) #1 inhaler atenolol 100 mg tablet 100 mg PO DAILY 30 Days #30 tab 10/24/21 carbamazepine 200 mg 400 mg PO DAILY 30 Days #60 tab 10/24/21 tablet,extended release,12 hr carbamazepine 200 mg 600 mg PO BEDTIME 30 Days #90 tab 10/24/21 tablet,extended release,12 hr lorazepam 0.5 mg tablet (Ativan) 0.5 mg PO BID 5 Days #10 tab 10/24/21 lorazepam 1 mg tablet (Ativan) 1 mg PO BID 5 Days #10 tab 10/24/21 multivitamin (Daily-Lamont) 1 tab PO DAILY 30 Days #30 tab 10/24/21 olanzapine 10 mg tablet 10 mg PO DAILY 30 Days #30 tab 10/24/21 olanzapine 10 mg tablet 30 mg PO BEDTIME 30 Days #90 tab 10/24/21 trazodone 100 mg tablet 100 mg PO BEDTIME 30 Days #30 tab 10/24/21 Data Data Completed and Pending Completed studies during hospitalization [Text1]: 10/18/21 10/20/21 10/24/21 08:41 07:20 10:48 WBC 6.5 RBC 4.75 Hgb 15.0 Hct 43.2 MCV 90.9 MCH 31.6 MCHC 34.7 RDW 12.5 Plt Count 279 MPV 10.4 Immature Gran % (Auto) 0.8 H Neut % (Auto) 52.1 Lymph % (Auto) 35.3 Hooker % (Auto) 8.5 Eos % (Auto) 2.8 Baso % (Auto) 0.5 Lymph # (Auto) 2.3 Hooker # (Auto) 0.6 Eos # (Auto) 0.2 Baso # (Auto) 0.0 Abs Immat Gran (auto) 0.05 H Absolute Neuts (auto) 3.4 Absolute Nucleated RBC 0.000 Nucleated RBC % (auto) 0.0 Sodium 134 L 135 Potassium 5.2 H 5.5 H Chloride 104 104 Carbon Dioxide 24 24 Anion Gap 11 L 13 BUN 23 H 24 H Creatinine 0.97 0.91 Estim Creat Clear Calc 117.0 124.7 Estimated GFR > 60 > 60 Random Glucose 112 113 Calcium 9.8 9.6 Total Bilirubin Direct Bilirubin AST ALT Alkaline Phosphatase Total Protein Albumin Carbamazepine 10/24/21 10:48 WBC RBC Hgb Hct MCV MCH MCHC RDW Plt Count MPV Immature Gran % (Auto) Neut % (Auto) Lymph % (Auto) Hooker % (Auto) Eos % (Auto) Baso % (Auto) Lymph # (Auto) Hooker # (Auto) Eos # (Auto) Baso # (Auto) Abs Immat Gran (auto) Absolute Neuts (auto) Absolute Nucleated RBC Nucleated RBC % (auto) Sodium Pending Potassium Pending Chloride Pending Carbon Dioxide Pending Anion Gap Pending BUN Pending Creatinine Pending Estim Creat Clear Calc Pending Estimated GFR Pending Random Glucose Pending Calcium Pending Total Bilirubin Pending Direct Bilirubin Pending AST Pending ALT Pending Alkaline Phosphatase Pending Total Protein Pending Albumin Pending Carbamazepine Pending Imaging Diagnostic Imaging Impressions Head CT 10/10/21 15:55 IMPRESSION: No acute intracranial pathology. DS: Summary Hospital Course Hospital Course: per 10/11 admission note: pt left the hospital 2 days ago, had difficulty obtaining his prescriptions from the pharmacy, coped by buying some nips and magnesium supplement, then was found lying on the sidewalk in front of the pharmacy with no recollection of what had happened to get him there.? meds restarted at admission to the hospital.? pt appears to be in roughly the same clinical state as he was at discharge. Past Psychiatric History: h/o numerous psych hosps including one on M5 in 2011, M3 until 2 days [employer] (pt estimates 9 or 10 admissions). Dx of bipolar D/O. h/o care through [facility] and [facility]. h/o SI and SA via overdose. h/o superficial cutting and punching lewis during adolescence. Medical Evaluation Reviewed: Yes [facility] Family History: maternal side: anxiety, depression, alcohol dependence paternal side: schizoaffective disorder Social History: pt has one older brother and a younger brother and younger sister. ? all children have h/o having been removed from home by DCF at some point and having lived in foster care.? relationship with family members described as strained. 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 h/o CSS/TSS sober living programs.? he states he has not used barbiturates for 6 years and benzos or opioids for 4 years.? he states he drank alcohol 1 day only about 2 days ago as well as the day [employer], but does not drink regularly.? he reports regular use of cannabis, and his tox screen was positive for cannabis only. Trauma History: none noted Precis: from hospitalization that ended 2 days prior to the present hospitalization: started tegretol 200 BID 10/04.? pt states he cannot take lithium or depakote. scheduled ativan DCed 10/05 at pt request. DCed risperidone 1 BID at pt request 10/05 and started zyprexa 10 BID and 5 mg PRNs. 10/07/2021: Increased olanzapine to 10 am and 20 hs. 10/08: increased tegretol from 200 BID to 400 BID.? remains labile and disorganized. discharged 10/09 on 3-day notice. present hospitalization: readmitted 10/10 after being found unconscious on sidewalk in front of pharmacy where he had been unable to get his medications. 10/11: meds restarted/continued.? observe for stabilization. 10/12: appears more settled, less labile. 10/13 No change in medications 10/14 Switch Zyprexa to HS 30 mg. Increase Ibuprofen to 800 mg PRN for sciatica 10/15: no change.? labs ordered for 10/17. 10/16: increase tegretol to 400/600 and zyprexa to 04/07. 10/17: labs nml aside from elevated K.? recheck lytes tomorrow.? started ativan 1 TID for now in hopes tegretol increase will bear fruit soon. 10/18: K trending down.? continue current mgmt. 10/19: check lytes tomorrow for down-trending potassium and up-trending BUN.? concern tegretol is starting a hyponatremia.? keep meds as they are pending repeat labs. 10/20: sodium normalized but potassium elevated.? will recheck labs friday.? stabilizing. 10/21: no change to regimen. 10/22 continue current medications. 10/23: continue current medications. Time Spent with Patient Time attestation: Total time spent providing and/or coordinating discharge services: Discharge Plan Discharge Patient Disposition: Residential Discharge Diagnosis: Bipolar I Disorder, MRE Manic Referrals: Kalpana Herrera (therapy intake) [Other] - 10/26/21 4:00 pm (In-office appointment - if you need to change to telehealth please call ahead of time to let them know. Once you attend the therapy intake, your therapist will schedule an appointment for medication management) Department of Mental Health ([facility]) [Other] (Application for services submitted. They should be reaching out by phone within 1-2 weeks to conduct an assessment and discuss services. Feel free to call to check on the status of your application if you do not receive a call) [facility] [Other] - 10/24/21 (Go straight to the residential from the hospital, once you are checked in and receive an orientation, you can last picker your meds at the [facility] pharmacy on [address]) [facility] [Physician] - 1 Week (Walk In hours are Friday through Friday 8:30am and 4pm) Discharge Medications: New multivitamin [Daily-Lamont] Tablet 1 tab PO DAILY 30 Days Qty: 30 0RF olanzapine 10 mg Tablet 30 mg PO BEDTIME 30 Days Qty: 90 0RF carbamazepine 200 mg Tablet Extended Release 12 Hr 600 mg PO BEDTIME 30 Days Qty: 90 0RF lorazepam [Ativan] 0.5 mg tablet 0.5 mg PO BID 5 Days Qty: 10 0RF Rx Instructions: take after finished with ativan 1 mg twice daily for 5 days lorazepam [Ativan] 1 mg tablet 1 mg PO BID 5 Days Qty: 10 0RF carbamazepine 200 mg Tablet Extended Release 12 Hr 400 mg PO DAILY 30 Days Qty: 60 0RF olanzapine 10 mg tablet 10 mg PO DAILY 30 Days Qty: 30 0RF Continued atenolol 100 mg tablet 100 mg PO DAILY 30 Days Qty: 30 0RF trazodone 100 mg Tablet 100 mg PO BEDTIME 30 Days Qty: 30 0RF albuterol sulfate [ProAir HFA] 90 mcg/actuation HFA aerosol inhaler 2 puff inhalation Q4H PRN (Reason: wheezing) 30 Days Qty: 1 0RF Discontinued nicotine (polacrilex) 2 mg Gum 4 mg buccal Q1H PRN (Reason: Nicotine Cravings) 30 Days Qty: 180 0RF carbamazepine 200 mg Tablet Extended Release 12 Hr 400 mg PO BID 30 Days Qty: 120 0RF nicotine 21 mg/24 hr Patch 24 Hour 21 mg transdermal DAILY 28 Days Qty: 28 0RF olanzapine [Zyprexa] 20 mg tablet 20 mg PO BEDTIME 30 Days Qty: 30 0RF olanzapine [Zyprexa] 10 mg tablet 10 mg PO DAILY 30 Days Qty: 30 0RF Discharge Orders: Discharge Order (Routine); Ordered 10/24/21 Ordered By: Rasta Max Diet: advance to usual diet Activity on Discharge: As tolerated Stand Alone Forms: Patient Portal Discharge page, Community Support Care Plan Goals: maintain safe and sober living in the outpatient treatment setting Health Concerns: tobacco use Plan of Treatment: take medications as prescribed, attend appointments as scheduled Assessment: not at imminent risk of harm to self or others
[2021-10-24] MEDS: Acetaminophen 325 MG TABLET 650 MG PO (11:40)
[2021-10-24] MEDS: Albuterol Sulfate 90 MCG 8 GM INHALER 2 PUFF INHALE (11:41)
[2021-10-24 11:44] LABS: Alanine Aminotransferase 34 U/L (0-40); Albumin Level 4.5 g/dL (3.5-5.0); Alkaline Phosphatase 68 U/L (39-117); Anion Gap 13 (12-20); Aspartate Amino Transferase 21 U/L (5-37); Bilirubin Direct < 0.2 mg/dL (0.0-0.5); Bilirubin Total 0.2 mg/dL (0.0-1.0); Blood Urea Nitrogen 20 mg/dL (9-16); Calcium 9.7 mg/dL (8.4-10.2); Carbon Dioxide 25 mmol/L (22-29); Chloride 103 mmol/L (96-108); Creatinine Clr Calc Pharmacy 124.7; Estimated Glomerular Filt Rate > 60; Glucose Random 98 mg/dL (60-115); Potassium 4.9 mmol/L (3.3-5.1); Sodium 136 mmol/L (135-145); Total Protein 7.4 g/dL (6.5-8.0)
--- NOTE | 2021-10-24 12:02 | PC.NURSE ---
Nnamdi is alert, fully oriented, pleasant and cooperative with discharge process. He verbalizes understanding of discharge plan including upcoming appointments and discharge medication regime. He verbalizes intent to attend appointments and comply wit medications. I contacted [facility] on [address] [facility] [place] to confirm that his discharge medications are in stock and they do have his insurance information on file. Ayaz denies ideation, plan or intent to harm self or others. He denies physical complaint.
[2021-10-24 12:14] LABS: Carbamazepine Tegretol 10.1 mcg/mL (5.0-12.0)
[2021-10-24 12:29] LABS: COVID-19 Test Negative (Negative); IDNOW Serial# 9DB6401D
[2021-10-24] MEDS: Butalb/Acetamin/Caff 50/325/40 TABLET 1 TAB PO (14:12)
--- NOTE | 2021-10-24 15:01 | P.DS_ITS ---
DS: Providers Provider Date of Service: 10/24/21 Date of admission: 10/10/21 17:14 Primary care physician: Unknown Physician DS: Diagnosis Discharge Diagnosis (1) Bipolar I disorder with sisi: Status: Acute DS: Medications Discharge Medications Home Medications: Previous Rx's Medication Instructions Recorded albuterol sulfate 90 mcg/actuation 2 puff INHALATION Q4H PRN 30 Days 10/24/21 aerosol inhaler (ProAir HFA) #1 inhaler atenolol 100 mg tablet 100 mg PO DAILY 30 Days #30 tab 10/24/21 carbamazepine 200 mg 400 mg PO DAILY 30 Days #60 tab 10/24/21 tablet,extended release,12 hr carbamazepine 200 mg 600 mg PO BEDTIME 30 Days #90 tab 10/24/21 tablet,extended release,12 hr lorazepam 0.5 mg tablet (Ativan) 0.5 mg PO BID 5 Days #10 tab 10/24/21 lorazepam 1 mg tablet (Ativan) 1 mg PO BID 5 Days #10 tab 10/24/21 multivitamin (Daily-Lamont) 1 tab PO DAILY 30 Days #30 tab 10/24/21 olanzapine 10 mg tablet 10 mg PO DAILY 30 Days #30 tab 10/24/21 olanzapine 10 mg tablet 30 mg PO BEDTIME 30 Days #90 tab 10/24/21 trazodone 100 mg tablet 100 mg PO BEDTIME 30 Days #30 tab 10/24/21 Mental Status Exam Mental Status Exam Narrative: pt cooperative, pleasant. non-pressured speech, organized thoughts. appropriately dressed and groomed. slight PMA of pacing the halls. affect constricted, normo-intense, non-labile. mood good. positive. no SI/HI/AVH. Data Data Completed and Pending Completed studies during hospitalization [Text1]: 10/18/21 10/20/21 10/24/21 08:41 07:20 10:48 WBC 6.5 RBC 4.75 Hgb 15.0 Hct 43.2 MCV 90.9 MCH 31.6 MCHC 34.7 RDW 12.5 Plt Count 279 MPV 10.4 Immature Gran % (Auto) 0.8 H Neut % (Auto) 52.1 Lymph % (Auto) 35.3 [place] % (Auto) 8.5 Eos % (Auto) 2.8 Baso % (Auto) 0.5 Lymph # (Auto) 2.3 [place] # (Auto) 0.6 Eos # (Auto) 0.2 Baso # (Auto) 0.0 Abs Immat Gran (auto) 0.05 H Absolute Neuts (auto) 3.4 Absolute Nucleated RBC 0.000 Nucleated RBC % (auto) 0.0 Sodium 134 L 135 Potassium 5.2 H 5.5 H Chloride 104 104 Carbon Dioxide 24 24 Anion Gap 11 L 13 BUN 23 H 24 H Creatinine 0.97 0.91 Estim Creat Clear Calc 117.0 124.7 Estimated GFR > 60 > 60 Random Glucose 112 113 Calcium 9.8 9.6 Total Bilirubin Direct Bilirubin AST ALT Alkaline Phosphatase Total Protein Albumin Carbamazepine COVID-19 ([facility]) COVID-19 Clin Com 10/24/21 10/24/21 10:48 12:00 WBC RBC Hgb Hct MCV MCH MCHC RDW Plt Count MPV Immature Gran % (Auto) Neut % (Auto) Lymph % (Auto) [place] % (Auto) Eos % (Auto) Baso % (Auto) Lymph # (Auto) [place] # (Auto) Eos # (Auto) Baso # (Auto) Abs Immat Gran (auto) Absolute Neuts (auto) Absolute Nucleated RBC Nucleated RBC % (auto) Sodium 136 Potassium 4.9 Chloride 103 Carbon Dioxide 25 Anion Gap 13 BUN 20 H Creatinine 0.91 Estim Creat Clear Calc 124.7 Estimated GFR > 60 Random Glucose 98 Calcium 9.7 Total Bilirubin 0.2 Direct Bilirubin < 0.2 AST 21 ALT 34 Alkaline Phosphatase 68 Total Protein 7.4 Albumin 4.5 Carbamazepine 10.1 COVID-19 ([facility]) Negative COVID-19 Clin Com See Note Imaging Diagnostic Imaging Impressions Head CT 10/10/21 15:55 IMPRESSION: No acute intracranial pathology. DS: Summary Hospital Course Hospital Course: per 10/11 admission note: pt left the hospital 2 days ago, had difficulty obtaining his prescriptions from the pharmacy, coped by buying some nips and magnesium supplement, then was found lying on the sidewalk in front of the pharmacy with no recollection of what had happened to get him there.? meds restarted at admission to the hospital.? pt appears to be in roughly the same clinical state as he was at discharge. 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 Dx of bipolar D/O. h/o care [facility]. h/o SI and SA via overdose. h/o superficial cutting and punching lewis during adolescence. Medical Evaluation Reviewed: Yes PMFSH Family History: maternal side: anxiety, depression, alcohol dependence paternal side: schizoaffective disorder Social History: pt has one older brother and a younger brother and younger sister. ? all children have h/o having been removed from home by DCF at some point and having lived in foster care.? relationship with family members raheel cribed as strained. 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 h/o CSS/TSS sober living programs.? he states he has not used barbiturates for 6 years and benzos or opioids for 4 years.? 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 he reports regular use of cannabis, and his tox screen was positive for cannabis only. Trauma History: none noted Precis: from hospitalization that ended 2 days prior to the present hospitalization: started tegretol 200 BID 10/04.? pt states he cannot take lithium or depakote. scheduled ativan DCed 10/05 at pt request. DCed risperidone 1 BID at pt request 10/05 and started zyprexa 10 BID and 5 mg PRNs. 10/07/2021: Increased olanzapine to 10 am and 20 hs. 10/08: increased tegretol from 200 BID to 400 BID.? remains labile and disorganized. discharged 10/09 on 3-day notice. present hospitalization: readmitted 10/10 after being found unconscious on sidewalk in front of pharmacy where he had been unable to get his medications. 10/11: meds restarted/continued.? observe for stabilization. 10/12: appears more settled, less labile. 10/13 No change in medications 10/14 Switch Zyprexa to HS 30 mg. Increase Ibuprofen to 800 mg PRN for sciatica 10/15: no change.? labs ordered for 10/17. 10/16: increase tegretol to 400/600 and zyprexa to 10/30. 10/17: labs nml aside from elevated K.? recheck lytes tomorrow.? started ativan 1 TID for now in hopes tegretol increase will bear fruit soon. 10/18: K trending down.? continue current mgmt. 10/19: check lytes tomorrow for down-trending potassium and up-trending BUN.? concern tegretol is starting a hyponatremia.? keep meds as they are pending repeat labs. 10/20: sodium normalized but potassium elevated.? will recheck labs friday.? stabilizing. 10/21: no change to regimen. 10/22 continue current medications. 10/23: continue current medications. 10/24: labs WNL, tegretol dose 10.1. discharged to halfway per pt preference. much improved from admission. Time Spent with Patient Time attestation: Total time spent providing and/or coordinating discharge services: Time spent: Greater than 30 minutes Discharge Plan Discharge Patient Disposition: Correction Discharge Diagnosis: Bipolar I Disorder, MRE Manic Referrals: Kalpana Herrera (therapy intake) [Other] - 10/26/21 4:00 pm (In-office appointment - if you need to change to telehealth please call ahead of time to let them know. Once you attend the therapy intake, your therapist will schedule an appointment for medication management) Department of Mental Health ([facility]) [Other] (Application for services submitted. They should be reaching out by phone within 1-2 weeks to conduct an assessment and discuss services. Feel free to call to check on the status of your appl ication if you do not receive a call) [facility] [Other] - 10/24/21 (Go straight to the halfway from the hospital, once you are checked in and receive an orientation, you can picker and packer yo ur meds at the [facility] pharmacy on ) [place] [Physician] - 1 Week (Walk In hours are Friday through Friday 8:30am and 4pm) Discharge Medications: New multivitamin [Daily-Lamont] Tablet 1 tab PO DAILY 30 Days Qty: 30 0RF olanzapine 10 mg Tablet 30 mg PO BEDTIME 30 Days Qty: 90 0RF carbamazepine 200 mg Tablet Extended Release 12 Hr 600 mg PO BEDTIME 30 Days Qty: 90 0RF lorazepam [Ativan] 0.5 mg tablet 0.5 mg PO BID 5 Days Qty: 10 0RF Rx Instructions: take after finished with ativan 1 mg twice daily for 5 days lorazepam [Ativan] 1 mg tablet 1 mg PO BID 5 Days Qty: 10 0RF carbamazepine 200 mg Tablet Extended Release 12 Hr 400 mg PO DAILY 30 Days Qty: 60 0RF olanzapine 10 mg tablet 10 mg PO DAILY 30 Days Qty: 30 0RF Continued atenolol 100 mg tablet 100 mg PO DAILY 30 Days Qty: 30 0RF trazodone 100 mg Tablet 100 mg PO BEDTIME 30 Days Qty: 30 0RF albuterol sulfate [ProAir HFA] 90 mcg/actuation HFA aerosol inhaler 2 puff inhalation Q4H PRN (Reason: wheezing) 30 Days Qty: 1 0RF Discontinued nicotine (polacrilex) 2 mg Gum 4 mg buccal Q1H PRN (Reason: Nicotine Cravings) 30 Days Qty: 180 0RF carbamazepine 200 mg Tablet Extended Release 12 Hr 400 mg PO BID 30 Days Qty: 120 0RF nicotine 21 mg/24 hr Patch 24 Hour 21 mg transdermal DAILY 28 Days Qty: 28 0RF olanzapine [Zyprexa] 20 mg tablet 20 mg PO BEDTIME 30 Days Qty: 30 0RF olanzapine [Zyprexa] 10 mg tablet 10 mg PO DAILY 30 Days Qty: 30 0RF Discharge Orders: Discharge Order (Routine); Ordered 10/24/21 Ordered By: Rasta Max Diet: advance to usual diet Activity on Discharge: As tolerated Stand Alone Forms: Patient Portal Discharge page, Community Support Care Plan Goals: maintain safe and sober living in the outpatient treatment setting Health Concerns: tobacco use Plan of Treatment: take medications as prescribed, attend appointments as scheduled Assessment: not at imminent risk of harm to self or others
== END 2021-10-24 15:33 | disposition home or self-care (01) | DRG 753 ==
LOC: HO.ED 10:47 → HO.PADLT16 17:25
PROVIDERS: Emergency Medicine; Physician Assistant Medical; Admitting Provider Psychiatry & Neurology Psychiatry; Emergency Provider Student in an Organized Health Care Education/Training Program; Visit Provider Psychiatry & Neurology Psychiatry
DX: F31.10 Bipolar disorder, current episode manic without psychotic features, unspecified (principal); F17.210 Nicotine dependence, cigarettes, uncomplicated; Z71.6 Tobacco abuse counseling; Z20.822 Contact with and (suspected) exposure to COVID-19; Z88.2 Allergy status to sulfonamides; Z79.899 Other long term (current) drug therapy
CPT/HCPCS: 36415; 70450; 80048; 80076; 80156; 80307; 85025; 87635; 93005; 99285

== ENCOUNTER 2021-10-28 16:58 | Inpatient (IN) | payer OTHER, SELFPAY ==
[2021-10-28 17:05] VITALS: BP 143/93; PULSE 97; RESP 18; TEMP 36.6; O2SAT 98; BMI 26.6
--- NOTE | 2021-10-28 17:20 | ED.PSYCH ---
HPI - Psych General Chief Complaint: Psychiatric Symptoms Stated Complaint: SI Source: patient Mode of arrival: ambulatory Limitations: no limitations History of Present Illness HPI Narrative: 31-year-old male presents for crisis consult. States that he has not been taking his medications because insurance has not covered. Has suicidal ideations, no specific plan but does not feel safe at this time. Discharged from [facility] 4 days ago per MD complaint: suicidal ideation, feels depressed and anxiety Onset (ago): day(s) Duration: constant History of same: Yes Relieving factors: medication Exacerbating factors: other (Medication noncompliance due to insurance disparity) Context: not taking psychiatric medications Associated psychiatric symptoms: depression and suicidal ideation Associated symptoms: denies other symptoms Treatments prior to arrival: none If self harm: admits thoughts of self harm Related Data Previous Rx's Medication Instructions Recorded albuterol sulfate 90 mcg/actuation 2 puff INHALATION Q4H PRN 30 Days 10/24/21 aerosol inhaler (ProAir HFA) #1 inhaler atenolol 100 mg tablet 100 mg PO DAILY 30 Days #30 tab 10/24/21 carbamazepine 200 mg 400 mg PO DAILY 30 Days #60 tab 10/24/21 tablet,extended release,12 hr carbamazepine 200 mg 600 mg PO BEDTIME 30 Days #90 tab 10/24/21 tablet,extended release,12 hr lorazepam 0.5 mg tablet (Ativan) 0.5 mg PO BID 5 Days #10 tab 10/24/21 lorazepam 1 mg tablet (Ativan) 1 mg PO BID 5 Days #10 tab 10/24/21 multivitamin (Daily-Lamont) 1 tab PO DAILY 30 Days #30 tab 10/24/21 olanzapine 10 mg tablet 10 mg PO DAILY 30 Days #30 tab 10/24/21 olanzapine 10 mg tablet 30 mg PO BEDTIME 30 Days #90 tab 10/24/21 trazodone 100 mg tablet 100 mg PO BEDTIME 30 Days #30 tab 10/24/21 Allergies Allergy/AdvReac Type Severity Reaction Status Date / Time Sulfa (Sulfonamide Allergy Unknown RASH Verified 10/28/21 17:05 Antibiotics) Review of Systems Review of Systems: Constitutional: No Fever, No Chills ENT/Mouth: No sore throat, No Rhinorrhea Eyes: No Eye Pain, No Swelling, No Redness Cardiovascular: No Chest Pain, No SOB Respiratory: No Cough, No Sputum Gastrointestinal: No Nausea, No Vomiting, No Diarrhea, No abdominal Pain Genitourinary: No Dysuria, No Hematuria Musculoskeletal: No joint pain, No Myalgias, No Joint Swelling Skin: No Skin Lesions, No rash Neuro: No Weakness, No Numbness, No Loss of Consciousness, No Dizziness, No Headache Psych: Positive Anxiety, positive Depression, positive SI Heme/Lymph: No Bruising, No Bleeding,No Lymphadenopathy Endocrine: No Polyuria, No Polydipsia Yes all other systems are reviewed and are negative [facility] Past Medical History Attestation statement: The following information was validated with the patient. Source: old records reviewed Social History Social History Household Members: None Housing: Homeless Do you presently have visiting nurse or other home services: No Alcohol intake: current Patient Tobacco Use Status: Current everyday Tobacco user Tobacco use type: Cigarette Cigarette Packs Per Day: 0.5 Cigarettes Per Day: 10.0 e-Cigarette/Vaping Use: Never Used Second Hand Smoke Exposure: No Substance Use Type: Marijuana Advance Directives: No Advance Directives Information Provided: Yes service: No Sexual orientation: Did not discuss. Physical Exam Vital Signs: Vital Signs: Last Vital Signs Temp 98 F 10/28/21 17:05 Pulse 86 10/28/21 19:32 Resp 18 10/28/21 19:32 BP 140/88 H 10/28/21 19:32 Pulse Ox 99 10/28/21 19:32 BMI result Body Mass Index 26.6 Appearance: Alert. Oriented X3. Moderate emotional distress. Eyes: Pupils equal, round and reactive to light. ENT: Pharynx normal. Neck: Normal inspection. Neck supple. CVS: Normal heart rate and rhythm. Pulses normal. Respiratory: No respiratory distress. Breath sounds normal. Abdomen: Soft and nontender. Skin: Skin warm and dry. Normal skin color. Normal skin turgor. Extremities: No lower extremity edema. Gait well balanced well coordinated. Neuro: No motor deficit. No sensory deficit. Cranial nerves 2-12 intact. Course Course Course Narrative: 31-year-old male presents for crisis evaluation. Discharge from on 10/24/2021. 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 Patient is suicidal but does not disclose a plan. Appears to be in emotional distress, but is answering questions politely and appropriately and is cooperative at this time. Will order crisis consult, and basic labs 22:48 physician observation started at this time. Crisis consult pending. Psych consult pending. MDM - Psych Differential Diagnosis Differential diagnosis: Likely acute psychosis, suicidal ideation, depression and acute anxiety Medical Records Attestation: I reviewed the patient's medical records. Lab Data Attestation: I reviewed the patient's lab results. Labs: Lab Results 10/28/21 10/28/21 Range/Units 17:37 17:37 Urine Opiates Screen Not Detected (Not Detect) Urine Fentanyl Screen Not Detected (Not Detect) Ur Barbiturates Screen Not Detected (Not Detect) Ur Phencyclidine Scrn Not Detected (Not Detect) Ur Amphetamines Screen Not Detected (Not Detect) U Benzodiazepines Scrn POSITIVE H (Not Detect) Urine Cocaine Screen Not Detected (Not Detect) U Marijuana (THC) Screen POSITIVE H (Not Detect) COVID-19 ([facility]) Negative (Negative) COVID-19 Clin Com See Note Discharge Plan Discharge Clinical Impression: Suicidal ideation, Depression, Bipolar disorder Patient Disposition: Still a Patient Prescriptions: No Action multivitamin [Daily-Lamont] Tablet 1 tab PO DAILY 30 Days Qty: 30 0RF olanzapine 10 mg Tablet 30 mg PO BEDTIME 30 Days Qty: 90 0RF carbamazepine 200 mg Tablet Extended Release 12 Hr 600 mg PO BEDTIME 30 Days Qty: 90 0RF lorazepam [Ativan] 0.5 mg tablet 0.5 mg PO BID 5 Days Qty: 10 0RF Rx Instructions: take after finished with ativan 1 mg twice daily for 5 days atenolol 100 mg tablet 100 mg PO DAILY 30 Days Qty: 30 0RF trazodone 100 mg Tablet 100 mg PO BEDTIME 30 Days Qty: 30 0RF albuterol sulfate [ProAir HFA] 90 mcg/actuation HFA aerosol inhaler 2 puff inhalation Q4H PRN (Reason: wheezing) 30 Days Qty: 1 0RF lorazepam [Ativan] 1 mg tablet 1 mg PO BID 5 Days Qty: 10 0RF Rx Instructions: take for 5 days then continue on to 0.5 mg po bid for 5 days carbamazepine 200 mg Tablet Extended Release 12 Hr 400 mg PO DAILY 30 Days Qty: 60 0RF olanzapine 10 mg tablet 10 mg PO DAILY 30 Days Qty: 30 0RF
[2021-10-28] MEDS: Acetaminophen 325 MG TABLET 650 MG PO (18:20)
[2021-10-28] MEDS: OLANZapine 10 MG TABLET 30 MG PO (18:23)
[2021-10-28] MEDS: Nicotine 21 MG PATCH.TD24 TRANSDERMA (18:23)
[2021-10-28 18:32] LABS: Amphetamine Screen Urine Not Detected (Not Detect); Barbiturates, Urine Not Detected (Not Detect); Benzodiazepines Screen Urine POSITIVE (Not Detect); Cannabinoid Screen Urine POSITIVE (Not Detect); Cocaine Screen Urine Not Detected (Not Detect); Fentanyl, urine Not Detected (Not Detect); Opiate Screen Urine Not Detected (Not Detect); Phencyclidine Screen Urine Not Detected (Not Detect)
[2021-10-28 18:33] LABS: COVID-19 Test Negative (Negative); IDNOW Serial# 16C4AD1C
[2021-10-28] MEDS: carBAMazepine ER 200 MG TAB.ER.12H 400 MG PO (19:17)
[2021-10-28] MEDS: atenoloL 100 MG TABLET PO (19:30)
[2021-10-28 19:32] VITALS: BP 140/88; PULSE 86; RESP 18; O2SAT 99
[2021-10-28] MEDS: carBAMazepine ER 200 MG TAB.ER.12H 600 MG PO (20:17)
[2021-10-28] MEDS: traZODone HCL 100 MG TABLET PO (20:17)
[2021-10-28] MEDS: LORazepam 1 MG TABLET PO (20:17)
[2021-10-29 04:36] VITALS: BP 142/83; PULSE 75; RESP 16; TEMP 36.7; O2SAT 99
--- NOTE | 2021-10-29 06:40 | PC.NURSE ---
Patient slept through the night, no distress observed/reported, medication compliant, awaiting BHN evaluation in the morning, behavior non concerning, VSS, will continue to monitor.
--- NOTE | 2021-10-29 07:20 | PC.NURSE ---
patient appears to remain asleep at present respirations are even and unlabored patient appears in no distress
[2021-10-29 09:48] VITALS: BP 107/83; PULSE 75; RESP 16; TEMP 36.8; O2SAT 99
[2021-10-29] MEDS: OLANZapine 10 MG TABLET PO (09:48)
[2021-10-29] MEDS: Multivitamin TABLET 1 TAB PO (09:48)
[2021-10-29] MEDS: atenoloL 100 MG TABLET PO (09:48)
[2021-10-29] MEDS: carBAMazepine ER 200 MG TAB.ER.12H 400 MG PO (09:48)
[2021-10-29] MEDS: LORazepam 1 MG TABLET PO ×2 (09:48→21:05)
--- NOTE | 2021-10-29 12:56 | P.CNPS_ITS ---
History of Present Illness Date of Service: 10/29/21 Chief Complaint: SI Reason for Consult: med assessment Sources of Information: patient interviewed, chart reviewed and crisis/core team assessment reviewed HPI Narrative: 31-year-old male self presents to ED, off his meds since pharmacy would not refill for several more days and becoming depressed with SI; Recently discharged from 3 last week. Pt reports off meds was depressed with SI, no plan. Back on meds he says he's feeing much better; denies SI/HI or AVH. Pt is glad to hear that Zyprexa and Tegretol will be ready on 10/31 saying it makes big difference in his stability. 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 Dx of bipolar D/O. [facility]. h/o SI and SA via overdose. h/o superficial cutting and punching lewis during adolescence. Medical Evaluation Reviewed: Yes [facility] Family History: maternal side: anxiety, depression, alcohol dependence paternal side: schizoaffective disorder Social History: pt has one older brother and a younger brother and younger s ister. all children have h/o having been removed from home by DCF at some point and having lived in foster care. relationship with family members described as strained. Substance History: currently cannabis Trauma History: reports hx of; no details Diagnostics Vital Signs (24Hr): Vital Signs - 24 hr 10/28/21 17:05 10/28/21 19:32 10/29/21 04:36 Temperature 98 F 98.0 F Pulse Rate 97 86 75 Respiratory Rate 18 18 16 Blood Pressure 143/93 H 140/88 H 142/83 H Pulse Oximetry 98 99 99 10/29/21 09:48 Temperature 98.3 F Pulse Rate 75 Respiratory Rate 16 Blood Pressure 107/83 Pulse Oximetry 99 BMI result Body Mass Index 26.6 Labs Labs: Laboratory Results - last 48 hr 10/28/21 10/28/21 17:37 17:37 Urine Opiates Screen Not Detected Urine Fentanyl Screen Not Detected Ur Barbiturates Screen Not Detected Ur Phencyclidine Scrn Not Detected Ur Amphetamines Screen Not Detected U Benzodiazepines Scrn POSITIVE H Urine Cocaine Screen Not Detected U Marijuana (THC) Screen POSITIVE H COVID-19 ([facility]) Negative COVID-19 Clin Com See Note Mental Status Exam Mental Status Exam Narrative: Pt is alert and oriented; behavior is cooperative, friendly and calm; patient is not in distress; dressed in hospital gown; with adequate hygiene; mood is de scribed as better and affect congruent; eye contact appropriate; Speech is normal rate, volume and prosody and not pressured; no psychomotor agitation/retardation present; thought process is organized and goal directed; Thought content is on tx; otherwise pertinent to relevant topics and without any delusional content, paranoid ideations or grandiosity; denies any SI/HI. There is no evidence of perceptual disturbance. Patients insight and judgment appear intact. Medications Medications Current Medications Albuterol Sulfate (Albuterol Sulfate 90 Mcg 8 Gm Inhaler) 2 puff INHALE Q4H PRN PRN Reason: wheezing Atenolol (Atenolol 100 Mg Tablet) 100 mg PO DAILY PENDING SALE TO [facility]; Protocol Last Admin: 10/29/21 09:48 Dose: 100 mg Documented by: Carbamazepine (Carbamazepine Er 200 Mg Tab.Er.12h) 400 mg PO DAILY DEE DEE Last Admin: 10/29/21 09:48 Dose: 400 mg Documented by: Carbamazepine (Carbamazepine Er 200 Mg Tab.Er.12h) 600 mg PO BEDTIME DEE DEE Last Admin: 10/28/21 20:17 Dose: 600 mg Documented by: Lorazepam (Lorazepam 1 Mg Tablet) 1 mg PO BID DEE DEE Last Admin: 10/29/21 09:48 Dose: 1 mg Documented by: Multivitamins/Vitamin C (Multivitamin Tablet) 1 tab PO DAILY DEE DEE Last Admin: 10/29/21 09:48 Dose: 1 tab Documented by: Olanzapine (Olanzapine 10 Mg Tablet) 10 mg PO DAILY DEE DEE Last Admin: 10/29/21 09:48 Dose: 10 mg Documented by: Olanzapine (Olanzapine 10 Mg Tablet) 30 mg PO BEDTIME DEE DEE Trazodone HCl (Trazodone Hcl 100 Mg Tablet) 100 mg PO BEDTIME PENDING SALE TO [facility] Last Admin: 10/28/21 20:17 Dose: 100 mg Documented by: Allergies Allergies Allergy/AdvReac Type Severity Reaction Status Date / Time Sulfa (Sulfonamide Allergy Unknown RASH Verified 10/28/21 17:05 Antibiotics) Assessment & Plan Assessment & Plan (1) Bipolar disorder: Status: Acute Code(s): F31.9 - Bipolar disorder, unspecified Plan 31-year-old male self presents to ED, off his meds since pharmacy would not refill for several more days and becoming depressed with SI; Recently discharged from [facility] last week. Pt reports off meds was depressed with SI, no plan. Back on meds he says he's feeing much better; denies SI/HI or AVH. Pt is glad to hear that Zyprexa and Tegretol will be ready on 10/31 saying it makes big difference in his stability. Pt reports nightmares, most every night from hx of trauma; discussed Prazosin, risks/side-effects and pt would like to try (BP WNL) PLAN: continue home meds Start Prazosin 1mg for nightmares ED staff working on Dispo pt Zyprexa, atenolol Tegretol available on 10/31 pt left Trazodone, albuterol, ativan at [facility]; Care team aware. I spent minutes with the patient and/or on the patient floor today, greater than?50% of which was spent counseling/coordinating care. Patient educated on: medication risk/benefits Informed Consent: understands
--- NOTE | 2021-10-29 14:24 | PC.NURSE ---
Pt seen this date for individual OT tx. Upon approach pt presents bright and pleasant however reports he is experiencing some anxiety. Pt provided with educational material with regard to deep breathing or diaphragmatic breathing technique, it's benefits, and physiologic response. Pt demonstrates fair understanding of technique and positive result as pt reports decreased anxiety following breathing exercise. Pt provided with alternate activities word searches and coloring pages as pt reports I do get sick of watching TV sometimes .
[2021-10-29] MEDS: Nicotine 21 MG PATCH.TD24 TRANSDERMA (18:41)
[2021-10-29] MEDS: traZODone HCL 100 MG TABLET PO (21:05)
[2021-10-29] MEDS: OLANZapine 10 MG TABLET 30 MG PO (21:05)
[2021-10-29] MEDS: carBAMazepine ER 200 MG TAB.ER.12H 600 MG PO (21:05)
[2021-10-30 05:23] VITALS: BP 114/72; PULSE 72; RESP 16; TEMP 36.8; O2SAT 98
--- NOTE | 2021-10-30 06:37 | PC.NURSE ---
Patient slept through the night, no distress observed/reported, medication compliant, awaiting BHN evaluation in the morning, behavior non concerning, VSS, pending M3 admission per report, will continue to monitor
[2021-10-30 08:11] VITALS: BP 114/58; PULSE 76; RESP 20; O2SAT 96
[2021-10-30] MEDS: carBAMazepine ER 200 MG TAB.ER.12H 400 MG PO (08:17)
[2021-10-30] MEDS: Multivitamin TABLET 1 TAB PO (08:17)
[2021-10-30] MEDS: OLANZapine 10 MG TABLET PO (08:17)
[2021-10-30] MEDS: atenoloL 100 MG TABLET PO (08:17)
[2021-10-30] MEDS: LORazepam 1 MG TABLET PO ×2 (08:18→21:24)
[2021-10-30] MEDS: Acetaminophen 325 MG TABLET 650 MG PO (10:36)
--- NOTE | 2021-10-30 11:52 | PC.NURSE ---
PT HAS BEEN CALM COOPERATIVE TOLERATING PO, AMB AROUND POD. REPORT GIVEN PT WILL BE GOING TO M3
[2021-10-30 12:31] VITALS: BP 121/70; PULSE 71; RESP 18; TEMP 36.6; O2SAT 98
[2021-10-30 13:02] VITALS: BMI 26.7
--- NOTE | 2021-10-30 14:09 | PC.NURSE ---
Patient is a 31 year old male admitted from [facility] ED on a CV with a diagnosis of Schizoaffective disorder. Patient self presented to the ED w/ SI, stating that he had been unable to fill his medications after being discharged from on 10/24/21 due to problems with his insurance. Past medical history includes asthma and migraines. Patient was seen in the ED by psychiatry and resumed on medications while in the ED. On arrival to the unit, patient was dressed in a randal, pleasant, affect even. He denies SI/HI, he denied AH/VH. He reports That his goal for admission is I want to do whatever needs to be done so that I can be stable... I'm not leaving this place until I get EBT or food stamps...now it's becoming irritating.
--- NOTE | 2021-10-30 18:22 | P.HPPS_ITS ---
HPI Date of Service: 10/30/21 Chief Complaint: Depression/SI Sources of Information: patient interviewed, chart reviewed and crisis/core team assessment reviewed HPI Subjective Notes: Thomas Warning and Conditional Voluntary Healthcare Proxy: No Guardianship: No Medical Problems Affecting Mental Status: No Narrative: Nnamdi is a 31 y.o. male who carries a dx of schizoaffective disorder. He presented to [facility] ED on 10/28/21?due to non-adherence on medications due to insurance issues since his discharge from on 10/24/2021. Pt endorsed SI but denied plan or intent. Endorsed paranoid ideations. Pt was discharged to the [facility] and he walked to [facility] from [place] in almost 100 degree heat. I evaluated the pt this evening and upon interview he reports he liked the meds he was recently discharged on, ?I cant complain? for his meds. He says ?it was a weird situation,? in that ?I went to go get my meds and they?re telling me what the doctor assured me wouldn?t happen.? Pt says he had increased anxiety off his medications, felt like ?I started decompensating,? paranoid, ?wanting to take myself out, why am I here?? He currently denies SI. Pt says he wanted ?to get back here because its where I feel safe.? At this time, pt says ?I feel calm and safe.? Denies any self harm. Per pt, he has anxiety at baseline and ?I get overwhelmed when good or bad things happen.? He denies A/VH. Says sleep is good with medication. Past Psychiatric History: Recent discharge from on 10/24/21 for paranoia, SI h/o numerous psych hosps including one on M5 in 2011, M3 until 2 days [employer] (pt estimates 9 or 10 admissions). Dx of bipolar D/O. h/o care through [facility] and [facility]. h/o SI and SA via overdose. h/o superficial cutting and punching lewis during adolescence. Medical Evaluation Reviewed: Yes PMF Family History: maternal side: anxiety, depression, alcohol dependence paternal side: schizoaffective disorder Social History: pt has one older brother and a younger brother and younger sister. all children have h/o having been removed from home by DCF at some point and having lived in foster care. relationship with family members described as strained. Substance History: Utox positive for benzos and cannabis Trauma History: reports hx of; no details Diagnostics Vital Signs (24Hr): Vital Signs - 24 hr 10/30/21 05:23 10/30/21 08:11 10/30/21 12:31 Temperature 98.3 F 97.8 F Pulse Rate 72 76 71 Respiratory Rate 16 20 18 Blood Pressure 114/72 114/58 L 121/70 Pulse Oximetry 98 96 98 BMI result Body Mass Index 26.7 Labs Labs: Laboratory Results - last 48 hr 10/28/21 10/28/21 17:37 17:37 Urine Opiates Screen Not Detected Urine Fentanyl Screen Not Detected Ur Barbiturates Screen Not Detected Ur Phencyclidine Scrn Not Detected Ur Amphetamines Screen Not Detected U Benzodiazepines Scrn POSITIVE H Urine Cocaine Screen Not Detected U Marijuana (THC) Screen POSITIVE H COVID-19 (CORY) Negative COVID-19 Clin Com See Note Meds/Allergies Allergies Allergies Allergy/AdvReac Type Severity Reaction Status Date / Time Sulfa (Sulfonamide Allergy Unknown RASH Verified 10/28/21 17:05 Antibiotics) Mental Status Exam Mental Status Exam Narrative: A&O. Pt is pacing, anxious, casual attire. Poor eye contact, attentive. No Tics or Tremors. No abnormal involuntary movements. Calm, cooperative, engaged. Non- pressured speech, spontaneous with regular rate and rhythm, normal volume and prosody. No prolonged speech latency or dysarthria. Mood is ?calm,? affect is euthymic, overall pleasant. Denies SI/SIB/HI upon inquiry. Denies A/VH. Endorses paranoid delusional thought content. Thoughts are focused on treatment. No known cognitive or memory impairment. Insight/ Judgment limited but adequate. Assessment & Plan Assessment & Plan (1) Schizoaffective disorder, bipolar type: Status: Acute Code(s): F25.0 - Schizoaffective disorder, bipolar type Plan Nnamdi is a 31 y.o. male who carries a dx of schizoaffective disorder, bipolar type. He presented to [facility] ED on 10/28/21?due to non-adherence on medications due to insurance issues since his discharge from on 10/24/2021. Pt endorsed SI but denied plan or intent. Endorsed paranoid ideations. Pt was discharged to the [facility] and he walked to [facility] from [place] in almost 100 degree heat. Plan: Will re-start meds from recent discharge- Tegretol XL 400 mg QAM and 600 mg QHS, Ativan 1 mg BID, Zyprexa 10 mg QAM and 30 mg QHS, and prazosin 2 mg QHS Q15 min safety checks, CV Monitor response to medications. Monitor for safety in the milieu. Discharge on stabilization. Patient seen. Chart reviewed. Discussed with team. Obtain collateral contact info?as needed Patient educated on: medication risk/benefits and therapeutic strategies Reason for continued inpatient stay Substantial Risk for: rapid decompensation and med/psych decompensation
[2021-10-30] MEDS: Nicotine Polacrilex 2 MG GUM BUCCAL (18:55)
[2021-10-30 21:20] VITALS: BP 130/74; PULSE 84; RESP 16; TEMP 36.6
[2021-10-30] MEDS: Prazosin HCL 1 MG CAPSULE 2 MG PO (21:23)
[2021-10-30] MEDS: carBAMazepine ER 200 MG TAB.ER.12H 600 MG PO (21:24)
[2021-10-30] MEDS: OLANZapine 10 MG TABLET 30 MG PO (21:24)
[2021-10-31] MEDS: Nicotine Polacrilex 2 MG GUM 4 MG BUCCAL (04:49)
[2021-10-31] MEDS: Acetaminophen 325 MG TABLET 650 MG PO (06:25)
[2021-10-31 09:00] VITALS: BP 129/73; PULSE 67; RESP 18; TEMP 36.9; O2SAT 98
[2021-10-31] MEDS: Multivitamin TABLET 1 TAB PO (09:18)
[2021-10-31] MEDS: carBAMazepine ER 200 MG TAB.ER.12H 400 MG PO (09:18)
[2021-10-31] MEDS: atenoloL 100 MG TABLET PO (09:18)
[2021-10-31] MEDS: OLANZapine 10 MG TABLET PO (09:18)
[2021-10-31] MEDS: LORazepam 1 MG TABLET PO ×3 (09:18→21:18)
[2021-10-31] MEDS: Nicotine 21 MG PATCH.TD24 TRANSDERMA (09:19)
[2021-10-31] MEDS: Butalb/Acetamin/Caff 50/325/40 TABLET 1 TAB PO (13:08)
--- NOTE | 2021-10-31 15:41 | HO.PSYCHPN ---
Subjective Subjective Date of Service: 10/31/21 Reason For Visit: Depression/SI Interim History: pt calm and cooperative. looks well, linear and organized. states he is feeling improved from when he came into the pod. working with SW to get into [facility]. 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 reports he DCed trazodone last night and started prazosin instead. per staff, endorsed SI at admission, was unable to fill scripts and began to decompensate. no SI/HI/AVH as of last evening, slept well, asking for fioricet for JONES. today asking for something for anxiety as well. Mental Status Exam Mental Status Exam Narrative: pt cooperative, pleasant. non-pressured speech, organized thoughts. appropriately dressed and groomed. slight PMA of pacing the halls. affect constricted, normo-intense, non-labile. mood all right. no SI/SIBI/HI/AVH. Diagnostics Vital Signs (24Hr): Vital Signs - 24 hr 10/30/21 21:20 10/31/21 09:00 Temperature 97.8 F 98.5 F Pulse Rate 84 67 Respiratory Rate 16 18 Blood Pressure 130/74 129/73 Pulse Oximetry 98 BMI result Body Mass Index 26.7 Medications Medications Current Medications Acetaminophen (Acetaminophen 325 Mg Tablet) 650 mg PO Q6H PRN PRN Reason: Headache/Pain Mild Scale (1-3) Last Admin: 10/31/21 06:25 Dose: 650 mg Documented by: Al Hydroxide/Mg Hydroxide (Magnesium Hydrox/Alum Hydrox 30 Ml Oral.Susp) 30 ml PO Q6H PRN PRN Reason: Heartburn/Nausea Albuterol Sulfate (Albuterol Sulfate 90 Mcg 8 Gm Inhaler) 2 puff INHALE Q4H PRN PRN Reason: wheezing Atenolol (Atenolol 100 Mg Tablet) 100 mg PO DAILY [facility]; Protocol Last Admin: 10/31/21 09:18 Dose: 100 mg Documented by: Carbamazepine (Carbamazepine Er 200 Mg Tab.Er.12h) 400 mg PO DAILY [facility] Last Admin: 10/31/21 09:18 Dose: 400 mg Documented by: Carbamazepine (Carbamazepine Er 200 Mg Tab.Er.12h) 600 mg PO BEDTIME [facility] Last Admin: 10/30/21 21:24 Dose: 600 mg Documented by: Hydroxyzine HCl (Hydroxyzine Hcl 25 Mg Tablet) 25 mg PO BEDTIME PRN PRN Reason: Anxiety Lorazepam (Lorazepam 1 Mg Tablet) 1 mg PO BID [facility] Last Admin: 10/31/21 09:18 Dose: 1 mg Documented by: Lorazepam (Lorazepam 1 Mg Tablet) 1 mg PO DAILY PRN PRN Reason: severe anxiety Last Admin: 10/31/21 15:39 Dose: 1 mg Documented by: Magnesium Hydroxide (Milk Of Magnesia 30 Ml Oral.Susp) 30 ml PO DAILY PRN PRN Reason: Constipation Multivitamins/Vitamin C (Multivitamin Tablet) 1 tab PO DAILY [facility] Last Admin: 10/31/21 09:18 Dose: 1 tab Documented by: Nicotine (Nicotine 21 Mg Patch.Td24) 21 mg TRANSDERMA DAILY [facility] Last Admin: 10/31/21 09:19 Dose: 21 mg Documented by: Nicotine Polacrilex (Nicotine Polacrilex 2 Mg Gum) 4 mg BUCCAL Q2H PRN PRN Reason: nicotine craving Last Admin: 10/31/21 04:49 Dose: 4 mg Documented by: Olanzapine (Olanzapine 10 Mg Tablet) 10 mg PO DAILY [facility] Last Admin: 10/31/21 09:18 Dose: 10 mg Documented by: Olanzapine (Olanzapine 10 Mg Tablet) 30 mg PO BEDTIME [facility] Last Admin: 10/30/21 21:24 Dose: 30 mg Documented by: Prazosin HCl (Prazosin Hcl 1 Mg Capsule) 2 mg PO BEDTIME [facility]; Protocol Last Admin: 10/30/21 21:23 Dose: 2 mg Documented by: Allergies Allergies Allergy/AdvReac Type Severity Reaction Status Date / Time Sulfa (Sulfonamide Allergy Unknown RASH Verified 10/28/21 17:05 Antibiotics) Assessment & Plan Assessment & Plan (1) Bipolar disorder: Status: Acute Code(s): F31.9 - Bipolar disorder, unspecified Plan 31-year-old male self presents to ED, off his meds since pharmacy would not refill for several more days and becoming depressed with SI; Recently discharged from 3 last week. Pt reports off meds was depressed with SI, no plan. Back on meds he says he's feeing much better; denies SI/HI or AVH. Pt is glad to hear that Zyprexa and Tegretol will be ready on 10/31 saying it makes big difference in his stability. Pt reports nightmares, most every night from hx of trauma; discussed Prazosin, risks/side-effects and pt would like to try (BP WNL) PLAN: continue home meds except as follows: Started Prazosin for nightmares, at 2 mg as of 10/30. trazodone for sleep DC'ed at admission. Zyprexa, atenolol Tegretol available from outpt pharmacy as of 10/31 pt left Trazodone, albuterol, ativan at [facility] referral [facility] [place] [facility] underway. stabilize, discharge. I spent ___35___ minutes with the patient and/or on the patient floor today, greater than?50% of which was spent counseling/coordinating care. Reason for contiued inpatient stay Substantial Risk for: harm to self, harm to others, inability to function and rapid decompensation
[2021-10-31] MEDS: carBAMazepine ER 200 MG TAB.ER.12H 600 MG PO (21:17)
[2021-10-31] MEDS: OLANZapine 10 MG TABLET 30 MG PO (21:17)
[2021-10-31] MEDS: Prazosin HCL 1 MG CAPSULE 2 MG PO (21:18)
[2021-10-31 21:20] VITALS: BP 121/72; PULSE 85; RESP 16; TEMP 36.4; O2SAT 95
[2021-11-01 08:31] VITALS: BP 109/68; PULSE 65; RESP 16; TEMP 36.6; O2SAT 98
[2021-11-01] MEDS: atenoloL 100 MG TABLET PO (08:33)
[2021-11-01] MEDS: Nicotine 21 MG PATCH.TD24 TRANSDERMA (08:33)
[2021-11-01] MEDS: carBAMazepine ER 200 MG TAB.ER.12H 400 MG PO (08:33)
[2021-11-01] MEDS: LORazepam 1 MG TABLET PO ×3 (08:34→20:56)
[2021-11-01] MEDS: OLANZapine 10 MG TABLET PO (08:34)
[2021-11-01] MEDS: Multivitamin TABLET 1 TAB PO (08:34)
[2021-11-01] MEDS: Acetaminophen 325 MG TABLET 650 MG PO ×2 (11:13→20:58)
[2021-11-01] MEDS: Levothyroxine Sodium 25 MCG TABLET PO (13:03)
[2021-11-01] MEDS: Butalb/Acetamin/Caff 50/325/40 TABLET 1 TAB PO (13:04)
--- NOTE | 2021-11-01 15:22 | P.PNPSI_ITS ---
Subjective Subjective Date of Service: 11/01/21 Reason For Visit: Depression/SI Interim History: pt reports having had severe SI yesterday afternoon, which was difficult to cope with. met with staff, which was helpful. no plan or intent, but concerned. asking about anti-depressants in bipolar disorder, lamictal and wellbutrin discussed as possibilities. MD suggested caution and to see if it becomes a pattern. later pt approached MD and stated he had had a resurgence of the SI this morning and asked for help. agreeable to take 1 mg ativan PRN. also c/o JONES and asked for fioricet, which was given. appeared somewhat more relaxed later in the day. per staff, initially calm and quiet yesterday, pacing. anxious later. MNA and DFA afterward. asking for synthroid 25 mcg daily, which he stated he is supposed to be prescribed. Mental Status Exam Mental Status Exam Narrative: pt cooperative, pleasant. non-pressured speech, organized thoughts. appropriately dressed and groomed. slight PMA of pacing the halls. affect constricted, normo-intense, non-labile. mood anxious. no SI/SIBI/HI/AVH. Diagnostics Vital Signs (24Hr): Vital Signs - 24 hr 10/31/21 21:20 11/01/21 08:31 Temperature 97.6 F 97.9 F Pulse Rate 85 65 Respiratory Rate 16 16 Blood Pressure 121/72 109/68 Pulse Oximetry 95 98 BMI result Body Mass Index 26.7 Medications Medications Current Medications Acetaminophen (Acetaminophen 325 Mg Tablet) 650 mg PO Q6H PRN PRN Reason: Headache/Pain Mild Scale (1-3) Last Admin: 11/01/21 11:13 Dose: 650 mg Documented by: Al Hydroxide/Mg Hydroxide (Magnesium Hydrox/Alum Hydrox 30 Ml Oral.Susp) 30 ml PO Q6H PRN PRN Reason: Heartburn/Nausea Albuterol Sulfate (Albuterol Sulfate 90 Mcg 8 Gm Inhaler) 2 puff INHALE Q4H PRN PRN Reason: wheezing Atenolol (Atenolol 100 Mg Tablet) 100 mg PO DAILY [facility]; Protocol Last Admin: 11/01/21 08:33 Dose: 100 mg Documented by: Carbamazepine (Carbamazepine Er 200 Mg Tab.Er.12h) 400 mg PO DAILY [facility] Last Admin: 11/01/21 08:33 Dose: 400 mg Documented by: Carbamazepine (Carbamazepine Er 200 Mg Tab.Er.12h) 600 mg PO BEDTIME [facility] Last Admin: 10/31/21 21:17 Dose: 600 mg Documented by: Hydroxyzine HCl (Hydroxyzine Hcl 25 Mg Tablet) 25 mg PO BEDTIME PRN PRN Reason: Anxiety Levothyroxine Sodium (Levothyroxine Sodium 25 Mcg Tablet) 25 mcg PO DAILY@0600 [facility] Last Admin: 11/01/21 13:03 Dose: 25 mcg Documented by: Lorazepam (Lorazepam 1 Mg Tablet) 1 mg PO BID [facility] Last Admin: 11/01/21 08:34 Dose: 1 mg Documented by: Lorazepam (Lorazepam 1 Mg Tablet) 1 mg PO DAILY PRN PRN Reason: severe anxiety Last Admin: 11/01/21 13:04 Dose: 1 mg Documented by: Magnesium Hydroxide (Milk Of Magnesia 30 Ml Oral.Susp) 30 ml PO DAILY PRN PRN Reason: Constipation Multivitamins/Vitamin C (Multivitamin Tablet) 1 tab PO DAILY [facility] Last Admin: 11/01/21 08:34 Dose: 1 tab Documented by: Nicotine (Nicotine 21 Mg Patch.Td24) 21 mg TRANSDERMA DAILY [facility] Last Admin: 11/01/21 08:33 Dose: 21 mg Documented by: Nicotine Polacrilex (Nicotine Polacrilex 2 Mg Gum) 4 mg BUCCAL Q2H PRN PRN Reason: nicotine craving Last Admin: 10/31/21 04:49 Dose: 4 mg Documented by: Olanzapine (Olanzapine 10 Mg Tablet) 10 mg PO DAILY [facility] Last Admin: 11/01/21 08:34 Dose: 10 mg Documented by: Olanzapine (Olanzapine 10 Mg Tablet) 30 mg PO BEDTIME [facility] Last Admin: 10/31/21 21:17 Dose: 30 mg Documented by: Prazosin HCl (Prazosin Hcl 1 Mg Capsule) 2 mg PO BEDTIME [facility]; Protocol Last Admin: 10/31/21 21:18 Dose: 2 mg Documented by: Allergies Allergies Allergy/AdvReac Type Severity Reaction Status Date / Time Sulfa (Sulfonamide Allergy Unknown RASH Verified 10/28/21 17:05 Antibiotics) Assessment & Plan Assessment & Plan (1) Schizoaffective disorder, bipolar type: Status: Acute Code(s): F25.0 - Schizoaffective disorder, bipolar type Plan Nnamdi is a 31 y.o. male who carries a dx of schizoaffective disorder, bipolar type. He presented to [facility] ED on 10/28/21?due to non-adherence on medications due to insurance issues since his discharge from on 10/24/2021. Pt endorsed SI but denied plan or intent. Endorsed paranoid ideations. Pt was discharged to the [facility] and he walked to [facility] from [place] in almost 100 degree heat. Plan: Will re-start meds from recent discharge- Tegretol XL 400 mg QAM and 600 mg QHS, Ativan 1 mg BID, Zyprexa 10 mg QAM and 30 mg QHS, and prazosin 2 mg QHS 11/01: synthroid 25 mcg restarted at pt request; he is supposed to be taking it outpt. got fioricet for JONES, ativan PRN for severe anxiety/SI. continue current regimen otherwise. I spent ___35___ minutes with the patient and/or on the patient floor today, greater than?50% of which was spent counseling/coordinating care. Reason for contiued inpatient stay Substantial Risk for: harm to self, inability to function and rapid decompensation
[2021-11-01 20:40] VITALS: BP 123/84; PULSE 75; RESP 17; TEMP 36.6; O2SAT 96
[2021-11-01] MEDS: carBAMazepine ER 200 MG TAB.ER.12H 600 MG PO (20:57)
[2021-11-01] MEDS: OLANZapine 10 MG TABLET 30 MG PO (20:57)
[2021-11-01] MEDS: Prazosin HCL 1 MG CAPSULE 2 MG PO (20:58)
[2021-11-02] MEDS: Levothyroxine Sodium 25 MCG TABLET PO (05:59)
[2021-11-02] MEDS: Acetaminophen 325 MG TABLET 650 MG PO ×2 (05:59→12:23)
[2021-11-02 08:21] VITALS: BP 121/65; PULSE 64; RESP 17; TEMP 36.4; O2SAT 96
[2021-11-02] MEDS: LORazepam 1 MG TABLET PO ×2 (08:34→17:46)
[2021-11-02] MEDS: carBAMazepine ER 200 MG TAB.ER.12H 400 MG PO (08:34)
[2021-11-02] MEDS: Nicotine 21 MG PATCH.TD24 TRANSDERMA (08:34)
[2021-11-02] MEDS: atenoloL 100 MG TABLET PO (08:34)
[2021-11-02] MEDS: buPROPion HCl XL 150 MG TAB.ER.24H PO (11:29)
--- NOTE | 2021-11-02 13:36 | P.PNPSI_ITS ---
Subjective Subjective Date of Service: 11/02/21 Reason For Visit: Depression/SI Interim History: pt appears somewhat distressed this morning, c/o depressed mood, asking for anti-depressant. wellbutrin started at 150 mg daily. encouraged to give the tegretol more time to begin to work, as his mood seems fairly labile. c/o sedation with morning zyprexa, agreed to add that dose to his HS regimen. also appears quite worried he will be discharged over the long weekend, which he was told yesterday would not happen. he felt that because he was having an intake with the [facility] today that that was what would be happening. pt assured that [facility] was informed that we are not planning to DC him soon and that the intake is relevant for once he is stable for discharge. per staff, delcined zyprexa in the morniing, c/o sedation. appeared drowsy this morning. hyper-faith. moderate anxiety. pacing. up at 4-5 a.m. periods of agitation/lability yesterday. Mental Status Exam Mental Status Exam Narrative: pt cooperative, pleasant. non-pressured speech, organized thoughts. appropriately dressed and groomed. slight PMA of pacing the halls. affect constricted, normo-intense, non-labile. mood anxious. some paranoia. no SI/SIBI/HI/AVH expressed. Diagnostics Vital Signs (24Hr): Vital Signs - 24 hr 11/01/21 20:40 11/02/21 08:21 Temperature 97.8 F 97.6 F Pulse Rate 75 64 Respiratory Rate 17 17 Blood Pressure 123/84 121/65 Pulse Oximetry 96 96 BMI result Body Mass Index 26.7 Medications Medications Current Medications Acetaminophen (Acetaminophen 325 Mg Tablet) 650 mg PO Q6H PRN PRN Reason: Headache/Pain Mild Scale (1-3) Last Admin: 11/02/21 12:23 Dose: 650 mg Documented by: Al Hydroxide/Mg Hydroxide (Magnesium Hydrox/Alum Hydrox 30 Ml Oral.Susp) 30 ml PO Q6H PRN PRN Reason: Heartburn/Nausea Albuterol Sulfate (Albuterol Sulfate 90 Mcg 8 Gm Inhaler) 2 puff INHALE Q4H PRN PRN Reason: wheezing Atenolol (Atenolol 100 Mg Tablet) 100 mg PO DAILY [facility]; Protocol Last Admin: 11/02/21 08:34 Dose: 100 mg Documented by: Bupropion HCl (Bupropion Hcl Xl 150 Mg Tab.Er.24h) 150 mg PO DAILY [facility] Last Admin: 11/02/21 11:29 Dose: 150 mg Documented by: Carbamazepine (Carbamazepine Er 200 Mg Tab.Er.12h) 400 mg PO DAILY [facility] Last Admin: 11/02/21 08:34 Dose: 400 mg Documented by: Carbamazepine (Carbamazepine Er 200 Mg Tab.Er.12h) 600 mg PO BEDTIME [facility] Last Admin: 11/01/21 20:57 Dose: 600 mg Documented by: Hydroxyzine HCl (Hydroxyzine Hcl 25 Mg Tablet) 25 mg PO BEDTIME PRN PRN Reason: Anxiety Levothyroxine Sodium (Levothyroxine Sodium 25 Mcg Tablet) 25 mcg PO DAILY@0600 [facility] Last Admin: 11/02/21 05:59 Dose: 25 mcg Documented by: Lorazepam (Lorazepam 1 Mg Tablet) 1 mg PO BID [facility] Last Admin: 11/02/21 08:34 Dose: 1 mg Documented by: Lorazepam (Lorazepam 1 Mg Tablet) 1 mg PO DAILY PRN PRN Reason: severe anxiety Last Admin: 11/01/21 13:04 Dose: 1 mg Documented by: Magnesium Hydroxide (Milk Of Magnesia 30 Ml Oral.Susp) 30 ml PO DAILY PRN PRN Reason: Constipation Multivitamins/Vitamin C (Multivitamin Tablet) 1 tab PO DAILY [facility] Last Admin: 11/02/21 08:16 Dose: Not Given Documented by: Nicotine (Nicotine 21 Mg Patch.Td24) 21 mg TRANSDERMA DAILY [facility] Last Admin: 11/02/21 08:34 Dose: 21 mg Documented by: Nicotine Polacrilex (Nicotine Polacrilex 2 Mg Gum) 4 mg BUCCAL Q2H PRN PRN Reason: nicotine craving Last Admin: 10/31/21 04:49 Dose: 4 mg Documented by: Olanzapine (Olanzapine 10 Mg Tablet) 40 mg PO BEDTIME [facility] Prazosin HCl (Prazosin Hcl 1 Mg Capsule) 2 mg PO BEDTIME [facility]; Protocol Last Admin: 11/01/21 20:58 Dose: 2 mg Documented by: Allergies Allergies Allergy/AdvReac Type Severity Reaction Status Date / Time Sulfa (Sulfonamide Allergy Unknown RASH Verified 10/28/21 17:05 Antibiotics) Assessment & Plan Assessment & Plan (1) Schizoaffective disorder, bipolar type: Status: Acute Code(s): F25.0 - Schizoaffective disorder, bipolar type Plan Nnamdi is a 31 y.o. male who carries a dx of schizoaffective disorder, bipolar type. He presented to [facility] ED on 10/28/21?due to non-adherence on medications due to insurance issues since his discharge from on 10/24/2021. Pt endorsed SI but denied plan or intent. Endorsed paranoid ideations. Pt was discharged to the [facility] and he walked to [facility] from [place] in almost 100 degree heat. Plan: Will re-start meds from recent discharge- Tegretol XL 400 mg QAM and 600 mg QHS, Ativan 1 mg BID, Zyprexa 10 mg QAM and 30 mg QHS, and prazosin 2 mg QHS 11/01: synthroid 25 mcg restarted at pt request; he is supposed to be taking it outpt. got fioricet for JONES, ativan PRN for severe anxiety/SI. continue current regimen otherwise. 11/02: change zyprexa from 04/07 to 40 QHS. started wellbutrin XL 150 mg daily at pt request. I spent ___25___ minutes with the patient and/or on the patient floor today, greater than?50% of which was spent counseling/coordinating care. Reason for contiued inpatient stay Substantial Risk for: harm to self, inability to function and rapid decompensation
[2021-11-02 21:40] VITALS: BP 115/60; PULSE 72; RESP 16; TEMP 36.1
[2021-11-02] MEDS: carBAMazepine ER 200 MG TAB.ER.12H 600 MG PO (21:52)
[2021-11-02] MEDS: OLANZapine 10 MG TABLET 40 MG PO (21:52)
[2021-11-02] MEDS: Prazosin HCL 1 MG CAPSULE 2 MG PO (21:52)
[2021-11-03] MEDS: Multivitamin TABLET 1 TAB PO (08:29)
[2021-11-03] MEDS: Nicotine 21 MG PATCH.TD24 TRANSDERMA (08:29)
[2021-11-03] MEDS: atenoloL 100 MG TABLET PO (08:30)
[2021-11-03] MEDS: Levothyroxine Sodium 25 MCG TABLET PO (08:30)
[2021-11-03] MEDS: buPROPion HCl XL 150 MG TAB.ER.24H PO (08:30)
[2021-11-03] MEDS: carBAMazepine ER 200 MG TAB.ER.12H 400 MG PO (08:30)
[2021-11-03 08:40] VITALS: BP 125/75; PULSE 79; RESP 16; TEMP 36.6; O2SAT 95
[2021-11-03] MEDS: Acetaminophen 325 MG TABLET 650 MG PO ×2 (08:44→15:14)
--- NOTE | 2021-11-03 11:53 | P.PNPSI_ITS ---
Subjective Subjective Date of Service: 11/03/21 Reason For Visit: Depression/SI Subjective Notes: Conditional Voluntary Interim History: The nursing staff reported the patient has been compliant with treatment, he denies new symptoms. On interview, the patient reports that he is also, he denies side effects with current medications. This is the 3rd admission on the last month of this patient. Mental Status Exam Mental Status Exam Patient Appearance: Well Grooomed Patient Orientation: Person and Situation Level of Consciousness: Awake Patient Behavior: Cooperative Mood Description: Calm Affect Description: Constricted Ability to Follow Directions: Good Speech Pattern: Clear Hallucinations: None Delusions: Not Present Thought Process: Distracted and Evasive Thought Content: positive for [place] Judgement: Fair Diagnostics Vital Signs (24Hr): Vital Signs - 24 hr 11/02/21 21:40 Temperature 96.9 F Pulse Rate 72 Respiratory Rate 16 Blood Pressure 115/60 BMI result Body Mass Index 26.7 Medications Medications Current Medications Acetaminophen (Acetaminophen 325 Mg Tablet) 650 mg PO Q6H PRN PRN Reason: Headache/Pain Mild Scale (1-3) Last Admin: 11/03/21 08:44 Dose: 650 mg Documented by: Al Hydroxide/Mg Hydroxide (Magnesium Hydrox/Alum Hydrox 30 Ml Oral.Susp) 30 ml PO Q6H PRN PRN Reason: Heartburn/Nausea Albuterol Sulfate (Albuterol Sulfate 90 Mcg 8 Gm Inhaler) 2 puff INHALE Q4H PRN PRN Reason: wheezing Atenolol (Atenolol 100 Mg Tablet) 100 mg PO DAILY [facility]; Protocol Last Admin: 11/03/21 08:30 Dose: 100 mg Documented by: Bupropion HCl (Bupropion Hcl Xl 150 Mg Tab.Er.24h) 150 mg PO DAILY [facility] Last Admin: 11/03/21 08:30 Dose: 150 mg Documented by: Carbamazepine (Carbamazepine Er 200 Mg Tab.Er.12h) 400 mg PO DAILY [facility] Last Admin: 11/03/21 08:30 Dose: 400 mg Documented by: Carbamazepine (Carbamazepine Er 200 Mg Tab.Er.12h) 600 mg PO BEDTIME [facility] Last Admin: 11/02/21 21:52 Dose: 600 mg Documented by: Hydroxyzine HCl (Hydroxyzine Hcl 25 Mg Tablet) 25 mg PO BEDTIME PRN PRN Reason: Anxiety Levothyroxine Sodium (Levothyroxine Sodium 25 Mcg Tablet) 25 mcg PO DAILY@0600 [facility] Last Admin: 11/03/21 08:30 Dose: 25 mcg Documented by: Lorazepam (Lorazepam 1 Mg Tablet) 1 mg PO DAILY PRN PRN Reason: severe anxiety Last Admin: 11/02/21 17:46 Dose: 1 mg Documented by: Magnesium Hydroxide (Milk Of Magnesia 30 Ml Oral.Susp) 30 ml PO DAILY PRN PRN Reason: Constipation Multivitamins/Vitamin C (Multivitamin Tablet) 1 tab PO DAILY [facility] Last Admin: 11/03/21 08:29 Dose: 1 tab Documented by: Nicotine (Nicotine 21 Mg Patch.Td24) 21 mg TRANSDERMA DAILY [facility] Last Admin: 11/03/21 08:29 Dose: 21 mg Documented by: Nicotine Polacrilex (Nicotine Polacrilex 2 Mg Gum) 4 mg BUCCAL Q2H PRN PRN Reason: nicotine craving Last Admin: 10/31/21 04:49 Dose: 4 mg Documented by: Olanzapine (Olanzapine 10 Mg Tablet) 40 mg PO BEDTIME [facility] Last Admin: 11/02/21 21:52 Dose: 40 mg Documented by: Prazosin HCl (Prazosin Hcl 1 Mg Capsule) 2 mg PO BEDTIME [facility]; Protocol Last Admin: 11/02/21 21:52 Dose: 2 mg Documented by: Allergies Allergies Allergy/AdvReac Type Severity Reaction Status Date / Time Sulfa (Sulfonamide Allergy Unknown RASH Verified 10/28/21 17:05 Antibiotics) Assessment & Plan Assessment & Plan (1) Schizoaffective disorder, bipolar type: Status: Acute Code(s): F25.0 - Schizoaffective disorder, bipolar type Plan Nnamdi is a 31 y.o. male who carries a dx of schizoaffective disorder, bipolar type. He presented to [facility] ED on 10/28/21?due to non-adherence on medications due to insurance issues since his discharge from on 10/24/2021. Pt endorsed SI but denied plan or intent. Endorsed paranoid ideations. Pt was discharged to the [facility] and he walked to [facility] from [place] in almost 100 degree heat. Plan: Will re-start meds from recent discharge- Tegretol XL 400 mg QAM and 600 mg QHS, Ativan 1 mg BID, Zyprexa 10 mg QAM and 30 mg QHS, and prazosin 2 mg QHS 11/01: synthroid 25 mcg restarted at pt request; he is supposed to be taking it outpt. got fioricet for JONES, ativan PRN for severe anxiety/SI. continue current regimen otherwise. 11/02: change zyprexa from 04/07 to 40 QHS. started wellbutrin XL 150 mg daily at pt request. 11/03: no changes I spent ____20__ minutes with the patient and/or on the patient floor today, greater than?50% of which was spent counseling/coordinating care. Reason for contiued inpatient stay Substantial Risk for: inability to function, rapid decompensation and med/psych decompensation
[2021-11-03] MEDS: LORazepam 1 MG TABLET PO (12:45)
[2021-11-03] MEDS: Albuterol Sulfate 90 MCG 8 GM INHALER 2 PUFF INHALE (16:14)
[2021-11-03 19:31] VITALS: BP 119/83; PULSE 78; RESP 20; TEMP 36.3; O2SAT 98
[2021-11-03] MEDS: OLANZapine 10 MG TABLET 40 MG PO (20:00)
[2021-11-03] MEDS: carBAMazepine ER 200 MG TAB.ER.12H 600 MG PO (20:01)
[2021-11-03] MEDS: Prazosin HCL 1 MG CAPSULE 2 MG PO (20:01)
[2021-11-04 06:00] VITALS: BP 121/74; PULSE 85; RESP 16; TEMP 36.6; O2SAT 97
[2021-11-04] MEDS: carBAMazepine ER 200 MG TAB.ER.12H 400 MG PO (08:20)
[2021-11-04] MEDS: Nicotine 21 MG PATCH.TD24 TRANSDERMA (08:20)
[2021-11-04] MEDS: buPROPion HCl XL 150 MG TAB.ER.24H PO (08:20)
[2021-11-04] MEDS: Levothyroxine Sodium 25 MCG TABLET PO (08:20)
[2021-11-04] MEDS: Multivitamin TABLET 1 TAB PO (08:20)
[2021-11-04] MEDS: atenoloL 100 MG TABLET PO (08:20)
[2021-11-04] MEDS: Albuterol Sulfate 90 MCG 8 GM INHALER 2 PUFF INHALE (11:28)
[2021-11-04] MEDS: LORazepam 1 MG TABLET PO (12:29)
--- NOTE | 2021-11-04 14:38 | HO.PSYCHPN ---
Subjective Subjective Date of Service: 11/04/21 Reason For Visit: Depression/SI Subjective Notes: Conditional Voluntary Interim History: The nursing staff reported that patient has complained with Headaches and he used to be on Topamax. He remains hypomanic with fast speech. On interview he agreed to start Topamax and he seems manic. Mental Status Exam Mental Status Exam Patient Appearance: Appropriate Patient Orientation: Person and Situation Level of Consciousness: Awake Patient Behavior: Guarded and Passive Mood Description: Withdrawn Affect Description: Labile Patient Cognition Impaired: No Ability to Follow Directions: Good Speech Pattern: Clear Hallucinations: None Delusions: Grandiose Thought Process: Distracted Thought Content: positive for [place] and positive for [place] of Content Judgement: Fair Diagnostics Vital Signs (24Hr): Vital Signs - 24 hr 11/03/21 19:31 11/04/21 06:00 Temperature 97.4 F 97.9 F Pulse Rate 78 85 Respiratory Rate 20 16 Blood Pressure 119/83 121/74 Pulse Oximetry 98 97 BMI result Body Mass Index 26.7 Medications Medications Current Medications Acetaminophen (Acetaminophen 325 Mg Tablet) 650 mg PO Q6H PRN PRN Reason: Headache/Pain Mild Scale (1-3) Last Admin: 11/03/21 15:14 Dose: 650 mg Documented by: Al Hydroxide/Mg Hydroxide (Magnesium Hydrox/Alum Hydrox 30 Ml Oral.Susp) 30 ml PO Q6H PRN PRN Reason: Heartburn/Nausea Albuterol Sulfate (Albuterol Sulfate 90 Mcg 8 Gm Inhaler) 2 puff INHALE Q4H PRN PRN Reason: wheezing Last Admin: 11/04/21 11:28 Dose: 2 puff Documented by: Atenolol (Atenolol 100 Mg Tablet) 100 mg PO DAILY [facility]; Protocol Last Admin: 11/04/21 08:20 Dose: 100 mg Documented by: Bupropion HCl (Bupropion Hcl Xl 150 Mg Tab.Er.24h) 150 mg PO DAILY [facility] Last Admin: 11/04/21 08:20 Dose: 150 mg Documented by: Carbamazepine (Carbamazepine Er 200 Mg Tab.Er.12h) 400 mg PO DAILY [facility] Last Admin: 11/04/21 08:20 Dose: 400 mg Documented by: Carbamazepine (Carbamazepine Er 200 Mg Tab.Er.12h) 600 mg PO BEDTIME [facility] Last Admin: 11/03/21 20:01 Dose: 600 mg Documented by: Hydroxyzine HCl (Hydroxyzine Hcl 25 Mg Tablet) 25 mg PO BEDTIME PRN PRN Reason: Anxiety Levothyroxine Sodium (Levothyroxine Sodium 25 Mcg Tablet) 25 mcg PO DAILY@0600 [facility] Last Admin: 11/04/21 08:20 Dose: 25 mcg Documented by: Lorazepam (Lorazepam 1 Mg Tablet) 1 mg PO DAILY PRN PRN Reason: severe anxiety Last Admin: 11/04/21 12:29 Dose: 1 mg Documented by: Magnesium Hydroxide (Milk Of Magnesia 30 Ml Oral.Susp) 30 ml PO DAILY PRN PRN Reason: Constipation Multivitamins/Vitamin C (Multivitamin Tablet) 1 tab PO DAILY [facility] Last Admin: 11/04/21 08:20 Dose: 1 tab Documented by: Nicotine (Nicotine 21 Mg Patch.Td24) 21 mg TRANSDERMA DAILY [facility] Last Admin: 11/04/21 08:20 Dose: 21 mg Documented by: Nicotine Polacrilex (Nicotine Polacrilex 2 Mg Gum) 4 mg BUCCAL Q2H PRN PRN Reason: nicotine craving Last Admin: 10/31/21 04:49 Dose: 4 mg Documented by: Olanzapine (Olanzapine 10 Mg Tablet) 40 mg PO BEDTIME [facility] Last Admin: 11/03/21 20:00 Dose: 40 mg Documented by: Prazosin HCl (Prazosin Hcl 1 Mg Capsule) 2 mg PO BEDTIME [facility]; Protocol Last Admin: 11/03/21 20:01 Dose: 2 mg Documented by: Allergies Allergies Allergy/AdvReac Type Severity Reaction Status Date / Time Sulfa (Sulfonamide Allergy Unknown RASH Verified 10/28/21 17:05 Antibiotics) Assessment & Plan Assessment & Plan (1) Schizoaffective disorder, bipolar type: Status: Acute Code(s): F25.0 - Schizoaffective disorder, bipolar type Plan Nnamdi is a 31 y.o. male who carries a dx of schizoaffective disorder, bipolar type. He presented to [facility] [place] 10/28/21?due to non-adherence on medications due to insurance issues since his discharge from on 10/24/2021. Pt endorsed SI but denied plan or intent. Endorsed paranoid ideations. Pt was discharged to the [facility] and he walked to [facility] [place] in almost 100 degree heat. Plan: Will re-start meds from recent discharge- Tegretol XL 400 mg QAM and 600 mg QHS, Ativan 1 mg BID, Zyprexa 10 mg QAM and 30 mg QHS, and prazosin 2 mg QHS 11/01: synthroid 25 mcg restarted at pt request; he is supposed to be taking it outpt. got fioricet for JONES, ativan PRN for severe anxiety/SI. continue current regimen otherwise. 11/02: change zyprexa from 04/07 to 40 QHS. started wellbutrin XL 150 mg daily at pt request. 11/03: no changes 11/04; hypomanic, started on Topamax 25 mg po bid I spent __20____ minutes with the patient and/or on the patient floor today, greater than?50% of which was spent counseling/coordinating care. Reason for contiued inpatient stay Substantial Risk for: inability to function, rapid decompensation and med/psych decompensation
[2021-11-04] MEDS: Acetaminophen 325 MG TABLET 650 MG PO (16:34)
[2021-11-04 20:15] VITALS: BP 122/87; PULSE 92; RESP 18; TEMP 36.6; O2SAT 95
[2021-11-04] MEDS: carBAMazepine ER 200 MG TAB.ER.12H 600 MG PO (20:18)
[2021-11-04] MEDS: Prazosin HCL 1 MG CAPSULE 2 MG PO (20:18)
[2021-11-04] MEDS: Topiramate 25 MG TABLET PO (20:18)
[2021-11-04] MEDS: OLANZapine 10 MG TABLET 40 MG PO (20:18)
[2021-11-05] MEDS: Levothyroxine Sodium 25 MCG TABLET PO (06:40)
[2021-11-05] MEDS: Nicotine Polacrilex 2 MG GUM 4 MG BUCCAL ×2 (06:47→16:47)
[2021-11-05] MEDS: Nicotine 21 MG PATCH.TD24 TRANSDERMA (08:03)
[2021-11-05] MEDS: atenoloL 100 MG TABLET PO (08:04)
[2021-11-05] MEDS: buPROPion HCl XL 150 MG TAB.ER.24H PO (08:04)
[2021-11-05] MEDS: Topiramate 25 MG TABLET PO (08:04)
[2021-11-05] MEDS: Multivitamin TABLET 1 TAB PO (08:04)
[2021-11-05 08:06] VITALS: BP 125/73; PULSE 81; RESP 18; TEMP 36.2; O2SAT 97
[2021-11-05] MEDS: Acetaminophen 325 MG TABLET 650 MG PO (09:13)
--- NOTE | 2021-11-05 11:41 | HO.PSYCHPN ---
Subjective Subjective Date of Service: 11/05/21 Reason For Visit: Depression/SI Interim History: The nursing staff reported that the patient be socializing well with peers to report less anxiety and he is a patient sleep has improved. He has refused his Tegretol since he is taking now Topamax and he has stated that he does not see the point of taking 2 anti-seizures. Mental Status Exam Mental Status Exam Patient Appearance: Well Grooomed Patient Orientation: Person, Place and Situation Level of Consciousness: Awake Patient Behavior: Appropriate Mood Description: Appropriate Affect Description: Constricted Patient Cognition Impaired: No Ability to Follow Directions: Good Speech Pattern: Clear Hallucinations: None Delusions: Not Present Thought Process: Linear Thought Content: positive for [place] Judgement: Fair Diagnostics Vital Signs (24Hr): Vital Signs - 24 hr 11/04/21 20:15 11/05/21 08:06 Temperature 97.9 F 97.2 F Pulse Rate 92 81 Respiratory Rate 18 18 Blood Pressure 122/87 125/73 Pulse Oximetry 95 97 BMI result Body Mass Index 26.7 Medications Medications Current Medications Acetaminophen (Acetaminophen 325 Mg Tablet) 650 mg PO Q6H PRN PRN Reason: Headache/Pain Mild Scale (1-3) Last Admin: 11/05/21 09:13 Dose: 650 mg Documented by: Al Hydroxide/Mg Hydroxide (Magnesium Hydrox/Alum Hydrox 30 Ml Oral.Susp) 30 ml PO Q6H PRN PRN Reason: Heartburn/Nausea Albuterol Sulfate (Albuterol Sulfate 90 Mcg 8 Gm Inhaler) 2 puff INHALE Q4H PRN PRN Reason: wheezing Last Admin: 11/04/21 11:28 Dose: 2 puff Documented by: Atenolol (Atenolol 100 Mg Tablet) 100 mg PO DAILY [facility]; Protocol Last Admin: 11/05/21 08:04 Dose: 100 mg Documented by: Bupropion HCl (Bupropion Hcl Xl 150 Mg Tab.Er.24h) 150 mg PO DAILY [facility] Last Admin: 11/05/21 08:04 Dose: 150 mg Documented by: Carbamazepine (Carbamazepine Er 200 Mg Tab.Er.12h) 400 mg PO DAILY [facility] Last Admin: 11/05/21 08:04 Dose: Not Given Documented by: Carbamazepine (Carbamazepine Er 200 Mg Tab.Er.12h) 600 mg PO BEDTIME [facility] Last Admin: 05/29/22 20:18 Dose: 600 mg Documented by: Hydroxyzine HCl (Hydroxyzine Hcl 25 Mg Tablet) 25 mg PO BEDTIME PRN PRN Reason: Anxiety Levothyroxine Sodium (Levothyroxine Sodium 25 Mcg Tablet) 25 mcg PO DAILY@0600 [facility] Last Admin: 11/05/21 06:40 Dose: 25 mcg Documented by: Lorazepam (Lorazepam 1 Mg Tablet) 1 mg PO DAILY PRN PRN Reason: severe anxiety Last Admin: 11/04/21 12:29 Dose: 1 mg Documented by: Magnesium Hydroxide (Milk Of Magnesia 30 Ml Oral.Susp) 30 ml PO DAILY PRN PRN Reason: Constipation Multivitamins/Vitamin C (Multivitamin Tablet) 1 tab PO DAILY [facility] Last Admin: 11/05/21 08:04 Dose: 1 tab Documented by: Nicotine (Nicotine 21 Mg Patch.Td24) 21 mg TRANSDERMA DAILY [facility] Last Admin: 11/05/21 08:03 Dose: 21 mg Documented by: Nicotine Polacrilex (Nicotine Polacrilex 2 Mg Gum) 4 mg BUCCAL Q2H PRN PRN Reason: nicotine craving Last Admin: 11/05/21 06:47 Dose: 4 mg Documented by: Olanzapine (Olanzapine 10 Mg Tablet) 40 mg PO BEDTIME [facility] Last Admin: 11/04/21 20:18 Dose: 40 mg Documented by: Prazosin HCl (Prazosin Hcl 1 Mg Capsule) 2 mg PO BEDTIME [facility]; Protocol Last Admin: 11/04/21 20:18 Dose: 2 mg Documented by: Allergies Allergies Allergy/AdvReac Type Severity Reaction Status Date / Time Sulfa (Sulfonamide Allergy Unknown RASH Verified 10/28/21 17:05 Antibiotics) Assessment & Plan Assessment & Plan (1) Schizoaffective disorder, bipolar type: Status: Acute Code(s): F25.0 - Schizoaffective disorder, bipolar type Plan Nnamdi is a 31 y.o. male who carries a dx of schizoaffective disorder, bipolar type. He presented to [facility] on 10/28/21?due to non-adherence on medications due to insurance issues since his discharge from on 10/24/2021. Pt endorsed SI but denied plan or intent. Endorsed paranoid ideations. Pt was discharged to the [facility] and he walked to [facility] from [place] in almost 100 degree heat. Plan: Will re-start meds from recent discharge- Tegretol XL 400 mg QAM and 600 mg QHS, Ativan 1 mg BID, Zyprexa 10 mg QAM and 30 mg QHS, and prazosin 2 mg QHS 11/01: synthroid 25 mcg restarted at pt request; he is supposed to be taking it outpt. got fioricet for JONES, ativan PRN for severe anxiety/SI. continue current regimen otherwise. 11/02: change zyprexa from 04/07 to 40 QHS. started wellbutrin XL 150 mg daily at pt request. 11/03: no changes 11/04; hypomanic, started on Topamax 25 mg po bid 11/05 increase Topamax up to 50 mg po bid I spent __20____ minutes with the patient and/or on the patient floor today, greater than?50% of which was spent counseling/coordinating care. Reason for contiued inpatient stay Substantial Risk for: inability to function, rapid decompensation and med/psych decompensation
[2021-11-05] MEDS: Prazosin HCL 1 MG CAPSULE 2 MG PO (21:21)
[2021-11-05] MEDS: OLANZapine 10 MG TABLET 40 MG PO (21:21)
[2021-11-05] MEDS: Topiramate 25 MG TABLET 50 MG PO (21:21)
[2021-11-05 21:25] VITALS: BP 134/86; PULSE 71; RESP 18; TEMP 36.1; O2SAT 95
[2021-11-06] MEDS: Levothyroxine Sodium 25 MCG TABLET PO (06:28)
[2021-11-06] MEDS: Nicotine 21 MG PATCH.TD24 TRANSDERMA (08:03)
[2021-11-06] MEDS: atenoloL 100 MG TABLET PO (08:04)
[2021-11-06] MEDS: Topiramate 25 MG TABLET 50 MG PO ×2 (08:04→19:54)
[2021-11-06] MEDS: buPROPion HCl XL 150 MG TAB.ER.24H PO (08:04)
[2021-11-06] MEDS: Acetaminophen 325 MG TABLET 650 MG PO ×2 (08:15→17:48)
[2021-11-06 08:17] VITALS: BP 120/75; PULSE 93; RESP 17; TEMP 36.4; O2SAT 95
[2021-11-06] MEDS: Albuterol Sulfate 90 MCG 8 GM INHALER 2 PUFF INHALE (10:21)
[2021-11-06] MEDS: carBAMazepine ER 200 MG TAB.ER.12H 400 MG PO (11:39)
--- NOTE | 2021-11-06 13:18 | HO.PSYCHPN ---
Subjective Subjective Date of Service: 11/06/21 Reason For Visit: Depression/SI Interim History: pt reports as he was going to bed for two nights recently he experienced sudden electric shock sensations in his head. they were not painful, but rather concerning. he asked to start topamax from on-call MD, which was done. he reports no such experiences since, and no migraines, either. he decided he did not need tegretol since he was already on one anti-Sz medication and so refused the tegretol for the past 24H. he reports feeling better since starting wellbutrin and topamax, calmer, more relaxed. MD educates pt about evidence-based therapies for sisi, pt agrees to continue taking tegretol as long as he can continue to take topamax. no other changes, questions, or complaints. per staff, isolative, having trust issues with peers. refused tegretol after friday NOC dose. no other notable events or behaviors. Mental Status Exam Mental Status Exam Narrative: pt cooperative, pleasant. non-pressured speech, organized thoughts. appropriately dressed and groomed. slight PMA of pacing the halls. affect constricted, normo-intense, non-labile. mood anxious. no paranoia or delusions expressed. no SI/SIBI/HI/AVH expressed. Diagnostics Vital Signs (24Hr): Vital Signs - 24 hr 11/05/21 21:25 11/06/21 08:17 Temperature 96.9 F 97.6 F Pulse Rate 71 93 Respiratory Rate 18 17 Blood Pressure 134/86 120/75 Pulse Oximetry 95 95 BMI result Body Mass Index 26.7 Medications Medications Current Medications Acetaminophen (Acetaminophen 325 Mg Tablet) 650 mg PO Q6H PRN PRN Reason: Headache/Pain Mild Scale (1-3) Last Admin: 11/06/21 08:15 Dose: 650 mg Documented by: Al Hydroxide/Mg Hydroxide (Magnesium Hydrox/Alum Hydrox 30 Ml Oral.Susp) 30 ml PO Q6H PRN PRN Reason: Heartburn/Nausea Albuterol Sulfate (Albuterol Sulfate 90 Mcg 8 Gm Inhaler) 2 puff INHALE Q4H PRN PRN Reason: wheezing Last Admin: 11/06/21 10:21 Dose: 2 puff Documented by: Atenolol (Atenolol 100 Mg Tablet) 100 mg PO DAILY [facility]; Protocol Last Admin: 11/06/21 08:04 Dose: 100 mg Documented by: Bupropion HCl (Bupropion Hcl Xl 150 Mg Tab.Er.24h) 150 mg PO DAILY [facility] Last Admin: 11/06/21 08:04 Dose: 150 mg Documented by: Carbamazepine (Carbamazepine Er 200 Mg Tab.Er.12h) 400 mg PO DAILY [facility] Last Admin: 11/06/21 11:39 Dose: 400 mg Documented by: Carbamazepine (Carbamazepine Er 200 Mg Tab.Er.12h) 600 mg PO BEDTIME [facility]EE [facility]EE Last Admin: 11/05/21 21:26 Dose: Not Given Documented by: Hydroxyzine HCl (Hydroxyzine Hcl 25 Mg Tablet) 25 mg PO BEDTIME PRN PRN Reason: Anxiety Levothyroxine Sodium (Levothyroxine Sodium 25 Mcg Tablet) 25 mcg PO DAILY@0600 [facility] Last Admin: 11/06/21 06:28 Dose: 25 mcg Documented by: Magnesium Hydroxide (Milk Of Magnesia 30 Ml Oral.Susp) 30 ml PO DAILY PRN PRN Reason: Constipation Multivitamins/Vitamin C (Multivitamin Tablet) 1 tab PO DAILY [facility] Last Admin: 11/06/21 08:13 Dose: Not Given Documented by: Nicotine (Nicotine 21 Mg Patch.Td24) 21 mg TRANSDERMA DAILY [facility] Last Admin: 11/06/21 08:03 Dose: 21 mg Documented by: Nicotine Polacrilex (Nicotine Polacrilex 2 Mg Gum) 4 mg BUCCAL Q2H PRN PRN Reason: nicotine craving Last Admin: 11/05/21 16:47 Dose: 4 mg Documented by: Olanzapine (Olanzapine 10 Mg Tablet) 40 mg PO BEDTIME [facility] Last Admin: 11/05/21 21:21 Dose: 40 mg Documented by: Prazosin HCl (Prazosin Hcl 1 Mg Capsule) 2 mg PO BEDTIME [facility]; Protocol Last Admin: 11/05/21 21:21 Dose: 2 mg Documented by: Topiramate (Topiramate 25 Mg Tablet) 50 mg PO BID [facility] Last Admin: 11/06/21 08:04 Dose: 50 mg Documented by: Allergies Allergies Allergy/AdvReac Type Severity Reaction Status Date / Time Sulfa (Sulfonamide Allergy Unknown RASH Verified 10/28/21 17:05 Antibiotics) Assessment & Plan Assessment & Plan (1) Schizoaffective disorder, bipolar type: Status: Acute Code(s): F25.0 - Schizoaffective disorder, bipolar type Plan Nnamdi is a 31 y.o. male who carries a dx of schizoaffective disorder, bipolar type. He presented to [facility] on 10/28/21?due to non-adherence on medications due to insurance issues since his discharge from on 10/24/2021. Pt endorsed SI but denied plan or intent. Endorsed paranoid ideations. Pt was discharged to the [facility] and he walked to [facility] from [place] in almost 100 degree heat. Plan: Will re-start meds from recent discharge- Tegretol XL 400 mg QAM and 600 mg QHS, Ativan 1 mg BID, Zyprexa 10 mg QAM and 30 mg QHS, and prazosin 2 mg QHS 11/01: synthroid 25 mcg restarted at pt request; he is supposed to be taking it outpt. got fioricet for JONES, ativan PRN for severe anxiety/SI. continue current regimen otherwise. 11/02: change zyprexa from 04/07 to 40 QHS. started wellbutrin XL 150 mg daily at pt request. 11/03: no changes 11/04; hypomanic, started on Topamax 25 mg po bid 11/05 increase Topamax up to 50 mg po bid 11/06: no changes. pt to restart topamax today after having missed it for the past 24H. I spent ___25___ minutes with the patient and/or on the patient floor today, greater than?50% of which was spent counseling/coordinating care. Reason for contiued inpatient stay Substantial Risk for: inability to function and rapid decompensation
[2021-11-06] MEDS: hydrOXYzine HCL 50 MG TABLET PO (14:45)
[2021-11-06] MEDS: Prazosin HCL 1 MG CAPSULE 2 MG PO (19:54)
[2021-11-06] MEDS: carBAMazepine ER 200 MG TAB.ER.12H 600 MG PO (19:54)
[2021-11-06] MEDS: OLANZapine 10 MG TABLET 40 MG PO (19:54)
[2021-11-06 20:18] VITALS: BP 117/76; PULSE 82; RESP 18; TEMP 36.6; O2SAT 96
[2021-11-07] MEDS: Levothyroxine Sodium 25 MCG TABLET PO (06:29)
[2021-11-07 07:30] VITALS: BP 114/73; PULSE 80; RESP 18; TEMP 36.3; O2SAT 98
[2021-11-07] MEDS: Nicotine 21 MG PATCH.TD24 TRANSDERMA (07:55)
[2021-11-07] MEDS: Topiramate 25 MG TABLET 50 MG PO ×2 (07:56→20:15)
[2021-11-07] MEDS: carBAMazepine ER 200 MG TAB.ER.12H 400 MG PO (07:56)
[2021-11-07] MEDS: buPROPion HCl XL 150 MG TAB.ER.24H PO (07:57)
[2021-11-07] MEDS: atenoloL 100 MG TABLET PO (07:57)
[2021-11-07] MEDS: Acetaminophen 325 MG TABLET 650 MG PO ×2 (08:23→16:46)
[2021-11-07] MEDS: Ibuprofen 600 MG TABLET PO ×2 (11:42→20:14)
[2021-11-07] MEDS: hydrOXYzine HCL 50 MG TABLET PO (14:40)
--- NOTE | 2021-11-07 19:07 | P.PNPSI_ITS ---
Subjective Subjective Date of Service: 11/07/21 Reason For Visit: Depression/SI Interim History: seems more stable than yesterday, mood improved. still anxious about being discharged too early. informs pt staying through the weekend is the plan and if things continue to go well we could see discharging next week. pt seems relieved by that statement and in agreement with that plan. no complaints or requests otherwise. mentally i'm getting better every day. per staff, not attending groups. JONES improved. no SI/HI/AVH. sleeping well. pacing, having intrusive thoguhts yesterday. Mental Status Exam Mental Status Exam Narrative: pt cooperative, pleasant. non-pressured speech, organized thoughts. appropriately dressed and groomed. slight PMA of pacing the halls. affect more flexible, normo-intense, non-labile. mood is feeling better every day. no paranoia or delusions expressed. no SI/SIBI/HI/AVH expressed. Diagnostics Vital Signs (24Hr): Vital Signs - 24 hr 11/06/21 20:18 11/07/21 07:30 Temperature 97.8 F 97.3 F Pulse Rate 82 80 Respiratory Rate 18 18 Blood Pressure 117/76 114/73 Pulse Oximetry 96 98 BMI result Body Mass Index 26.7 Medications Medications Current Medications Acetaminophen (Acetaminophen 325 Mg Tablet) 650 mg PO Q6H PRN PRN Reason: Headache/Pain Mild Scale (1-3) Last Admin: 11/07/21 16:46 Dose: 650 mg Documented by: Al Hydroxide/Mg Hydroxide (Magnesium Hydrox/Alum Hydrox 30 Ml Oral.Susp) 30 ml PO Q6H PRN PRN Reason: Heartburn/Nausea Albuterol Sulfate (Albuterol Sulfate 90 Mcg 8 Gm Inhaler) 2 puff INHALE Q4H PRN PRN Reason: wheezing Last Admin: 11/06/21 10:21 Dose: 2 puff Documented by: Atenolol (Atenolol 100 Mg Tablet) 100 mg PO DAILY [facility]; Protocol Last Admin: 11/07/21 07:57 Dose: 100 mg Documented by: Bupropion HCl (Bupropion Hcl Xl 150 Mg Tab.Er.24h) 150 mg PO DAILY [facility] Last Admin: 11/07/21 07:57 Dose: 150 mg Documented by: Carbamazepine (Carbamazepine Er 200 Mg Tab.Er.12h) 400 mg PO DAILY [facility] Last Admin: 11/07/21 07:56 Dose: 400 mg Documented by: Carbamazepine (Carbamazepine Er 200 Mg Tab.Er.12h) 600 mg PO BEDTIME [facility] Last Admin: 11/06/21 19:54 Dose: 600 mg Documented by: Hydroxyzine HCl (Hydroxyzine Hcl 25 Mg Tablet) 25 mg PO BEDTIME PRN PRN Reason: Anxiety Hydroxyzine HCl (Hydroxyzine Hcl 50 Mg Tablet) 50 mg PO Q4H PRN PRN Reason: Anxiety Last Admin: 11/07/21 14:40 Dose: 50 mg Documented by: Ibuprofen (Ibuprofen 600 Mg Tablet) 600 mg PO Q6H PRN PRN Reason: pain not relieved by tylenol Last Admin: 11/07/21 11:42 Dose: 600 mg Documented by: Levothyroxine Sodium (Levothyroxine Sodium 25 Mcg Tablet) 25 mcg PO DAILY@0600 [facility] Last Admin: 11/07/21 06:29 Dose: 25 mcg Documented by: Magnesium Hydroxide (Milk Of Magnesia 30 Ml Oral.Susp) 30 ml PO DAILY PRN PRN Reason: Constipation Multivitamins/Vitamin C (Multivitamin Tablet) 1 tab PO DAILY [facility] Last Admin: 11/07/21 07:57 Dose: Not Given Documented by: Nicotine (Nicotine 21 Mg Patch.Td24) 21 mg TRANSDERMA DAILY [facility] Last Admin: 11/07/21 07:55 Dose: 21 mg Documented by: Nicotine Polacrilex (Nicotine Polacrilex 2 Mg Gum) 4 mg BUCCAL Q2H PRN PRN Reason: nicotine craving Last Admin: 11/05/21 16:47 Dose: 4 mg Documented by: Olanzapine (Olanzapine 10 Mg Tablet) 40 mg PO BEDTIME [facility] Last Admin: 11/06/21 19:54 Dose: 40 mg Documented by: Prazosin HCl (Prazosin Hcl 1 Mg Capsule) 2 mg PO BEDTIME [facility]; Protocol Last Admin: 11/06/21 19:54 Dose: 2 mg Documented by: Topiramate (Topiramate 25 Mg Tablet) 50 mg PO BID [facility] Last Admin: 11/07/21 07:56 Dose: 50 mg Documented by: Allergies Allergies Allergy/AdvReac Type Severity Reaction Status Date / Time Sulfa (Sulfonamide Allergy Unknown RASH Verified 10/28/21 17:05 Antibiotics) Assessment & Plan Assessment & Plan (1) Schizoaffective disorder, bipolar type: Status: Acute Code(s): F25.0 - Schizoaffective disorder, bipolar type Plan Nnamdi is a 31 y.o. male who carries a dx of schizoaffective disorder, bipolar type. He presented to [facility] on 10/28/21?due to non-adherence on medications due to insurance issues since his discharge from on 10/24/2021. Pt endorsed SI but denied plan or intent. Endorsed paranoid ideations. Pt was discharged to the [facility] and he walked to [facility] [place] in almost 100 degree heat. Plan: Will re-start meds from recent discharge- Tegretol XL 400 mg QAM and 600 mg QHS, Ativan 1 mg BID, Zyprexa 10 mg QAM and 30 mg QHS, and prazosin 2 mg QHS 11/01: synthroid 25 mcg restarted at pt request; he is supposed to be taking it outpt. got fioricet for JONES, ativan PRN for severe anxiety/SI. continue current regimen otherwise. 11/02: change zyprexa from 30 to 40 QHS. started wellbutrin XL 150 mg daily at pt request. 11/03: no changes 11/04; hypomanic, started on Topamax 25 mg po bid 11/05 increase Topamax up to 50 mg po bid 11/06: no changes. pt to restart tegretol today after having missed it for the past 24H. 11/07: no changes. discussed discharge next week. I spent ___25___ minutes with the patient and/or on the patient floor today, greater than?50% of which was spent counseling/coordinating care. Reason for contiued inpatient stay Substantial Risk for: inability to function and rapid decompensation
[2021-11-07] MEDS: OLANZapine 10 MG TABLET 40 MG PO (20:14)
[2021-11-07] MEDS: Prazosin HCL 1 MG CAPSULE 2 MG PO (20:14)
[2021-11-07] MEDS: carBAMazepine ER 200 MG TAB.ER.12H 600 MG PO (20:14)
[2021-11-07 20:23] VITALS: BP 114/77; PULSE 74; RESP 18; TEMP 36.3; O2SAT 97
[2021-11-08] MEDS: Levothyroxine Sodium 25 MCG TABLET PO (06:26)
[2021-11-08 09:25] VITALS: BP 120/71; PULSE 95; RESP 18; TEMP 36.6; O2SAT 95
[2021-11-08] MEDS: carBAMazepine ER 200 MG TAB.ER.12H 400 MG PO (09:27)
[2021-11-08] MEDS: Multivitamin TABLET 1 TAB PO (09:28)
[2021-11-08] MEDS: buPROPion HCl XL 150 MG TAB.ER.24H PO (09:28)
[2021-11-08] MEDS: atenoloL 100 MG TABLET PO (09:28)
[2021-11-08] MEDS: Topiramate 25 MG TABLET 50 MG PO ×2 (09:28→20:04)
[2021-11-08] MEDS: Ibuprofen 600 MG TABLET PO ×2 (10:00→18:21)
[2021-11-08] MEDS: Nicotine 21 MG PATCH.TD24 TRANSDERMA (10:00)
[2021-11-08] MEDS: Acetaminophen 325 MG TABLET 650 MG PO (14:12)
[2021-11-08] MEDS: hydrOXYzine HCL 50 MG TABLET PO (15:16)
[2021-11-08 15:28] VITALS: BMI 28.3
--- NOTE | 2021-11-08 16:07 | P.PNPSI_ITS ---
Subjective Subjective Date of Service: 11/08/21 Reason For Visit: Depression/SI Interim History: appears as per yesterday. stable mood, organized thoughts. no complaints or requests. states that per his discussion with SW this morning he will be discharged to [facility] on friday. no JONES, mood even, improved. Mental Status Exam Mental Status Exam Narrative: pt cooperative, pleasant. non-pressured speech, organized thoughts. appropriately dressed and groomed. slight PMA of pacing the halls. affect more flexible, normo-intense, non-labile. mood is even, improved. no paranoia or delusions expressed. no SI/SIBI/HI/AVH expressed. Diagnostics Vital Signs (24Hr): Vital Signs - 24 hr 11/07/21 20:23 11/08/21 09:25 Temperature 97.3 F 97.8 F Pulse Rate 74 95 Respiratory Rate 18 18 Blood Pressure 114/77 120/71 Pulse Oximetry 97 95 BMI result Body Mass Index 28.3 Medications Medications Current Medications Acetaminophen (Acetaminophen 325 Mg Tablet) 650 mg PO Q6H PRN PRN Reason: Headache/Pain Mild Scale (1-3) Last Admin: 11/08/21 14:12 Dose: 650 mg Documented by: Al Hydroxide/Mg Hydroxide (Magnesium Hydrox/Alum Hydrox 30 Ml Oral.Susp) 30 ml PO Q6H PRN PRN Reason: Heartburn/Nausea Albuterol Sulfate (Albuterol Sulfate 90 Mcg 8 Gm Inhaler) 2 puff INHALE Q4H PRN PRN Reason: wheezing Last Admin: 11/06/21 10:21 Dose: 2 puff Documented by: Atenolol (Atenolol 100 Mg Tablet) 100 mg PO DAILY [facility]; Protocol Last Admin: 11/08/21 09:28 Dose: 100 mg Documented by: Bupropion HCl (Bupropion Hcl Xl 150 Mg Tab.Er.24h) 150 mg PO DAILY [facility] Last Admin: 11/08/21 09:28 Dose: 150 mg Documented by: Carbamazepine (Carbamazepine Er 200 Mg Tab.Er.12h) 400 mg PO DAILY [facility] Last Admin: 11/08/21 09:27 Dose: 400 mg Documented by: Carbamazepine (Carbamazepine Er 200 Mg Tab.Er.12h) 600 mg PO BEDTIME [facility] Last Admin: 11/07/21 20:14 Dose: 600 mg Documented by: Hydroxyzine HCl (Hydroxyzine Hcl 25 Mg Tablet) 25 mg PO BEDTIME PRN PRN Reason: Anxiety Hydroxyzine HCl (Hydroxyzine Hcl 50 Mg Tablet) 50 mg PO Q4H PRN PRN Reason: Anxiety Last Admin: 11/08/21 15:16 Dose: 50 mg Documented by: Ibuprofen (Ibuprofen 600 Mg Tablet) 600 mg PO Q6H PRN PRN Reason: pain not relieved by tylenol Last Admin: 11/08/21 10:00 Dose: 600 mg Documented by: Levothyroxine Sodium (Levothyroxine Sodium 25 Mcg Tablet) 25 mcg PO DAILY@0600 [facility] Last Admin: 11/08/21 06:26 Dose: 25 mcg Documented by: Magnesium Hydroxide (Milk Of Magnesia 30 Ml Oral.Susp) 30 ml PO DAILY PRN PRN Reason: Constipation Multivitamins/Vitamin C (Multivitamin Tablet) 1 tab PO DAILY [facility] Last Admin: 11/08/21 09:28 Dose: 1 tab Documented by: Nicotine (Nicotine 21 Mg Patch.Td24) 21 mg TRANSDERMA DAILY [facility] Last Admin: 11/08/21 10:00 Dose: 21 mg Documented by: Nicotine Polacrilex (Nicotine Polacrilex 2 Mg Gum) 4 mg BUCCAL Q2H PRN PRN Reason: nicotine craving Last Admin: 11/05/21 16:47 Dose: 4 mg Documented by: Olanzapine (Olanzapine 10 Mg Tablet) 40 mg PO BEDTIME [facility] Last Admin: 11/07/21 20:14 Dose: 40 mg Documented by: Prazosin HCl (Prazosin Hcl 1 Mg Capsule) 2 mg PO BEDTIME [facility]; Protocol Last Admin: 11/07/21 20:14 Dose: 2 mg Documented by: Topiramate (Topiramate 25 Mg Tablet) 50 mg PO BID [facility] Last Admin: 11/08/21 09:28 Dose: 50 mg Documented by: Allergies Allergies Allergy/AdvReac Type Severity Reaction Status Date / Time Sulfa (Sulfonamide Allergy Unknown RASH Verified 10/28/21 17:05 Antibiotics) Assessment & Plan Assessment & Plan (1) Schizoaffective disorder, bipolar type: Status: Acute Code(s): F25.0 - Schizoaffective disorder, bipolar type Plan Nnamdi is a 31 y.o. male who carries a dx of schizoaffective disorder, bipolar type. He presented [place] [facility] [place]/28/21?due to non-adherence on medications due to insurance issues since his discharge from on 10/24/2021. Pt endorsed SI but denied plan or intent. Endorsed paranoid ideations. Pt was discharged to the [facility] and he walked [place] [facility] [place] in almost 100 degree heat. Plan: Will re-start meds from recent discharge- Tegretol XL 400 mg QAM and 600 mg QHS, Ativan 1 mg BID, Zyprexa 10 mg QAM and 30 mg QHS, and prazosin 2 mg QHS 11/01: synthroid 25 mcg restarted at pt request; he is supposed to be taking it outpt. got fioricet for JONES, ativan PRN for severe anxiety/SI. continue current regimen otherwise. 11/02: change zyprexa from 30 to 40 QHS. started wellbutrin XL 150 mg daily at pt request. 11/03: no changes 11/04; hypomanic, started on Topamax 25 mg po bid 11/05 increase Topamax up to 50 mg po bid 11/06: no changes. pt to restart tegretol today after having missed it for the past 24H. 11/07: no changes. discussed discharge next week. 11/08: stable. DC friday. labs friday. I spent ___25___ minutes with the patient and/or on the patient floor today, greater than?50% of which was spent counseling/coordinating care. Reason for contiued inpatient stay Substantial Risk for: inability to function and rapid decompensation
[2021-11-08 20:01] VITALS: BP 139/80; PULSE 82; RESP 18; TEMP 36.3; O2SAT 97
[2021-11-08] MEDS: carBAMazepine ER 200 MG TAB.ER.12H 600 MG PO (20:04)
[2021-11-08] MEDS: OLANZapine 10 MG TABLET 40 MG PO (20:04)
[2021-11-08] MEDS: Prazosin HCL 1 MG CAPSULE 2 MG PO (20:04)
[2021-11-09 08:45] VITALS: BP 106/69; PULSE 91; RESP 17; TEMP 36.4; O2SAT 98
[2021-11-09] MEDS: Topiramate 25 MG TABLET 50 MG PO ×2 (08:54→20:41)
[2021-11-09] MEDS: buPROPion HCl XL 150 MG TAB.ER.24H PO (08:54)
[2021-11-09] MEDS: atenoloL 100 MG TABLET PO (08:55)
[2021-11-09] MEDS: Levothyroxine Sodium 25 MCG TABLET PO (08:55)
[2021-11-09] MEDS: carBAMazepine ER 200 MG TAB.ER.12H 400 MG PO (08:55)
[2021-11-09] MEDS: Multivitamin TABLET 1 TAB PO (08:55)
[2021-11-09] MEDS: Nicotine 21 MG PATCH.TD24 TRANSDERMA (08:56)
[2021-11-09] MEDS: hydrOXYzine HCL 50 MG TABLET PO ×2 (09:49→17:38)
[2021-11-09] MEDS: Acetaminophen 325 MG TABLET 650 MG PO ×2 (10:41→19:43)
[2021-11-09] MEDS: Ibuprofen 600 MG TABLET PO (12:46)
--- NOTE | 2021-11-09 12:56 | HO.PSYCHPN ---
Subjective Subjective Date of Service: 11/09/21 Reason For Visit: Depression/SI Interim History: calm, cooperative. stats he continues to feel better every day. planning for friday discharge. anxious only about getting his meds. per staff, attending some groups. feeling well. denies dep/anx/SI/HI/AVH. had weird thoughts about not knowing whether or not he was yesterday for a few minutes. Mental Status Exam Mental Status Exam Narrative: pt cooperative, pleasant. non-pressured speech, organized thoughts. appropriately dressed and groomed. slight PMA of pacing the halls. affect flexible, normo-intense, non-labile. mood is a little better every day. no paranoia or delusions expressed. no SI/SIBI/HI/AVH expressed. Diagnostics Vital Signs (24Hr): Vital Signs - 24 hr 11/08/21 20:01 11/09/21 08:45 Temperature 97.3 F 97.6 F Pulse Rate 82 91 Respiratory Rate 18 17 Blood Pressure 139/80 106/69 Pulse Oximetry 97 98 BMI result Body Mass Index 28.3 Medications Medications Current Medications Acetaminophen (Acetaminophen 325 Mg Tablet) 650 mg PO Q6H PRN PRN Reason: Headache/Pain Mild Scale (1-3) Last Admin: 11/09/21 10:41 Dose: 650 mg Documented by: Al Hydroxide/Mg Hydroxide (Magnesium Hydrox/Alum Hydrox 30 Ml Oral.Susp) 30 ml PO Q6H PRN PRN Reason: Heartburn/Nausea Albuterol Sulfate (Albuterol Sulfate 90 Mcg 8 Gm Inhaler) 2 puff INHALE Q4H PRN PRN Reason: wheezing Last Admin: 11/06/21 10:21 Dose: 2 puff Documented by: Atenolol (Atenolol 100 Mg Tablet) 100 mg PO DAILY [facility]; Protocol Last Admin: 11/09/21 08:55 Dose: 100 mg Documented by: Bupropion HCl (Bupropion Hcl Xl 150 Mg Tab.Er.24h) 150 mg PO DAILY [facility] Last Admin: 11/09/21 08:54 Dose: 150 mg Documented by: Carbamazepine (Carbamazepine Er 200 Mg Tab.Er.12h) 400 mg PO DAILY [facility] Last Admin: 11/09/21 08:55 Dose: 400 mg Documented by: Carbamazepine (Carbamazepine Er 200 Mg Tab.Er.12h) 600 mg PO BEDTIME [facility] Last Admin: 11/08/21 20:04 Dose: 600 mg Documented by: Hydroxyzine HCl (Hydroxyzine Hcl 25 Mg Tablet) 25 mg PO BEDTIME PRN PRN Reason: Anxiety Hydroxyzine HCl (Hydroxyzine Hcl 50 Mg Tablet) 50 mg PO Q4H PRN PRN Reason: Anxiety Last Admin: 11/09/21 09:49 Dose: 50 mg Documented by: Ibuprofen (Ibuprofen 600 Mg Tablet) 600 mg PO Q6H PRN PRN Reason: pain not relieved by tylenol Last Admin: 11/09/21 12:46 Dose: 600 mg Documented by: Levothyroxine Sodium (Levothyroxine Sodium 25 Mcg Tablet) 25 mcg PO DAILY@0600 [facility] Last Admin: 11/09/21 08:55 Dose: 25 mcg Documented by: Magnesium Hydroxide (Milk Of Magnesia 30 Ml Oral.Susp) 30 ml PO DAILY PRN PRN Reason: Constipation Multivitamins/Vitamin C (Multivitamin Tablet) 1 tab PO DAILY [facility] Last Admin: 11/09/21 08:55 Dose: 1 tab Documented by: Nicotine (Nicotine 21 Mg Patch.Td24) 21 mg TRANSDERMA DAILY [facility] Last Admin: 11/09/21 08:56 Dose: 21 mg Documented by: Nicotine Polacrilex (Nicotine Polacrilex 2 Mg Gum) 4 mg BUCCAL Q2H PRN PRN Reason: nicotine craving Last Admin: 11/05/21 16:47 Dose: 4 mg Documented by: Olanzapine (Olanzapine 10 Mg Tablet) 40 mg PO BEDTIME [facility] Last Admin: 11/08/21 20:04 Dose: 40 mg Documented by: Prazosin HCl (Prazosin Hcl 1 Mg Capsule) 2 mg PO BEDTIME [facility]; Protocol Last Admin: 11/08/21 20:04 Dose: 2 mg Documented by: Topiramate (Topiramate 25 Mg Tablet) 50 mg PO BID [facility] Last Admin: 11/09/21 08:54 Dose: 50 mg Documented by: Allergies Allergies Allergy/AdvReac Type Severity Reaction Status Date / Time Sulfa (Sulfonamide Allergy Unknown RASH Verified 10/28/21 17:05 Antibiotics) Assessment & Plan Assessment & Plan (1) Schizoaffective disorder, bipolar type: Status: Acute Code(s): F25.0 - Schizoaffective disorder, bipolar type Plan Nnamdi is a 31 y.o. male who carries a dx of schizoaffective disorder, bipolar type. He presented to [facility] on 10/28/21?due to non-adherence on medications due to insurance issues since his discharge from on 10/24/2021. Pt endorsed SI but denied plan or intent. Endorsed paranoid ideations. Pt was discharged to the [facility] and he walked to [facility] from [place] in almost 100 degree heat. Plan: Will re-start meds from recent discharge- Tegretol XL 400 mg QAM and 600 mg QHS, Ativan 1 mg BID, Zyprexa 10 mg QAM and 30 mg QHS, and prazosin 2 mg QHS 11/01: synthroid 25 mcg restarted at pt request; he is supposed to be taking it outpt. got fioricet for JONES, ativan PRN for severe anxiety/SI. continue current regimen otherwise. 11/02: change zyprexa from 10/30 to 40 QHS. started wellbutrin XL 150 mg daily at pt request. 11/03: no changes 11/04; hypomanic, started on Topamax 25 mg po bid 11/05 increase Topamax up to 50 mg po bid 11/06: no changes. pt to restart tegretol today after having missed it for the past 24H. 11/07: no changes. discussed discharge next week. 11/08 - 11/09: stable. DC friday. labs friday. I spent ___35___ minutes with the patient and/or on the patient floor today, greater than?50% of which was spent counseling/coordinating care. Reason for contiued inpatient stay Substantial Risk for: inability to function and rapid decompensation
--- NOTE | 2021-11-09 17:10 | PC.NURSE ---
[facility] contacted, they confirmed that they have recieved pt's transmitted prescriptions and are planning to deliver them [facility] on friday.
[2021-11-09 20:35] VITALS: BP 121/84; PULSE 78; RESP 18; TEMP 36.4; O2SAT 98
[2021-11-09] MEDS: OLANZapine 10 MG TABLET 40 MG PO (20:41)
[2021-11-09] MEDS: Prazosin HCL 1 MG CAPSULE 2 MG PO (20:41)
[2021-11-09] MEDS: carBAMazepine ER 200 MG TAB.ER.12H 600 MG PO (20:41)
[2021-11-10] MEDS: Levothyroxine Sodium 25 MCG TABLET PO (06:41)
[2021-11-10] MEDS: Acetaminophen 325 MG TABLET 650 MG PO ×2 (06:57→16:48)
[2021-11-10] MEDS: buPROPion HCl XL 150 MG TAB.ER.24H PO (08:36)
[2021-11-10] MEDS: Nicotine 21 MG PATCH.TD24 TRANSDERMA (08:36)
[2021-11-10] MEDS: atenoloL 100 MG TABLET PO (08:36)
[2021-11-10] MEDS: carBAMazepine ER 200 MG TAB.ER.12H 400 MG PO (08:36)
[2021-11-10] MEDS: Topiramate 25 MG TABLET 50 MG PO ×2 (08:37→20:43)
[2021-11-10] MEDS: Multivitamin TABLET 1 TAB PO (08:37)
[2021-11-10 09:04] VITALS: BP 121/72; PULSE 83; RESP 18; TEMP 36.3; O2SAT 97
[2021-11-10] MEDS: Ibuprofen 600 MG TABLET PO ×2 (09:21→20:45)
--- NOTE | 2021-11-10 09:54 | HO.PSYCHPN ---
Subjective Subjective Date of Service: 11/10/21 Reason For Visit: Depression/SI Subjective Notes: Conditional Voluntary Healthcare Proxy: No Guardianship: No Interim History: Patient was seen and discussed in rounds today. Records were reviewed. He is known to me from previous contacts. He is doing quite well and is being discharged early next week. He is compliant with his medications. Questions about Topamax discussed. He does have a lot of pacing. Eating and sleeping adequately. No complaints or side effects. No changes were made today Review of Systems Review of Systems Yes all other systems are reviewed and are negative Mental Status Exam Mental Status Exam Narrative: In today's visit he is alert, oriented and pleasant. Normal speech. Good eye contact. Affect is appropriate and varied. No signs of psychosis. No SI/HI. Cognitively is intact. Judgment and Diagnostics Vital Signs (24Hr): Vital Signs - 24 hr 11/09/21 20:35 11/10/21 09:04 Temperature 97.6 F 97.4 F Pulse Rate 78 83 Respiratory Rate 18 18 Blood Pressure 121/84 121/72 Pulse Oximetry 98 97 BMI result Body Mass Index 28.3 Medications Medications Current Medications Acetaminophen (Acetaminophen 325 Mg Tablet) 650 mg PO Q6H PRN PRN Reason: Headache/Pain Mild Scale (1-3) Last Admin: 11/10/21 06:57 Dose: 650 mg Documented by: Al Hydroxide/Mg Hydroxide (Magnesium Hydrox/Alum Hydrox 30 Ml Oral.Susp) 30 ml PO Q6H PRN PRN Reason: Heartburn/Nausea Albuterol Sulfate (Albuterol Sulfate 90 Mcg 8 Gm Inhaler) 2 puff INHALE Q4H PRN PRN Reason: wheezing Last Admin: 11/06/21 10:21 Dose: 2 puff Documented by: Atenolol (Atenolol 100 Mg Tablet) 100 mg PO DAILY [facility]; Protocol Last Admin: 11/10/21 08:36 Dose: 100 mg Documented by: Bupropion HCl (Bupropion Hcl Xl 150 Mg Tab.Er.24h) 150 mg PO DAILY [facility] Last Admin: 11/10/21 08:36 Dose: 150 mg Documented by: Carbamazepine (Carbamazepine Er 200 Mg Tab.Er.12h) 400 mg PO DAILY [facility] Last Admin: 11/10/21 08:36 Dose: 400 mg Documented by: Carbamazepine (Carbamazepine Er 200 Mg Tab.Er.12h) 600 mg PO BEDTIME [facility] Last Admin: 11/09/21 20:41 Dose: 600 mg Documented by: Hydroxyzine HCl (Hydroxyzine Hcl 25 Mg Tablet) 25 mg PO BEDTIME PRN PRN Reason: Anxiety Hydroxyzine HCl (Hydroxyzine Hcl 50 Mg Tablet) 50 mg PO Q4H PRN PRN Reason: Anxiety Last Admin: 11/09/21 17:38 Dose: 50 mg Documented by: Ibuprofen (Ibuprofen 600 Mg Tablet) 600 mg PO Q6H PRN PRN Reason: pain not relieved by tylenol Last Admin: 11/10/21 09:21 Dose: 600 mg Documented by: Levothyroxine Sodium (Levothyroxine Sodium 25 Mcg Tablet) 25 mcg PO DAILY@0600 [facility] Last Admin: 11/10/21 06:41 Dose: 25 mcg Documented by: Magnesium Hydroxide (Milk Of Magnesia 30 Ml Oral.Susp) 30 ml PO DAILY PRN PRN Reason: Constipation Multivitamins/Vitamin C (Multivitamin Tablet) 1 tab PO DAILY [facility] Last Admin: 11/10/21 08:37 Dose: 1 tab Documented by: Nicotine (Nicotine 21 Mg Patch.Td24) 21 mg TRANSDERMA DAILY [facility] Last Admin: 11/10/21 08:36 Dose: 21 mg Documented by: Nicotine Polacrilex (Nicotine Polacrilex 2 Mg Gum) 4 mg BUCCAL Q2H PRN PRN Reason: nicotine craving Last Admin: 11/05/21 16:47 Dose: 4 mg Documented by: Olanzapine (Olanzapine 10 Mg Tablet) 40 mg PO BEDTIME [facility] Last Admin: 11/09/21 20:41 Dose: 40 mg Documented by: Prazosin HCl (Prazosin Hcl 1 Mg Capsule) 2 mg PO BEDTIME [facility]; Protocol Last Admin: 11/09/21 20:41 Dose: 2 mg Documented by: Topiramate (Topiramate 25 Mg Tablet) 50 mg PO BID [facility] Last Admin: 11/10/21 08:37 Dose: 50 mg Documented by: Allergies Allergies Allergy/AdvReac Type Severity Reaction Status Date / Time Sulfa (Sulfonamide Allergy Unknown RASH Verified 10/28/21 17:05 Antibiotics) Assessment & Plan Assessment & Plan (1) Schizoaffective disorder, bipolar type: Status: Acute Code(s): F25.0 - Schizoaffective disorder, bipolar type Plan Nnamdi is a 31 y.o. male who carries a dx of schizoaffective disorder, bipolar type. He presented to [facility] on 10/28/21?due to non-adherence on medications due to insurance issues since his discharge from on 10/24/2021. Pt endorsed SI but denied plan or intent. Endorsed paranoid ideations. Pt was discharged to the [facility] and he walked to [facility] from [place] in almost 100 degree heat. Plan: Will re-start meds from recent discharge- Tegretol XL 400 mg QAM and 600 mg QHS, Ativan 1 mg BID, Zyprexa 10 mg QAM and 30 mg QHS, and prazosin 2 mg QHS 11/01: synthroid 25 mcg restarted at pt request; he is supposed to be taking it outpt. got fioricet for JONES, ativan PRN for severe anxiety/SI. continue current regimen otherwise. 11/02: change zyprexa from 10/30 to 40 QHS. started wellbutrin XL 150 mg daily at pt request. 11/03: no changes 11/04; hypomanic, started on Topamax 25 mg po bid 11/05 increase Topamax up to 50 mg po bid 11/06: no changes. pt to restart tegretol today after having missed it for the past 24H. 11/07: no changes. discussed discharge next week. 11/08 - 11/09: stable. DC friday. labs friday. 11/10: Continue current regimen and plans and early discharge next week I spent minutes with the patient and/or on the patient floor today, greater than?50% of which was spent counseling/coordinating care. Reason for contiued inpatient stay Substantial Risk for: other
[2021-11-10] MEDS: hydrOXYzine HCL 50 MG TABLET PO (16:36)
[2021-11-10 20:40] VITALS: BP 115/75; PULSE 70; RESP 18; TEMP 36.3; O2SAT 98
[2021-11-10] MEDS: Prazosin HCL 1 MG CAPSULE 2 MG PO (20:43)
[2021-11-10] MEDS: OLANZapine 10 MG TABLET 40 MG PO (20:43)
[2021-11-10] MEDS: carBAMazepine ER 200 MG TAB.ER.12H 600 MG PO (20:44)
[2021-11-11] MEDS: Levothyroxine Sodium 25 MCG TABLET PO (06:41)
[2021-11-11 09:33] VITALS: BP 118/73; PULSE 98; RESP 18; TEMP 36.6; O2SAT 98
[2021-11-11] MEDS: carBAMazepine ER 200 MG TAB.ER.12H 400 MG PO (09:34)
[2021-11-11] MEDS: buPROPion HCl XL 150 MG TAB.ER.24H PO (09:34)
[2021-11-11] MEDS: atenoloL 100 MG TABLET PO (09:35)
[2021-11-11] MEDS: Topiramate 25 MG TABLET 50 MG PO (09:35)
[2021-11-11] MEDS: Multivitamin TABLET 1 TAB PO (09:35)
[2021-11-11] MEDS: Nicotine 21 MG PATCH.TD24 TRANSDERMA (09:37)
--- NOTE | 2021-11-11 10:27 | P.PNPSI_ITS ---
Subjective Subjective Date of Service: 11/11/21 Reason For Visit: Depression/SI Subjective Notes: Conditional Voluntary Healthcare Proxy: No Guardianship: No Medical Problems Affecting Mental Status: No Interim History: Patient was seen and discussed in rounds today. Records and plans were reviewed. He has been stable, pleasant and interactive. Eating and sleeping adequately. He does a lot of pacing and listening to music. He is looking forward to discharge this week. He has no side effects. No changes were made today Medication Compliance: Yes Attending Groups: Yes Review of Systems Review of Systems Yes all other systems are reviewed and are negative Mental Status Exam Mental Status Exam Narrative: In today's visit he is alert, oriented and pleasant. Normal speech. Good eye contact. Affect is appropriate and varied. No signs of psychosis. No SI/HI. Cognitively is intact. Judgment and Diagnostics Vital Signs (24Hr): Vital Signs - 24 hr 11/10/21 20:40 11/11/21 09:33 Temperature 97.4 F 97.9 F Pulse Rate 70 98 Respiratory Rate 18 18 Blood Pressure 115/75 118/73 Pulse Oximetry 98 98 BMI result Body Mass Index 28.3 Medications Medications Current Medications Acetaminophen (Acetaminophen 325 Mg Tablet) 650 mg PO Q6H PRN PRN Reason: Headache/Pain Mild Scale (1-3) Last Admin: 11/10/21 16:48 Dose: 650 mg Documented by: Al Hydroxide/Mg Hydroxide (Magnesium Hydrox/Alum Hydrox 30 Ml Oral.Susp) 30 ml PO Q6H PRN PRN Reason: Heartburn/Nausea Albuterol Sulfate (Albuterol Sulfate 90 Mcg 8 Gm Inhaler) 2 puff INHALE Q4H PRN PRN Reason: wheezing Last Admin: 11/06/21 10:21 Dose: 2 puff Documented by: Atenolol (Atenolol 100 Mg Tablet) 100 mg PO DAILY [facility]; Protocol Last Admin: 11/11/21 09:35 Dose: 100 mg Documented by: Bupropion HCl (Bupropion Hcl Xl 150 Mg Tab.Er.24h) 150 mg PO DAILY [facility] Last Admin: 11/11/21 09:34 Dose: 150 mg Documented by: Carbamazepine (Carbamazepine Er 200 Mg Tab.Er.12h) 400 mg PO DAILY [facility] Last Admin: 11/11/21 09:34 Dose: 400 mg Documented by: Carbamazepine (Carbamazepine Er 200 Mg Tab.Er.12h) 600 mg PO BEDTIME DEE DEE Last Admin: 11/10/21 20:44 Dose: 600 mg Documented by: Hydroxyzine HCl (Hydroxyzine Hcl 25 Mg Tablet) 25 mg PO BEDTIME PRN PRN Reason: Anxiety Hydroxyzine HCl (Hydroxyzine Hcl 50 Mg Tablet) 50 mg PO Q4H PRN PRN Reason: Anxiety Last Admin: 11/10/21 16:36 Dose: 50 mg Documented by: Ibuprofen (Ibuprofen 600 Mg Tablet) 600 mg PO Q6H PRN PRN Reason: pain not relieved by tylenol Last Admin: 11/10/21 20:45 Dose: 600 mg Documented by: Levothyroxine Sodium (Levothyroxine Sodium 25 Mcg Tablet) 25 mcg PO DAILY@0600 [facility] Last Admin: 11/11/21 06:41 Dose: 25 mcg Documented by: Magnesium Hydroxide (Milk Of Magnesia 30 Ml Oral.Susp) 30 ml PO DAILY PRN PRN Reason: Constipation Multivitamins/Vitamin C (Multivitamin Tablet) 1 tab PO DAILY [facility] Last Admin: 11/11/21 09:35 Dose: 1 tab Documented by: Nicotine (Nicotine 21 Mg Patch.Td24) 21 mg TRANSDERMA DAILY [facility] Last Admin: 11/11/21 09:37 Dose: 21 mg Documented by: Nicotine Polacrilex (Nicotine Polacrilex 2 Mg Gum) 4 mg BUCCAL Q2H PRN PRN Reason: nicotine craving Last Admin: 11/05/21 16:47 Dose: 4 mg Documented by: Olanzapine (Olanzapine 10 Mg Tablet) 40 mg PO BEDTIME [facility] Last Admin: 11/10/21 20:43 Dose: 40 mg Documented by: Prazosin HCl (Prazosin Hcl 1 Mg Capsule) 2 mg PO BEDTIME [facility]; Protocol Last Admin: 11/10/21 20:43 Dose: 2 mg Documented by: Topiramate (Topiramate 25 Mg Tablet) 50 mg PO BID [facility] Last Admin: 11/11/21 09:35 Dose: 50 mg Documented by: Allergies Allergies Allergy/AdvReac Type Severity Reaction Status Date / Time Sulfa (Sulfonamide Allergy Unknown RASH Verified 10/28/21 17:05 Antibiotics) Assessment & Plan Assessment & Plan (1) Schizoaffective disorder, bipolar type: Status: Acute Code(s): F25.0 - Schizoaffective disorder, bipolar type Plan Nnamdi is a 31 y.o. male who carries a dx of schizoaffective disorder, bipolar type. He presented to [facility] ED on 10/28/21?due to non-adherence on medications due to insurance issues since his discharge from on 10/24/2021. Pt endorsed SI but denied plan or intent. Endorsed paranoid ideations. Pt was discharged to the [facility] and he walked to [facility] from [place] in almost 100 degree heat. Plan: Will re-start meds from recent discharge- Tegretol XL 400 mg QAM and 600 mg QHS, Ativan 1 mg BID, Zyprexa 10 mg QAM and 30 mg QHS, and prazosin 2 mg QHS 11/01: synthroid 25 mcg restarted at pt request; he is supposed to be taking it outpt. got fioricet for JONES, ativan PRN for severe anxiety/SI. continue current regimen otherwise. 11/02: change zyprexa from 30 to 40 QHS. started wellbutrin XL 150 mg daily at pt request. 11/03: no changes 11/04; hypomanic, started on Topamax 25 mg po bid 11/05 increase Topamax up to 50 mg po bid 11/06: no changes. pt to restart tegretol today after having missed it for the past 24H. 11/07: no changes. discussed discharge next week. 11/08 - 11/09: stable. DC friday. labs friday. 11/10: Continue current regimen and plans and early discharge next week 11/11: Continue current plans and regimen I spent minutes with the patient and/or on the patient floor today, gr eater than?50% of which was spent counseling/coordinating care. Reason for contiued inpatient stay Substantial Risk for: other
[2021-11-11] MEDS: Acetaminophen 325 MG TABLET 650 MG PO (17:19)
[2021-11-11] MEDS: hydrOXYzine HCL 50 MG TABLET PO (17:36)
[2021-11-11 18:00] VITALS: BP 120/75; PULSE 62; RESP 18; TEMP 36.2; O2SAT 97
--- NOTE | 2021-11-11 19:09 | PC.NURSE ---
Pt reported bug bites on his back, chest and right underarm, reporting they are itchy and hurt. Pt states they are new today. provider notified.
[2021-11-11] MEDS: Ibuprofen 600 MG TABLET PO (19:20)
[2021-11-11] MEDS: carBAMazepine ER 200 MG TAB.ER.12H 600 MG PO (20:50)
[2021-11-11] MEDS: OLANZapine 10 MG TABLET 40 MG PO (20:50)
[2021-11-11] MEDS: Prazosin HCL 1 MG CAPSULE 2 MG PO (20:50)
[2021-11-12] MEDS: Levothyroxine Sodium 25 MCG TABLET PO (06:52)
[2021-11-12] MEDS: Acetaminophen 325 MG TABLET 650 MG PO (08:36)
[2021-11-12] MEDS: Topiramate 25 MG TABLET 50 MG PO (08:37)
[2021-11-12] MEDS: atenoloL 100 MG TABLET PO (08:37)
[2021-11-12] MEDS: buPROPion HCl XL 150 MG TAB.ER.24H PO (08:37)
[2021-11-12] MEDS: carBAMazepine ER 200 MG TAB.ER.12H 400 MG PO (08:38)
[2021-11-12 08:50] VITALS: BP 140/75; PULSE 80; RESP 18; TEMP 36.2; O2SAT 99
[2021-11-12 08:50] LABS: MANUAL DIFF FLAG NO
[2021-11-12 08:53] LABS: Basophils Percent Auto 0.3 % (0-2); Eosinophils Absolute Auto 0.2 X10*3/uL (0.0-0.4); Eosinophils Percent Auto 2.7 % (0-4); Hematocrit 42.2 % (42.0-52.0); Hemoglobin 14.7 g/dl (14.0-18.0); Imm Gran Abs Auto 0.02 X10*3/uL (0.00-0.03); Imm Gran Pct Auto 0.3 % (0.0-0.4); Lymphocytes Absolute Auto 1.8 X10*3/uL (1.2-4.9); Lymphocytes Percent Auto 30.8 % (20-40); Mean Corpuscular HGB Conc 34.8 g/dl (31.0-36.0); Mean Corpuscular Hemoglobin 31.3 pg (27.0-33.0); Mean Corpuscular Volume 89.8 fL (80.0-98.0); Mean Platelet Volume 10.1 fL (9.4-12.4); Monocytes Absolute Auto 0.7 X10*3/uL (0.1-1.2); Monocytes Percent Auto 12.2 % (2-11); Neutrophils Absolute Auto 3.2 x10*3/uL (2.0-8.3); Neutrophils Percent Auto 53.7 % (45-73); Platelet Count 240 X10*3/uL (160-400); Red Cell Distribution Width 12.4 % (11.0-16.0)
[2021-11-12 09:12] LABS: Alanine Aminotransferase 22 U/L (0-40); Albumin Level 4.5 g/dL (3.5-5.0); Alkaline Phosphatase 74 U/L (39-117); Anion Gap 12 (12-20); Aspartate Amino Transferase 17 U/L (5-37); Bilirubin Direct < 0.2 mg/dL (0.0-0.5); Bilirubin Total 0.3 mg/dL (0.0-1.0); Blood Urea Nitrogen 16 mg/dL (9-16); Calcium 9.2 mg/dL (8.4-10.2); Carbon Dioxide 20 mmol/L (22-29); Chloride 107 mmol/L (96-108); Creatinine Clr Calc Pharmacy 116.8; Estimated Glomerular Filt Rate > 60; Glucose Random 110 mg/dL (60-115); Potassium 4.4 mmol/L (3.3-5.1); Sodium 135 mmol/L (135-145); Total Protein 7.3 g/dL (6.5-8.0)
--- NOTE | 2021-11-12 10:10 | P.DS_ITS ---
DS: Providers Provider Date of Service: 11/12/21 Date of admission: 10/30/21 12:04 Primary care physician: Unknown Physician DS: Diagnosis Discharge Diagnosis (1) Schizoaffective disorder, bipolar type: Status: Acute DS: Medications Discharge Medications Home Medications: Previous Rx's Medication Instructions Recorded albuterol sulfate 90 mcg/actuation 2 puff INHALATION Q4H PRN 30 Days 11/09/21 aerosol inhaler (ProAir HFA) #1 inhaler atenolol 100 mg tablet 100 mg PO DAILY 30 Days #30 tab 11/09/21 bupropion HCl 150 mg 24 hr tablet, 150 mg PO DAILY 30 Days #30 tab 11/09/21 extended release carbamazepine 200 mg 400 mg PO DAILY 30 Days #60 tab 11/09/21 tablet,extended release,12 hr carbamazepine 200 mg 600 mg PO BEDTIME 30 Days #90 tab 11/09/21 tablet,extended release,12 hr hydroxyzine HCl 25 mg tablet 25 mg PO DAILY PRN 30 Days #30 tab 11/09/21 ibuprofen 600 mg tablet 600 mg PO Q6H PRN 30 Days #120 tab 11/09/21 levothyroxine 25 mcg tablet 25 mcg PO DAILY@0600 30 Days #30 11/09/21 tab multivitamin (Daily-Lamont) 1 tab PO DAILY 30 Days #30 tab 11/09/21 nicotine 21 mg/24 hr daily 1 patch TRANSDERMAL DAILY 28 Days 11/09/21 transdermal patch #28 ea olanzapine 10 mg tablet 40 mg PO BEDTIME 30 Days #120 tab 11/09/21 prazosin 1 mg capsule 2 mg PO BEDTIME 30 Days #60 cap 11/09/21 topiramate 25 mg tablet 25 mg PO DAILY 30 Days #30 tab 11/12/21 Mental Status Exam Mental Status Exam Narrative: pt cooperative, pleasant. non-pressured speech, organized thoughts. appropria tely dressed and groomed. slight PMA of pacing the halls. affect flexible, normo-intense, non-labile. mood is stable, good. no paranoia or delusions expressed. no SI/SIBI/HI/AVH. Data Data Completed and Pending Completed studies during hospitalization [Text1]: 11/12/21 11/12/21 08:46 08:46 WBC 6.0 RBC 4.70 Hgb 14.7 Hct 42.2 MCV 89.8 MCH 31.3 MCHC 34.8 RDW 12.4 Plt Count 240 MPV 10.1 Immature Gran % (Auto) 0.3 Neut % (Auto) 53.7 Lymph % (Auto) 30.8 Cavalier % (Auto) 12.2 H Eos % (Auto) 2.7 Baso % (Auto) 0.3 Lymph # (Auto) 1.8 Cavalier # (Auto) 0.7 Eos # (Auto) 0.2 Baso # (Auto) 0.0 Abs Immat Gran (auto) 0.02 Absolute Neuts (auto) 3.2 Absolute Nucleated RBC 0.000 Nucleated RBC % (auto) 0.0 Sodium 135 Potassium 4.4 Chloride 107 Carbon Dioxide 20 L Anion Gap 12 BUN 16 Creatinine 1.01 Estim Creat Clear Calc 116.8 Estimated GFR > 60 Random Glucose 110 Calcium 9.2 Total Bilirubin 0.3 Direct Bilirubin < 0.2 AST 17 ALT 22 Alkaline Phosphatase 74 Total Protein 7.3 Albumin 4.5 Carbamazepine Pending DS: Summary Hospital Course Hospital Course: per 10/30 admission note: Nnamdi is a 31 y.o. male who carries a dx of schizoaffective disorder. He presented to [facility] ED on 10/28/21?due to non-adherence on medications due to insurance issues since his discharge from on 10/24/2021. Pt endorsed SI but denied plan or intent. Endorsed paranoid ideations. Pt was discharged to the [facility] and he walked to [facility] from [place] in almost 100 degree heat. I evaluated the pt this evening and upon interview he reports he liked the meds he was recently discharged on, ?I cant complain? for his meds. He says ?it was a weird situation,? in that ?I went to go get my meds and they?re telling me what the doctor assured me wouldn?t happen.? Pt says he had increased anxiety off his medications, felt like ?I started decompensating,? paranoid, ?wanting to take myself out, why am I here?? He currently denies SI. Pt says he wanted ?to get back here because its where I feel safe.? At this time, pt says ?I feel calm and safe.? Denies any self harm. Per pt, he has anxiety at baseline and ?I get overwhelmed when good or bad things happen.? He denies A/VH. Says sleep is good with medication. Past Psychiatric History: Recent discharge from [facility] on 10/24/21 for paranoia, SI h/o numerous psych hosps including one on [facility] in 2011, [facility] until 2 days [employer] [employer] (pt estimates 9 or 10 admissions). Dx of bipolar D/O. h/o care through [facility]. h/o SI and SA via overdose. h/o superficial cutting and punching lewis during adolescence. Medical Evaluation Reviewed: Yes PMFSH Family History: maternal side: anxiety, depression, alcohol dependence paternal side: schizoaffective disorder Social History: pt has one older brother and a younger brother and younger sister. ? all children have h/o having been removed from home by DCF at some point and having lived in foster care.? relationship with family members described as strained. Substance History: Utox positive for benzos and cannabis Trauma History: reports hx of; no details Precis: Nnamdi is a 31 y.o. male who carries a dx of schizoaffective disorder, bipolar type. He presented to [facility] ED on 10/28/21?due to non-adherence on medications due to insurance issues since his discharge from [facility] on 10/24/2021. Pt endorsed SI but denied plan or intent. Endorsed paranoid ideations. Pt was discharged to the [facility] and he walked to [facility] from [place] in almost 100 degree heat. Plan: Will re-start meds from recent discharge- Tegretol XL 400 mg QAM and 600 mg QHS, Ativan 1 mg BID, Zyprexa 10 mg QAM and 30 mg QHS, and prazosin 2 mg QHS 11/01: synthroid 25 mcg restarted at pt request; he is supposed to be taking it outpt.? got fioricet for JONES, ativan PRN for severe anxiety/SI.? continue current regimen otherwise. 11/02: change zyprexa from 04/07 to 40 QHS.? started wellbutrin XL 150 mg daily at pt request. 11/03: no changes 11/04; hypomanic, started on Topamax 25 mg po bid for JONES prophylaxis 11/05? increased Topamax up to 50 mg po bid 11/06: no changes. pt to restart tegretol today after having missed it for the past 24H. 11/07: no changes.? discussed discharge next week. 11/08 - 11/09: stable.? DC friday.? labs friday. 11/12: topamax decreased to 25 mg daily due to rash over w/e. otherwise stable and no change to mgmt. discharged to [facility]. largely stable this admission, some periods of bizarre thought content and paranoia. Time Spent with Patient Time attestation: Total time spent providing and/or coordinating discharge services: Time spent: Greater than 30 minutes Discharge Plan Discharge Patient Disposition: Snf Discharge Diagnosis: Bipolar Disorder, MRE Manic Referrals: Samara Quiroz ([facility]) [Other] - 1 Month (Follow up to discuss services) [facility] [Other] - 11/12/21 2:00 pm () Therapy & Psychiatry [Other] (Central intake will call you at your personal number or through the [facility] to provide your therapy and psychiatry appointments. Please call to check in if you do not hear from that) [place] [Physician] - 1 Week Discharge Medications: New multivitamin [Daily-Lamont] Tablet 1 tab PO DAILY 30 Days Qty: 30 0RF prazosin 1 mg Capsule 2 mg PO BEDTIME 30 Days Qty: 60 0RF Protocol: Hold for SBP< HOLD for SBP < : 90 olanzapine 10 mg Tablet 40 mg PO BEDTIME 30 Days Qty: 120 0RF levothyroxine 25 mcg Tablet 25 mcg PO DAILY@0600 30 Days Qty: 30 0RF carbamazepine 200 mg Tablet Extended Release 12 Hr 400 mg PO DAILY 30 Days Qty: 60 0RF carbamazepine 200 mg Tablet Extended Release 12 Hr 600 mg PO BEDTIME 30 Days Qty: 90 0RF hydroxyzine HCl 25 mg Tablet 25 mg PO DAILY PRN (Reason: Anxiety) 30 Days Qty: 30 0RF ibuprofen 600 mg Tablet 600 mg PO Q6H PRN (Reason: pain not relieved by tylenol) 30 Days Qty: 120 0RF bupropion HCl 150 mg Tablet Extended Release 24 Hr 150 mg PO DAILY 30 Days Qty: 30 0RF nicotine 21 mg/24 hr patch 24 hour 1 patch transdermal DAILY 28 Days Qty: 28 0RF topiramate 25 mg Tablet 25 mg PO DAILY 30 Days Qty: 30 0RF Continued atenolol 100 mg tablet 100 mg PO DAILY 30 Days Qty: 30 0RF albuterol sulfate [ProAir HFA] 90 mcg/actuation HFA aerosol inhaler 2 puff inhalation Q4H PRN (Reason: wheezing) 30 Days Qty: 1 0RF Discontinued multivitamin [Daily-Lamont] Tablet 1 tab PO DAILY 30 Days Qty: 30 0RF olanzapine 10 mg Tablet 30 mg PO BEDTIME 30 Days Qty: 90 0RF carbamazepine 200 mg Tablet Extended Release 12 Hr 600 mg PO BEDTIME 30 Days Qty: 90 0RF lorazepam [Ativan] 0.5 mg tablet 0.5 mg PO BID 5 Days Qty: 10 0RF Rx Instructions: take after finished with ativan 1 mg twice daily for 5 days trazodone 100 mg Tablet 100 mg PO BEDTIME 30 Days Qty: 30 0RF lorazepam [Ativan] 1 mg tablet 1 mg PO BID 5 Days Qty: 10 0RF Rx Instructions: take for 5 days then continue on to 0.5 mg po bid for 5 days carbamazepine 200 mg Tablet Extended Release 12 Hr 400 mg PO DAILY 30 Days Qty: 60 0RF olanzapine 10 mg tablet 10 mg PO DAILY 30 Days Qty: 30 0RF Discharge Orders: Discharge Order (Routine); Ordered 11/12/21 Ordered By: Rasta Max Diet: advance to usual diet Activity on Discharge: As tolerated Stand Alone Forms: Patient Portal Discharge page, Community Support Care Plan Goals: remain safe and sober in outpatient level of care Health Concerns: none Plan of Treatment: take medications as prescribed, attend appointments as scheduled Assessment: not at imminent risk of harm to self or others Discharge Date/Time: 11/12/21 12:37
--- NOTE | 2021-11-12 12:37 | PC.NURSE ---
Patient alert, oriented x3. Denies SI/HI, denies AH/VH. Given discharge instructions, verbalized understanding, no concerns reported.Given belongings, no concerns reported. Patient reports he is safe to be discharged.
== END 2021-11-12 12:37 | disposition home or self-care (01) | DRG 750 ==
LOC: HO.ED 10-29 13:34 → HO.PADLT16 10-30 12:09
PROVIDERS: Nurse Practitioner Family; Admitting Provider Psychiatry & Neurology Psychiatry; Emergency Provider Emergency Medicine Emergency Medical Services; Visit Provider Psychiatry & Neurology Psychiatry
DX: F25.0 Schizoaffective disorder, bipolar type (principal); R45.851 Suicidal ideations; Z91.14 Patient's other noncompliance with medication regimen; F17.210 Nicotine dependence, cigarettes, uncomplicated; Z71.6 Tobacco abuse counseling; Z20.822 Contact with and (suspected) exposure to COVID-19; Z88.2 Allergy status to sulfonamides; Z79.890 Hormone replacement therapy; Z79.899 Other long term (current) drug therapy
CPT/HCPCS: 36415; 80048; 80076; 80156; 80307; 85025; 87635; 99285

== ENCOUNTER 2021-11-18 20:54 | Emergency (ER) | payer OTHER, SELFPAY ==
[2021-11-18 20:59] VITALS: BP 121/82; PULSE 81; RESP 20; TEMP 36.1; O2SAT 97; BMI 26.6
--- NOTE | 2021-11-18 21:43 | ED_ITS ---
HPI - General Adult General Chief complaint: Psychiatric Symptoms Stated complaint: suicidal,hallucinations Time Seen by Provider: 11/18/21 21:37 Source: patient Limitations: no limitations History of Present Illness HPI narrative: This is a 31-year-old male who had been discharged from Psychiatry here, and has been staying at the [facility]. States he had been on medications but is off of them now and feels like he has been getting worse, has been having recent suicidal ideation, no specific plan. Did last eat around noon today, denies any physical complaints except a mild headache. He says appetite has been normal. He has also been hearing voices. He states he wants to be evaluated by the crisis team to be put back on medications. He admits drinking alcohol today denies any other illicit substances. Denies any chest pain, shortness of breath, abdominal pain Related Data Previous Rx's Medication Instructions Recorded albuterol sulfate 90 mcg/actuation 2 puff inhalation Q4H PRN wheezing 11/09/21 aerosol inhaler (ProAir HFA) 30 days #1 inhaler atenolol 100 mg tablet 100 mg PO DAILY 30 days #30 tabs 11/09/21 bupropion HCl 150 mg 24 hr tablet, 150 mg PO DAILY 30 days #30 tabs 11/09/21 extended release carbamazepine 200 mg 400 mg PO DAILY 30 days #60 tabs 11/09/21 tablet,extended release,12 hr carbamazepine 200 mg 600 mg PO BEDTIME 30 days #90 tabs 11/09/21 tablet,extended release,12 hr hydroxyzine HCl 25 mg tablet 25 mg PO DAILY PRN Anxiety 30 days 11/09/21 #30 tabs ibuprofen 600 mg tablet 600 mg PO Q6H PRN pain not 11/09/21 relieved by tylenol 30 days #120 tabs levothyroxine 25 mcg tablet 25 mcg PO DAILY@0600 30 days #30 11/09/21 tabs multivitamin (Daily-Lamont) 1 tab PO DAILY 30 days #30 tabs 11/09/21 nicotine 21 mg/24 hr daily 1 patch transdermal DAILY 28 days 11/09/21 transdermal patch #28 ea olanzapine 10 mg tablet 40 mg PO BEDTIME 30 days #120 tabs 11/09/21 prazosin 1 mg capsule 2 mg PO BEDTIME 30 days #60 caps 11/09/21 topiramate 25 mg tablet 25 mg PO DAILY 30 days #30 tabs 11/12/21 Allergies Allergy/AdvReac Type Severity Reaction Status Date / Time Sulfa (Sulfonamide Allergy Unknown RASH Verified 10/28/21 17:05 Antibiotics) Review of Systems Review of Systems: Yes all other systems are reviewed and are negative Constitutional: Constitutional: Reports as per HPI, Denies fever(s) and Reports headache(s) Eyes: Eyes: Reports as per HPI and Reports no additional eye complaints ENT: Reports system reviewed and no additional complaints, except as documented, Reports as per HPI, Reports headache(s), Denies nasal congestion, Denies nasal discharge and Denies sore throat Cardiovascular: Cardiovascular: Reports as per HPI, Denies chest pain and Denies dyspnea Respiratory: Respiratory: Reports as per HPI, Denies cough and Denies dyspnea Gastrointestinal: Gastrointestinal: Reports as per HPI, Denies abdominal pain, Denies diarrhea and Denies vomiting Genitourinary: Genitourinary: Reports as per HPI, Denies hematuria, Denies dysuria and Denies urinary frequency Musculoskeletal: Musculoskeletal: Reports no additional musculoskeletal complaints and Denies numbness Integumentary/Breasts: Skin/Breast: Reports as per HPI and Denies rash Neurologic: Reports as per HPI, Reports headache(s), Denies focal weakness and Denies numbness Psychiatric: Psychiatric: Reports no additional psychiatric complaints and Reports as per HPI Endocrine: Endocrine: Reports no additional endocrine complaints and Reports as per HPI Hematologic/Lymphatic: Hematologic/Lymphatic: Reports no additional hematologic/lymphatic complaints, Reports as per HPI and Reports other (No peripheral edema) [facility] Social History Social History Household Members: None Housing: Other Housing Other:: Homeless Do you presently have visiting nurse or other home services: No Alcohol intake: current Patient Tobacco Use Status: Current everyday Tobacco user Tobacco use type: Cigarette Cigarette Packs Per Day: 0.5 Cigarettes Per Day: 10.0 e-Cigarette/Vaping Use: Never Used Second Hand Smoke Exposure: No Substance Use Type: Marijuana Advance Directives: No service: No Sexual orientation: Did not discuss. Physical Exam ED Vital Signs: Vital Signs - 24 hr 11/18/21 20:59 11/19/21 00:00 11/19/21 01:38 Temperature 97 F 97.9 F Pulse Rate 81 80 Respiratory Rate 20 20 16 Blood Pressure 121/82 117/62 Pulse Oximetry 97 95 96 Oxygen Delivery Method Room Air Room Air Room Air BMI result Body Mass Index 26.6 Const General: no acute distress Orientation/consciousness: patient oriented x3 HENMT Head: Yes normal to inspection General nose exam: Normal external nose present Mouth: moist mucous membranes Throat: Yes posterior oropharynx normal, Yes tonsils normal and Yes uvula midline Eyes Eyelids: Yes eyelids normal Conjunctivae: conjunctivae normal Pupils: Equal, round and reactive pupils present Neck Neck: Yes supple Resp Effort & Inspection: normal respiratory effort Auscultation: clear to auscultation bilaterally Cardio Rate: regular rate Rhythm: regular rhythm Heart sounds: S1 normal heart sound present, S2 normal heart sound present, no gallops, no murmurs and no rubs GI Inspection: No distended Palpation (GI): Soft to palpation and nontender Auscultation: normal bowel sounds Skin General skin exam: other (Warm and dry) Neuro General: patient oriented x3 and CN's II-XI intact bilaterally Cranial nerves: Yes Equal, round and reactive pupils present Extrem General: Yes no pedal edema Psych Affect: normal affect Attitude: cooperative Medical Decision Making MDM Narrative Medical decision making narrative: Patient with history of schizoaffective disorder, has been off of medicines, complains of hearing voices and feeling suicidal. Patient was calm and cooperative and appeared to interact normally in the ED. Patient admitted alcohol use, had an alcohol level of 95. Patient did felt nausea and was given Zofran 4 mg ODT Lab Data Lab results reviewed: Yes I reviewed the patient's lab results. Labs: Lab Results 11/18/21 11/18/21 11/19/21 Range/Units 23:55 23:55 01:44 Urine Opiates Screen Not Detected (Not Detect) Urine Fentanyl Screen Not Detected (Not Detect) Ur Barbiturates Screen Not Detected (Not Detect) Ur Phencyclidine Scrn Not Detected (Not Detect) Ur Amphetamines Screen Not Detected (Not Detect) U Benzodiazepines Scrn Not Detected (Not Detect) Urine Cocaine Screen Not Detected (Not Detect) U Marijuana (THC) Screen Not Detected (Not Detect) Ethyl Alcohol 95 mg/dL COVID-19 ([facility]) Negative (Negative) COVID-19 Clin Com See Note Discharge Plan Discharge Clinical Impression: Suicidal ideation Patient Disposition: Still a Patient Prescriptions: No Action multivitamin [Daily-Lamont] Tablet 1 tab PO DAILY 30 Days Qty: 30 0RF prazosin 1 mg Capsule 2 mg PO BEDTIME 30 Days Qty: 60 0RF Protocol: Hold for SBP< HOLD for SBP < : 90 olanzapine 10 mg Tablet 40 mg PO BEDTIME 30 Days Qty: 120 0RF levothyroxine 25 mcg Tablet 25 mcg PO DAILY@0600 30 Days Qty: 30 0RF carbamazepine 200 mg Tablet Extended Release 12 Hr 400 mg PO DAILY 30 Days Qty: 60 0RF carbamazepine 200 mg Tablet Extended Release 12 Hr 600 mg PO BEDTIME 30 Days Qty: 90 0RF hydroxyzine HCl 25 mg Tablet 25 mg PO DAILY PRN (Reason: Anxiety) 30 Days Qty: 30 0RF ibuprofen 600 mg Tablet 600 mg PO Q6H PRN (Reason: pain not relieved by tylenol) 30 Days Qty: 120 0RF bupropion HCl 150 mg Tablet Extended Release 24 Hr 150 mg PO DAILY 30 Days Qty: 30 0RF atenolol 100 mg tablet 100 mg PO DAILY 30 Days Qty: 30 0RF albuterol sulfate [ProAir HFA] 90 mcg/actuation HFA aerosol inhaler 2 puff inhalation Q4H PRN (Reason: wheezing) 30 Days Qty: 1 0RF nicotine 21 mg/24 hr patch 24 hour 1 patch transdermal DAILY 28 Days Qty: 28 0RF topiramate 25 mg Tablet 25 mg PO DAILY 30 Days Qty: 30 0RF
[2021-11-19] VITALS: RESP 20; O2SAT 95
[2021-11-19 00:16] LABS: Ethanol 95 mg/dL
[2021-11-19 00:20] LABS: COVID-19 Test Negative (Negative)
--- NOTE | 2021-11-19 01:20 | PC.NURSE ---
Addendum entered by Sarah Valente 11/19/21 07:01: Report given to NADIRA Chong Original Note: report received from NADIRA Draper. pt sleeping. no signs of acute distress notice. breathing equally unlabored. close monitoring maintained
[2021-11-19 01:38] VITALS: BP 117/62; PULSE 80; RESP 16; TEMP 36.6; O2SAT 96
[2021-11-19] MEDS: Ondansetron ODT 4 MG TAB.RAPDIS TRANSLINGU (02:01)
[2021-11-19 02:07] LABS: Amphetamine Screen Urine Not Detected (Not Detect); Barbiturates, Urine Not Detected (Not Detect); Benzodiazepines Screen Urine Not Detected (Not Detect); Cannabinoid Screen Urine Not Detected (Not Detect); Cocaine Screen Urine Not Detected (Not Detect); Fentanyl, urine Not Detected (Not Detect); Opiate Screen Urine Not Detected (Not Detect); Phencyclidine Screen Urine Not Detected (Not Detect)
--- NOTE | 2021-11-19 05:57 | PC.NURSE ---
Online N referral completed.
[2021-11-19] MEDS: LORazepam 1 MG TABLET 2 MG PO (05:59)
[2021-11-19 06:00] VITALS: BP 121/69; PULSE 82; RESP 20; TEMP 36.1; O2SAT 96
[2021-11-19] MEDS: Acetaminophen 325 MG TABLET 650 MG PO (08:41)
--- NOTE | 2021-11-19 08:43 | PC.NURSE ---
Tylenol given for 6/10 headache BHN at bedside for eval at this time
[2021-11-19 10:05] VITALS: BP 121/63; PULSE 73; RESP 16; O2SAT 96
--- NOTE | 2021-11-19 10:13 | PC.NURSE ---
Addendum entered by Arlette Redding 11/19/21 11:01: Plan for respite, no bed available at this time, per [facility] follow up assessment to be completed later to assess bed availability Original Note: Pt alert/oriented. Polite with this RN, reports AH/VH and denies SI stating, no I dont feel that way anymore now that I know there is a plan Requesting coffee and given. Pt states recently here x 1 week ago.
--- NOTE | 2021-11-19 11:35 | PHA.MEDREC ---
Pharmacy Consult ? Medication Reconciliation Pharmacy has completed the medication reconciliation.
[2021-11-19] MEDS: Nicotine 21 MG PATCH.TD24 TRANSDERMA (16:28)
[2021-11-19 16:29] VITALS: BP 119/72; PULSE 81; RESP 16
[2021-11-19] MEDS: atenoloL 100 MG TABLET PO (16:29)
[2021-11-19] MEDS: carBAMazepine ER 200 MG TAB.ER.12H 400 MG PO (16:29)
[2021-11-19] MEDS: buPROPion HCl XL 150 MG TAB.ER.24H PO (16:29)
[2021-11-19] MEDS: Levothyroxine Sodium 25 MCG TABLET PO (16:29)
[2021-11-19] MEDS: Topiramate 25 MG TABLET PO (16:29)
[2021-11-19 20:24] VITALS: BP 119/67; PULSE 62; RESP 18; TEMP 36.3; O2SAT 96
[2021-11-19] MEDS: Ibuprofen 600 MG TABLET PO (21:11)
[2021-11-19] MEDS: Prazosin HCL 1 MG CAPSULE 2 MG PO (21:16)
[2021-11-19] MEDS: carBAMazepine ER 200 MG TAB.ER.12H 600 MG PO (21:16)
--- NOTE | 2021-11-19 21:16 | PC.NURSE ---
medicated per provider order, pt c/o 5/ sciatic pain, given PRN tylenol. pt declined zyprexa - doesn't feel like medication is helping.
--- NOTE | 2021-11-20 06:03 | PC.NURSE ---
Patient slept through the night, no distress observed/reported, disposition per N is Respite bed search, N will coordinate the bed search, medication compliant, VSS, behavior appropriate and non concerning, will continue to monitor.
[2021-11-20 06:39] VITALS: BP 105/62; PULSE 74; RESP 17; TEMP 36.9; O2SAT 97
--- NOTE | 2021-11-20 07:20 | PC.NURSE ---
patient appears to remain asleep at present respirations are even and unlabored patient appears in no distress
[2021-11-20 07:52] VITALS: BP 111/77; PULSE 83; RESP 12; TEMP 36.6; O2SAT 96
[2021-11-20] MEDS: Levothyroxine Sodium 25 MCG TABLET PO (08:15)
[2021-11-20] MEDS: buPROPion HCl XL 150 MG TAB.ER.24H PO (08:15)
[2021-11-20] MEDS: Nicotine 21 MG PATCH.TD24 TRANSDERMA (08:15)
[2021-11-20] MEDS: atenoloL 100 MG TABLET PO (08:15)
[2021-11-20] MEDS: Multivitamin TABLET 1 TAB PO (08:15)
[2021-11-20] MEDS: Topiramate 25 MG TABLET PO (08:15)
[2021-11-20] MEDS: carBAMazepine ER 200 MG TAB.ER.12H 400 MG PO (08:15)
--- NOTE | 2021-11-20 09:42 | MHC.CARE ---
PT is a [facility] bedsearch.? [facility] supervisor opening and picking Edil contacted CARE Team this morning stating a bed was found and if the provider is comfortable with a discharge to [facility], [facility] will provide transportation to their [facility] facility where pt will be seen by a clinician there as a follow up.? This disposition was discussed with and agreed upon by ED provider Madhav Martin and pt?s nurse Дмитрий Soto.
== END 2021-11-20 09:34 ==
PROVIDERS: Emergency Provider Emergency Medicine
DX: R45.851 Suicidal ideations (principal); F25.9 Schizoaffective disorder, unspecified; Z20.822 Contact with and (suspected) exposure to COVID-19; Z59.02 Unsheltered homelessness
CPT/HCPCS: 36415; 80307; 82077; 87635; 99284; 99285